=== PATIENT | male | born 1950 | race Caucasian/White ===

== ENCOUNTER 2018-08-11 07:48 | Day surgery (SDC) | payer MEDICARE, OTHER ==
[~2018-08-11 07:48] MED LIST: ALPRAZolam 0.25 MG TAB PO PRN; ALPRAZolam 0.5 MG TAB PO PRN; ASPIRIN 325 MG TAB PO STA; ATORVASTATIN 80 MG TAB PO STA; NITROGLYCERIN SL TABS 0.4 MG TAB SUBLINGUAL PRN; SODIUM CHLORIDE 0.9% 1,000 ML in EMPTY BAG 1 BAG IV ONE
[2018-08-11] MEDS ORDERED: fentaNYL (PF) 50 MCG/ML 2 ML AMP IVP ONE (12:57)
[2018-08-11] MEDS ORDERED: LIDOCAINE 1% INJ 10MG/ML (20 ML MDV) SQ ONE (12:58)
[2018-08-11] MEDS ORDERED: VERAPAMIL SYRINGE (5 MG/10 ML) INTRAARTER ONE (13:00)
[2018-08-11] MEDS ORDERED: MIDAZOLAM (PF) 2 MG/2 ML VIAL IVP ONE (13:01)
[2018-08-11] MEDS ORDERED: BIVALIRUDIN 250 MG in SODIUM CHLORIDE 0.9% 50 ML IV ONE (13:09)
[2018-08-11] MEDS ORDERED: BIVALIRUDIN BOLUS 250 MG/50 ML IV ONE (13:09)
[2018-08-11] MEDS ORDERED: PRASUGREL 10 MG TAB ONE (13:12)
[2018-08-11] MEDS ORDERED: PRASUGREL 10 MG TAB PO ONE (13:14)
[2018-08-11] MEDS ORDERED: IOPAMIDOL-370 125ML BTL INJ ONE (13:25)
[2018-08-11] MEDS ORDERED: NITROGLYCERIN 1000MCG/10ML SYRINGE INTRACORON ONE (13:29)
[2018-08-11] MEDS ORDERED: IOPAMIDOL-370 100ML BTL INJ ONE (13:41)
[2018-08-11] MEDS ORDERED: NITROGLYCERIN SL TABS 0.4 MG TAB SUBLINGUAL PRN (13:51)
[2018-08-11] MEDS ORDERED: ATROPINE SULFATE 0.1 MG/ML 10ML SYRINGE IV PRN (13:51)
[2018-08-11] MEDS ORDERED: MAG HYDROX/AL HYDROX/SIMETH 30 ML CUP PO PRN (13:51)
[2018-08-11] MEDS ORDERED: RX INFO: IV CONTRAST WAS GIVEN 1 EACH MISC MISCELLANE PRN (13:51)
[2018-08-11] MEDS ORDERED: ZOLPIDEM 5 MG TAB PO PRN (13:51)
[2018-08-11] MEDS ORDERED: TRIAMCINOLONE 0.1% CREAM 80 GM TUBE TOPICAL PRN (13:53)
[2018-08-11] MEDS ORDERED: SODIUM CHLORIDE 0.9% 1,000 ML IV SCH (14:00)
[2018-08-11] MEDS ORDERED: ACETAMINOPHEN TAB 325 MG TAB PO PRN (16:42)
--- NOTE | 2018-08-11 18:59 | CC ---
CARDIAC CATHETERIZATION REPORT Mr. Devries is a 68-year-old male with history of hypertension and hyperlipidemia who has been complaining of new onset chest discomfort, exertional in pattern with T-wave inversion anteriorly. In view of that, recommendation made regarding cardiac catheterization. The procedures as well as risks and complications were discussed with the patient who are in full understanding and agreement. DESCRIPTION OF PROCEDURE: Patient was brought to the cath lab radiology technician in a fasting semisedate state after receiving fentanyl and Benadryl and achieving moderate conscious sedated state. Using Xylocaine anesthesia and Seldinger technique, a a 6-Ghanaian sheath was introduced in the right radial artery. Selective right and left coronary angiography was performed using 5- Ghanaian 3 and half bend right and left [place] catheter. Multiple views of the coronary artery including hemiaxial views were obtained. Following that, angioplasty and stenting was performed. Following that, a 5-Ghanaian tight pigtail catheter was introduced into the left ventricle and a 30 degree GE view of the left ventricle was obtained. Following that, catheter and sheath were removed. Hemostasis was obtained with deployment of a TR band. There was no immediate complication. Patient was returned to his room in stable condition. FINDINGS: LEFT MAIN: This is a short size vessel bifurcating into left circumflex and left anterior descending artery. Left main coronary artery has no evidence of high-grade stenosis. LEFT ANTERIOR DESCENDING ARTERY: This is a large-sized vessel reaching toward the apex giving rise to 2 diagonal branches. The left anterior descending artery proximally has a 99% stenosis. The diagonal branch has mild plaque of 30%. The rest of the vessel has no high-grade stenosis. LEFT CIRCUMFLEX: This is a nondominant vessel giving rise to 3 obtuse marginal branches. The third one is largest in caliber. The left circumflex is about 20% plaque in the mid segment. The rest of the vessel has no high-grade stenosis. RIGHT CORONARY ARTERY: This is a large dominant vessel bifurcating distally into PDA and posterolateral segment and branches. The right coronary artery as well as branches have no evidence of obstructive coronary artery disease. LEFT VENTRICULOGRAM: Left ventriculogram was performed in 30 degree GE view and revealed mild distal anterior wall hypokinesis. Ejection fraction 50%. There was no significant mitral regurgitation. HEMODYNAMICS: There was no gradient across the aortic valve. The left ventricle end-diastolic pressure was 14 mmHg. CONCLUSION: 1. Critical stenosis involving the proximal left anterior descending artery. 2. Mild disease in the left circumflex. 3. Minimally impaired left ventricular systolic function. RECOMMENDATIONS: In view of finding anatomy, I recommend proceeding with angioplasty and stenting. The procedure as well as risks and complication were discussed with the patient who is in full understanding and agreement. KACEY / CLEMENTE: [id number] /
--- NOTE | 2018-08-11 19:03 | PTCA ---
PERCUTANEOUSTRANS CORORONARY ANGIOGRAPHY Mr. Devries 68-year-old male, history of hypertension, hyperlipidemia, who has been complaining of new onset angina pectoris, underwent cardiac catheterization, was found to have critical stenosis involving the proximal LAD. In view of that, recommendation was made regarding angioplasty and stenting. The procedure as well as risks and complications were discussed with the patient who is in full understanding and agreement. PROCEDURE: A 6-Slovenian FL 3.5 guiding catheter was introduced into the system. After cannulating the left main a 0.014 balanced medium weight J-wire was advanced across the lesion, positioned distally, then a 2.5 x 12 mm Trek balloon was advanced and one inflation at 8 atmospheres was done. Following that, the balloon was removed and a 2.5 x 15 mm Xience Marlene stent was deployed. It was dilated at 16 atmospheres. After the last inflation, after appropriate wait, the balloon and the guidewire were withdrawn back in the guiding catheter. Images were obtained, repeated. Those images reveal stable successful stenting. At that point, the guiding catheter, the balloon and the guidewire were removed. The left ventriculogram was performed. Following that, the catheter and sheath were removed. Hemostasis was obtained with deployment of a TR band. There was no immediate complication. Patient was returned to his room in stable condition. Of note, the patient received Angiomax per protocol as well as oral loading dose of Effient. He had chest discomfort and EKG changes with the inflations that improved at the end of the procedure. RESULTS: Successful stenting of the proximal LAD with reduction of stenosis from 99% to 0%. RECOMMENDATIONS: Patient will be continued on aspirin, Effient, beta blockers, vivien inhibitors and statin. The importance of dual antiplatelet treatment was discussed with the patient and his family and they are in full understanding and agreement. DURATION OF PROCEDURE: 47 minutes. MMODL / IJN: [id number] /
--- NOTE | 2018-08-11 19:08 | LTR ---
DATE OF SERVICE: 08/11/[address] Valle: I had the pleasure of performing cardiac catheterization and coronary angioplasty and stenting on Mr. Devries at [facility] on August 11 and a full copy of procedure note will be forwarded to you. In brief, he underwent successful stenting of his proximal LAD. I am hopeful that this procedure will stabilize his status. Thank you again for allowing me to participate in his care. Please feel free to call with any questions. Sincerely, KACEY / CLEMENTE: [id number] /
[2018-08-11] MEDS: METOPROLOL TARTRATE 25 MG TAB PO SCH (20:46)
[2018-08-11] MEDS ORDERED: LISINOPRIL 20 MG TAB PO SCH (21:00)
[2018-08-11] MEDS ORDERED: ATORVASTATIN 80 MG TAB PO SCH (21:00)
[2018-08-11] MEDS ORDERED: amLODIPine 5 MG TAB PO SCH (21:00)
[2018-08-12 01:08] VITALS: BMI 30.9
[2018-08-12 01:18] VITALS: PULSE 56
[2018-08-12] MEDS ORDERED: LEVOTHYROXINE 112 MCG TAB PO SCH (06:30)
[2018-08-12 07:00] LABS: Anion Gap 7 mmol/L; Blood Urea Nitrogen 19 mg/dL (9-20); Calcium 9.3 mg/dL (8.4-10.2); Carbon Dioxide 27 mmol/L (22-30); Chloride 109 mmol/L (98-107); Glucose 99 mg/dL (74-99); Potassium 4.5 mmol/L (3.5-5.1); Sodium 143 mmol/L (137-145)
[2018-08-12] MEDS ORDERED: PANTOPRAZOLE 40 MG TABLET PO SCH (07:30)
--- NOTE | 2018-08-12 07:49 | P.PN ---
Subjective Progress Note Date: 08/12/18 Discharge note This is a pleasant 68-year-old gentleman with history of hypertension and hyperlipidemia, he was brought to the hospital yesterday by Dr. Andres underwent a cardiac catheterization which revealed a critical stenosis involving the proximal LAD with mild disease in the circumflex. Subsequent to that patient underwent stent placement of the LAD. He was seen and examined this morning, denied any chest pain or difficulty in breathing. Hemodynamically stable. Sodium 143, potassium 4.5, BUN 19 and creatinine 0.9. Objective - Vital Signs Vital signs: Vital Signs Temp 98.4 F 08/12/18 00:00 Pulse 56 L 08/12/18 00:00 Resp 18 08/12/18 00:00 BP 133/74 08/12/18 00:00 Pulse Ox 93 L 08/12/18 00:00 Intake & Output 08/11/18 08/12/18 08/12/18 18:59 06:59 18:59 Intake Total 185 Output Total 1 Balance 185 -1 Weight 101.7 kg Intake: IV 185 Output: Urine 1 Other: Voiding Method Toilet # Voids 1 - Exam PHYSICAL EXAMINATION: GENERAL: 68-year-old gentleman in no acute distress at the time of my examination HEENT: Head is atraumatic, normocephalic. Pupils equal, round. Sclera anicteric. Conjunctiva are clear. Mucous membranes of the mouth are moist. Neck is supple. There is no elevated jugular venous pressure. No carotid bruit is heard. HEART EXAMINATION: Heart S1, S2 normal. No murmur or gallop heard. CHEST EXAMINATION: Lungs are clear to auscultation and precussion. No chest wall tenderness is noted on palpation or with deep breathing. ABDOMEN: Soft, nontender. Bowel sounds are heard. No organomegaly noted. EXTREMITIES: 2+ peripheral pulses with no evidence of peripheral edema and no calf tenderness noted. Right radial site clean and dry, good distal pulse. NEUROLOGIC patient is awake, alert and oriented 3 . . - Labs CBC & Chem 7: 08/12/18 05:44 Labs: Abnormal Lab Results - Last 24 Hours (Table) 08/12/18 Range/Units 05:44 Chloride 109 H (98-107) mmol/L Assessment and Plan Plan: Assessment and plan #1 status post angioplasty and stenting of the LAD #2 hypertension #3 hyperlipidemia Plan Patient may be discharged home today. Follow-up appointment with Dr. Andres in the office in one week. Discharge medications include aspirin 81 mg daily, Lipitor 80 mg daily, Synthroid 112 g daily, Zestril 20 mg daily, metoprolol 25 mg twice a day, Effient 10 mg daily and sublingual nitroglycerin as needed for chest pain. DNP note has been reviewed, I agree with a documented findings and plan of care. Patient was seen and examined.
[2018-08-12] MEDS: METOPROLOL TARTRATE 25 MG TAB PO SCH (08:21)
[2018-08-12 08:56] VITALS: BP 120/69; RESP 20; TEMP 98.2
[2018-08-12] MEDS ORDERED: ASPIRIN 81 MG PO SCH (09:00)
[2018-08-12] MEDS ORDERED: MONTELUKAST 10 MG TAB PO SCH (09:00)
[2018-08-12] MEDS ORDERED: PRASUGREL 10 MG TAB PO SCH (12:00)
[2018-08-13] MEDS ORDERED: CLOPIDOGREL 75 MG TAB PO SCH (09:00)
== END 2018-08-12 11:13 | disposition home or self-care (01) ==
LOC: CATHCVL 07:48 → 3SCARD 13:44 → CATHCVL 08-12 11:13
PROVIDERS: ATTEND Internal Medicine Interventional Cardiology
DX: I25.110 Atherosclerotic heart disease of native coronary artery with unstable angina pectoris (principal); I10 Essential (primary) hypertension; E78.2 Mixed hyperlipidemia; E78.00 Pure hypercholesterolemia, unspecified; Z82.49 Family history of ischemic heart disease and other diseases of the circulatory system; Z79.82 Long term (current) use of aspirin; Z79.890 Hormone replacement therapy; Z79.899 Other long term (current) drug therapy; Z88.0 Allergy status to penicillin
CPT/HCPCS: 94760; 93458; 80048; C9600; C1769 ×2; C1887; C1894; C1725; C1874; J2001; J3010; J0583; Q9967 ×2; J2250

== ENCOUNTER → 2018-11-05 | Outpatient (CLI) | payer MEDICARE, OTHER ==
[2018-11-05 17:11] LABS: Chol/HDL Ratio 3.83; LDL Cholesterol,Calculated 57.8 mg/dL (0.0-131.0); VLDL Calculation 24.2 mg/dL (5.00-40.00)
== END | disposition home or self-care (01) ==
LOC: LABWHC1 09:04
PROVIDERS: ATTEND Nurse Practitioner Adult Health
DX: E78.2 Mixed hyperlipidemia (principal)
CPT/HCPCS: 36415; 80061; 84450; 84460

== ENCOUNTER → 2019-03-05 | Outpatient (CLI) | payer MEDICARE, OTHER ==
[2019-03-05 16:01] LABS: Albumin 4.5 g/dL (3.80-4.90); Albumin/Globulin Ratio 2.81 (1.60-3.17); Anion Gap 6.1 mmol/L (4.00-12.00); Calcium 9.2 mg/dL (8.7-10.3); Carbon Dioxide 25.9 mmol/L (21.6-31.8); Chol/HDL Ratio 3.94; Globulin 1.6 g/dL (1.6-3.3); LDL Cholesterol,Calculated 63.2 mg/dL (0.0-131.0); Non-African American GFR(CKD) 75.9 (60.0-200.0); Potassium 4.2 mmol/L (3.5-5.5); Total Bilirubin 0.9 mg/dL (0.2-1.2); Total Protein 6.1 g/dL (6.2-8.2); VLDL Calculation 27.8 mg/dL (5.00-40.00)
== END | disposition home or self-care (01) ==
LOC: LABWHC1 09:39
PROVIDERS: ATTEND Internal Medicine Interventional Cardiology
DX: E78.2 Mixed hyperlipidemia (principal)
CPT/HCPCS: 36415; 80053; 80061

== ENCOUNTER → 2019-08-19 | Outpatient (CLI) | payer MEDICARE ==
[2019-08-19 16:33] LABS: Albumin 4.5 g/dL (3.80-4.90); Albumin/Globulin Ratio 2.65 (1.60-3.17); Anion Gap 8.2 mmol/L (4.00-12.00); Calcium 9.2 mg/dL (8.7-10.3); Carbon Dioxide 25.8 mmol/L (21.6-31.8); Chol/HDL Ratio 3.86; Globulin 1.7 g/dL (1.6-3.3); LDL Cholesterol,Calculated 61.4 mg/dL (0.0-131.0); Non-African American GFR(CKD) 75.9 (60.0-200.0); Potassium 4.4 mmol/L (3.5-5.5); Total Protein 6.2 g/dL (6.2-8.2); VLDL Calculation 21.6 mg/dL (5.00-40.00)
== END | disposition home or self-care (01) ==
LOC: LABWHC1 10:11
PROVIDERS: ATTEND Internal Medicine Interventional Cardiology
DX: E78.2 Mixed hyperlipidemia (principal)
CPT/HCPCS: 36415; 80053; 80061

== ENCOUNTER → 2020-02-11 | Outpatient (CLI) | payer MEDICARE ==
[2020-02-11 20:20] LABS: Albumin 4.5 g/dL (3.80-4.90); Albumin/Globulin Ratio 2.65 (1.60-3.17); Anion Gap 5.8 mmol/L (4.00-12.00); Calcium 9.3 mg/dL (8.7-10.3); Carbon Dioxide 29.2 mmol/L (21.6-31.8); Chol/HDL Ratio 3.91; Globulin 1.7 g/dL (1.6-3.3); Non-African American GFR(CKD) 75.9 (60.0-200.0); Potassium 4.5 mmol/L (3.5-5.5); Total Bilirubin 0.7 mg/dL (0.2-1.2); Total Protein 6.2 g/dL (6.2-8.2)
== END | disposition home or self-care (01) ==
LOC: LABWHC1 12:42
PROVIDERS: ATTEND Nurse Practitioner Adult Health
DX: I10 Essential (primary) hypertension (principal); I25.5 Ischemic cardiomyopathy; E78.2 Mixed hyperlipidemia
CPT/HCPCS: 36415; 80053; 80061

== ENCOUNTER → 2020-02-18 | Day surgery (SDC) | payer MEDICARE ==
[2020-02-16 12:22] VITALS: BMI 30.2
[~2020-02-18] MED LIST changes: +ASPIRIN 325 MG TAB PO ONE; -ASPIRIN 325 MG TAB PO STA; +ASPIRIN 81 MG ONE; +ASPIRIN 81 MG PO SCH; +ATORVASTATIN 80 MG TAB PO ONE; +ATORVASTATIN 80 MG TAB PO SCH; -ATORVASTATIN 80 MG TAB PO STA; +BENAZEPRIL HCL 20 MG PO SCH; +CHOLECALCIFEROL 1,000 UNIT TAB PO SCH; +FAMOTIDINE 20 MG/2 ML VIAL IV ONE; +FLUTICASONE 50MCG/SPRAY NASAL 16GM EA NOSTRIL SCH; +HEPARIN SODIUM 1,000 UN/ML (10ML VL) IV ONE; +HYDROPHILIC CREAM 120 GM JAR TOPICAL PRN; +IOPAMIDOL-370 125ML BTL INJ ONE; +ISOSORBIDE MONONITRATE ER 30 MG TAB.ER.24H PO SCH; +LEVOTHYROXINE 125 MCG TAB PO SCH; +LIDOCAINE 1% INJ 10MG/ML (20 ML MDV) SQ ONE; +MD COMMUNICATION TO PHARMACY 1 EACH MISC PO ONE; +METOPROLOL TARTRATE 25 MG TAB PO SCH; +MONTELUKAST 10 MG TAB PO SCH; +NON FORMULARY DRUG (Saw Palmetto [Saw Palmetto] 500 MG Capsule) PO SCH; +PANTOPRAZOLE 40 MG TABLET PO SCH; +RX INFO: IV CONTRAST WAS GIVEN 1 EACH MISC MISCELLANE PRN; +SODIUM CHLORIDE 0.9% 1,000 ML IV SCH; +VERAPAMIL SYRINGE (5 MG/10 ML) INTRAARTER ONE; +amLODIPine 5 MG TAB PO SCH; +diphenhydrAMINE 50 MG/ML 1 ML VIAL IVP STA; +fentaNYL (PF) 50 MCG/ML 2 ML AMP IV ONE; +methylPREDNISolone SOD SUCCI 125 MG/2 ML VIAL IV STA
[2020-02-18 06:37] LABS: Basophils # (A) 0.1 k/uL (0-0.2); Basophils % (A) 1 %; Eosinophils # (A) 0.2 k/uL (0-0.7); Eosinophils % (A) 2 %; HCT 48.3 % (39.0-53.0); HGB 16.2 gm/dL (13.0-17.5); Lymphocytes # (A) 1.6 k/uL (1.0-4.8); Lymphocytes % (A) 20 %; MCH 29.5 pg (25.0-35.0); MCHC 33.5 g/dL (31.0-37.0); Mean Platelet Volume 7.1; Monocytes # (A) 0.5 k/uL (0-1.0); Monocytes % (A) 6 %; Neutrophils # (A) 5.7 k/uL (1.3-7.7); Neutrophils % (A) 70 %; Platelet Count 218 k/uL (150-450); RBC 5.49 m/uL (4.30-5.90); RDW 12.8 % (11.5-15.5); WBC 8.1 k/uL (3.8-10.6)
[2020-02-18 06:41] VITALS: RESP 18
[2020-02-18 06:46] LABS: African American GFR (CKD) >90 (>60 ml/min/1.73 sqM); Anion Gap 6 mmol/L; Blood Urea Nitrogen 22 mg/dL (9-20); Calcium 9.4 mg/dL (8.4-10.2); Carbon Dioxide 29 mmol/L (22-30); Chloride 107 mmol/L (98-107); Glucose 121 mg/dL (74-99); Non-African American GFR(CKD) 83 (>60 ml/min/1.73 sqM); Potassium 3.9 mmol/L (3.5-5.1); Sodium 142 mmol/L (137-145)
[2020-02-18 07:16] VITALS: TEMP 98.3
--- NOTE | 2020-02-18 10:23 | P.GSCN ---
History of Present Illness Consult date: 02/18/20 Reason for Consult: CAD Requesting physician: Olivier Andres History of present illness: This is a 69-year-old gentleman who follows at the [facility] for primary care and with Dr. Andres for cardiology. He has a previous medical history of coronary artery disease with stenting to his LAD in August 2018, hypertension, hyperlipidemia, hypothyroidism, osteoarthritis, tobacco use as a teenager but none since, and family history of premature coronary artery disease with 2 brothers diagnosed before the age of 60. He presented today for elective heart catheterization with Dr. Andres after having exertional chest discomfort and shortness of breath for the previous 6 months which he states was similar to his prior stent placement. Heart catheterization revealed 99% stenosis to the proximal LAD. Due to this finding Dr. Arias from cardiothoracic surgery was consulted for surgical revascularization recommendations. Of note he had a transthoracic echocardiogram in the office 01/25/2020 which demonstrated normal LV size with ejection fraction 45-50%, grade 1 diastolic dysfunction, mild left ventricular hypertrophy, mild mitral regurgitation with calcified mitral valve, and mild tricuspid valve regurgitation. Review of Systems Review of systems was completed and was negative except as noted - Cardiovascular Reports as per HPI, Reports chest pain, Reports decreased exercise tolerance, Reports dyspnea on exertion Past Medical History Past Medical History: Coronary Artery Disease (CAD), Chest Pain / Angina, G ERD/Reflux, Hearing Disorder / Deafness, Hyperlipidemia, Hypertension, Skin Disorder, Thyroid Disorder Additional Past Medical History / Comment(s): c/o shortness of breath w/ exercise, then CP. Arthritis. Skin is itchy, no known diagnosis. History of Any Multi-Drug Resistant Organisms: None Reported Past Surgical History: Heart Catheterization With Stent, Hernia Repair Additional Past Surgical History / Comment(s): nasal polyp surgeries, hernia surgeries Past Anesthesia/Blood Transfusion Reactions: No Reported Reaction, Motion Sickness Date of Last Stent Placement:: 08/2018 Past Psychological History: No Psychological Hx Reported Smoking Status: Never smoker Past Alcohol Use History: Rare Past Drug Use History: None Reported - Past Family History Mother Family Medical History: Cancer Brother(s) Family Medical History: Coronary Artery Disease (CAD), CVA/TIA, Myocardial Infarction ([place]) Father Family Medical History: COPD, Coronary Artery Disease (CAD) Medications and Allergies Home Medications Medication Instructions Recorded Confirmed Type Fluticasone Nasal [place] [Flonase 2 spr EA NOSTRIL HS 02/16/15 02/18/20 History Nasal [place]] Levothyroxine Sodium [Synthroid] 125 mcg PO DAILY 02/16/15 02/18/20 History Montelukast [Singulair] 10 mg PO DAILY 02/16/15 02/18/20 History Saw [place] 450 mg PO BID 02/16/15 02/18/20 History Aspirin [Adult Low Dose Aspirin EC] 81 mg PO DAILY 08/08/18 02/18/20 History Omeprazole 20 mg PO DAILY 08/08/18 02/18/20 History Metoprolol Tartrate 25 mg PO BID 08/11/18 02/18/20 History Atorvastatin [Lipitor] 80 mg PO HS #303 tab 08/12/18 02/18/20 Rx Nitroglycerin Sl Tabs [Nitrostat] 0.4 mg SUBLINGUAL Q5M PRN #25 tab 08/12/18 02/18/20 Rx Acetaminophen [Tylenol Extra 500 - 1,000 mg PO DIRECTED PRN 02/16/20 02/18/20 History Strength] Benazepril HCl [Lotensin] 20 mg PO HS 02/16/20 02/18/20 History Cholecalciferol [Vitamin D3 (25 2,000 unit PO DAILY 02/16/20 02/18/20 History Mcg = 1000 Iu)] Hydrophilic Cream [Kerodex 71 1 applic TOPICAL DAILY PRN 02/16/20 02/18/20 History Cream] amLODIPine [Norvasc] 5 mg PO HS 02/16/20 02/18/20 History Isosorbide Mononitrate ER [Imdur] 30 mg PO DAILY #30 tab.er.24h 02/18/20 Rx Levothyroxine Sodium [Synthroid] 125 mcg PO DAILY tab 02/18/20 Rx Allergies Allergy/AdvReac Type Severity Reaction Status Date / Time Penicillins Allergy Rash/Hives Verified 02/18/20 06:15 Iodine and Iodide Containing AdvReac warm and Verified 02/18/20 06:15 Produc clammy Surgical - Exam Vital Signs Temp Pulse Resp BP Pulse Ox 98.3 F 56 L 18 123/70 95 02/18/20 06:39 02/18/20 06:39 02/18/20 06:39 02/18/20 06:39 02/18/20 06:39 - General well developed, well nourished, no distress, no pain - Eyes normal ocular movement - ENT decreased hearing - Neck no masses, no bruits, trachea midline - Respiratory Lungs sounds clear bilaterally. Respirations even, nonlabored. Currently on room air with oxygen saturation 92%. No chest wall deformities. No clubbing or cyanosis present. - Cardiovascular S1, S2 present. Regular rate and rhythm, sinus rhythm on telemetry. Palpable peripheral pulses bilaterally. No edema present. No calf pain or tenderness noted. - Abdomen Abdomen: soft, non tender, bowel sounds - Genitourinary Deferred - Rectum Deferred - Integumentary no rash, no growths - Neurologic normal coordination, normal sensation - Musculoskeletal normal posture - Psychiatric oriented to time, oriented to person, oriented to place, speech is normal, memory intact Results - Labs 02/18/20 06:25 02/18/20 06:25 Abnormal Lab Results - Last 24 Hours (Table) 02/18/20 Range/Units 06:25 BUN 22 H (9-20) mg/dL Glucose 121 H (74-99) mg/dL Diabetes panel 02/18/20 Range/Units 06:25 Sodium 142 (137-145) mmol/L Potassium 3.9 (3.5-5.1) mmol/L Chloride 107 (98-107) mmol/L Carbon Dioxide 29 (22-30) mmol/L BUN 22 H (9-20) mg/dL Creatinine 0.93 (0.66-1.25) mg/dL Glucose 121 H (74-99) mg/dL Calcium 9.4 (8.4-10.2) mg/dL Calcium panel 02/18/20 Range/Units 06:25 Calcium 9.4 (8.4-10.2) mg/dL Pituitary panel 02/18/20 Range/Units 06:25 Sodium 142 (137-145) mmol/L Potassium 3.9 (3.5-5.1) mmol/L Chloride 107 (98-107) mmol/L Carbon Dioxide 29 (22-30) mmol/L BUN 22 H (9-20) mg/dL Creatinine 0.93 (0.66-1.25) mg/dL Glucose 121 H (74-99) mg/dL Calcium 9.4 (8.4-10.2) mg/dL Adrenal panel 02/18/20 Range/Units 06:25 Sodium 142 (137-145) mmol/L Potassium 3.9 (3.5-5.1) mmol/L Chloride 107 (98-107) mmol/L Carbon Dioxide 29 (22-30) mmol/L BUN 22 H (9-20) mg/dL Creatinine 0.93 (0.66-1.25) mg/dL Glucose 121 H (74-99) mg/dL Calcium 9.4 (8.4-10.2) mg/dL - Imaging Additional studies: Heart catheterization films reviewed Assessment and Plan Assessment: 1. Coronary artery disease, 99% proximal LAD stenosis, previous stent placement in August 2018 2. History of hypertension 3. History of hyperlipidemia 4. Hypothyroidism 5. Family history of premature coronary artery disease Plan: The patient was seen and examined at the bedside in the extended stay unit with the present. Chart/diagnostics were reviewed. The usual perioperative course of coronary artery bypass surgery was discussed in detail with the vahid paredes and his , risks and benefits were reviewed, all questions were answered, and the patient did consent to surgery. Preoperative testing was initiated. We will calculate STS risk score once testing has been completed. Recommend continuing aspirin, statin, beta bakari therapy. The patient's heart catheterization films will be reviewed today by Dr. Arias, further recommendations to follow regarding timing of surgery. Medical management of other comorbidities per Dr. Andres. Thank you Dr. Andres for this consult. We look forward to working with you in the care of your patient Time with Patient: Greater than 30
--- NOTE | 2020-02-18 10:26 | XR ---
EXAMINATION TYPE: XR chest 2V DATE OF EXAM: 02/18/2020 COMPARISON: NONE HISTORY: Preopen cardiac surgery. TECHNIQUE: Frontal and lateral views of the chest are obtained. FINDINGS: There is no focal air space opacity, pleural effusion, or pneumothorax seen. The cardiac silhouette size is upper limits of normal with atherosclerotic change aortic knob. The osseous stru ctures are intact. Overlying EKG leads. IMPRESSION: No acute cardiopulmonary process.
--- NOTE | 2020-02-18 10:41 | CC ---
CARDIAC CATHETERIZATION REPORT Mr. Devries is a 69-year-old male with known history of coronary artery disease who in August 2018 underwent stenting of his proximal LAD. He had for the last few months symptoms of progressive dyspnea on exertion and chest discomfort. In view of that, recommendation regarding cardiac catheterization, the procedures, risks, and complication were discussed with the patient who is in full understanding and agreement. PROCEDURE: Patient was brought to the senior cytogenetics laboratory director in a fasting semi-sedated state after receiving fentanyl and Benadryl and achieving moderate conscious sedated state. Using Xylocaine anesthesia and Seldinger technique, a 6-Burmese sheath was introduced in the right radial artery. Selective right and left coronary angiography performed using 5-Burmese 3.5 bend, right and left [place] catheter, multiple views of the coronary artery including hemiaxial views obtained. Following that, a 5-Burmese tight pigtail catheter was introduced in the left ventricle and a 30-degree GE view of the left ventricle was obtained. Following that, catheter and sheath were removed. Hemostasis was obtained with deployment of a TR band. There was no immediate complication. Patient is returned to his room in stable condition. Of note, the patient received 5000 units of intravenous heparin as well as intra-arterial verapamil. FINDINGS: LEFT MAIN: This is a short size vessel, bifurcating into left circumflex, left anterior descending artery. Left main artery has no evidence of high-grade stenosis. LEFT ANTERIOR DESCENDING ARTERY: This is a large-sized vessel, reaching toward the apex with a wraparound apex segment, giving rise to 2 diagonal branches and the second one is moderate in caliber. The first one is small. The left anterior descending artery at the ostium has a 99% stenosis, extending to the proximal stent with severe in- stent restenosis. The rest of the vessel has no high-grade stenosis. LEFT CIRCUMFLEX: This is a nondominant vessel, giving rise to a large obtuse marginal branch. The left circumflex has mild intimal disease of 20% to 30% without any evidence of high-grade stenosis. RIGHT CORONARY ARTERY: This is a large dominant vessel, bifurcating into PDA and posterolateral segment and branches. The right coronary artery has mild intimal disease of 10% to 20% in the mid segment. COLLATERALS: There are faint collaterals with right septals toward the LAD. LEFT VENTRICULOGRAM: The ventriculogram was performed in 30-degree GE view and revealed a normal left ventricular size and systolic function. Ejection fraction of 50% to 55%. There was no significant mitral regurgitation. HEMODYNAMICS: There was no gradient across the aortic valve. The left ventricular end- diastolic pressure was 10 - 15 mmHg. CONCLUSION: 1. Severe in-stent restenosis of the LAD involving the ostium of the LAD. 2. Mild disease in the right coronary artery and the left circumflex. 3. Preserved left ventricular size and systolic function. RECOMMENDATION: In view of finding in the anatomy, I recommend proceeding with evaluation for coronary artery bypass grafting with HERNDON to LAD. Will obtain the surgical opinion and depending on that, further recommendation will be made. Those findings and recommendation were discussed with the patient and his family who are in full understanding and agreement. Duration of the procedure is 20 minutes. KACEY / MARIN: [id number] /
[2020-02-18 10:47] LABS: ALT 25 U/L (4-49); AST 22 U/L (17-59); African American GFR (CKD) >90 (>60 ml/min/1.73 sqM); Albumin 4.2 g/dL (3.5-5.0); Alkaline Phosphatase 77 U/L (38-126); Anion Gap 10 mmol/L; Blood Urea Nitrogen 20 mg/dL (9-20); Calcium 9.2 mg/dL (8.4-10.2); Carbon Dioxide 24 mmol/L (22-30); Chloride 107 mmol/L (98-107); Glucose 176 mg/dL (74-99); Magnesium 1.8 mg/dL (1.6-2.3); Non-African American GFR(CKD) 88 (>60 ml/min/1.73 sqM); Sodium 141 mmol/L (137-145); Total Bilirubin 0.9 mg/dL (0.2-1.3); Total Protein 6.5 g/dL (6.3-8.2)
[2020-02-18 10:56] LABS: Partial Thromboplastin Time 36.9 sec (22.0-30.0); Prothrombin Time 10.3 sec (9.0-12.0)
[2020-02-18 11:28] LABS: Appearance,Urine Clear (Clear); Bilirubin,Urine Negative (Negative); Blood,Urine Negative (Negative); Color,Urine Light Yellow; Glucose,Urine (UA) Negative (Negative); Ketones,Urine Negative (Negative); Leukocyte Esterase,Urine Negative (Negative); Nitrite,Urine Negative (Negative); PH, Urine 7.5 (5.0-8.0); Protein,Urine Negative (Negative); Specific Gravity,Urine 1.033 (1.001-1.035); Urobilinogen,Urine <2.0 mg/dL (<2.0)
--- NOTE | 2020-02-18 12:48 | US ---
EXAMINATION TYPE: US carotid duplex BILAT DATE OF EXAM: 02/18/2020 COMPARISON: NONE CLINICAL HISTORY: Pre-Op Cardiac Surgery. Pre-Op CABG EXAM MEASUREMENTS: RIGHT: Peak Systolic Velocity (PSV) cm/sec ----- Right CCA: 82.3 ----- Right ICA: 119.4 ----- Right ECA: 163.4 ICA/CCA ratio: 1.4 RIGHT: End Diastole cm/sec ----- Right CCA: 13.1 ----- Right ICA: 28.9 ----- Right ECA: 7.7 LEFT: Peak Systolic Velocity (PSV) cm/sec ----- Left CCA: 82.3 ----- Left ICA: 60.1 ----- Left ECA: 206.0 ICA/CCA ratio: 0.7 LEFT: End Diastole cm/sec ----- Left CCA: 13.1 ----- Left ICA: 16.5 ----- Left ECA: 16.4 VERTEBRALS (direction of flow): Right Vertebral: Antegrade Left Vertebral: Antegrade Rhythm: Normal Buckley scale images show mild to moderate eccentric plaque carotid bulb level left greater than right. Velocity measurements and ratios remain within normal limits and visualized portion of both internal carotid arteries. IMPRESSION: Mild to moderate atherosclerotic changes bilaterally without hemodynamically significant stenosis seen in either internal carotid artery. Criteria for Assigning % of Stenosis / Diameter reduction (Estimation based on the indirect measurements of the internal carotid artery velocities (ICA PSV). 1. Normal (no stenosis)=ICA PSV < 125 cm/s: ratio < 2.0: ICA EDV<40 cm/s. 2. Less than 50% stenosis=ICA PSV < 125 cm/s: ratio < 2.0: ICA EDV<40 cm/s. 3. 50 to 69% stenosis=ICA PSV of 125 to 230 cm/s: ration 2.0 ? 4.0: ICA EDV 40-100 cm/s. 4. Greater than 70% stenosis to near occlusion= ICA PSV > 230 cm/s: ratio > 4.0: ICA EDV > 100 cm/s. 5. Near occlusion= ICA PSV velocities may be low or undetectable: variable ratio and ICA EDV. 6. Total occlusion=unable to detect flow.
[2020-02-18 16:01] VITALS: BP 149/73; PULSE 82
[2020-02-18 18:23] LABS: Hepatitis A Antibody IgM Non-Reactive (Non-Reactive); Hepatitis B Core IgM Non-Reactive (Non-Reactive); Hepatitis B Surface Antigen Non-Reactive (Non-Reactive); Hepatitis C IgG Antibody Non-Reactive (Non-Reactive)
== END | disposition home or self-care (01) ==
LOC: CATHCVL 06:07
PROVIDERS: ATTEND Internal Medicine Interventional Cardiology
DX: I25.110 Atherosclerotic heart disease of native coronary artery with unstable angina pectoris (principal); T82.855A Stenosis of coronary artery stent, initial encounter; I10 Essential (primary) hypertension; I25.5 Ischemic cardiomyopathy; Z87.891 Personal history of nicotine dependence; E78.2 Mixed hyperlipidemia; Z82.49 Family history of ischemic heart disease and other diseases of the circulatory system; Z79.02 Long term (current) use of antithrombotics/antiplatelets; Z79.82 Long term (current) use of aspirin; Z79.899 Other long term (current) drug therapy; Z88.0 Allergy status to penicillin
CPT/HCPCS: 94150; 93458; 86900; 86901; 80053; 80074; 84443; 83735; 85025; 85610; 85730; 86850; 81003; 87070; 83036; 71046; 93970; 93922; 93880; C1769; C1894; U0003; J1200; J2930; J2001; J3010; J1644; Q9967; 80048

== ENCOUNTER 2020-02-25 05:44 | Inpatient (IN) | payer MEDICARE ==
--- NOTE | 2020-02-23 10:33 | P.PN ---
Progress Note - Text Progress Note Date: 02/23/20 5 meter walk test completed without difficulty: #1 4.52 #2 4.04 #3 3.89
[~2020-02-25 05:44] MED LIST changes: +ALBUMIN HUMAN 25% 50 ML IV ONE; +ALBUMIN HUMAN 5% 500 ML IVPB ONE; -ALPRAZolam 0.25 MG TAB PO PRN; -ALPRAZolam 0.5 MG TAB PO PRN; -ASPIRIN 81 MG ONE; -ASPIRIN 81 MG PO SCH; +ATORVASTATIN 10 MG TAB PO ONE; -ATORVASTATIN 80 MG TAB PO ONE; -ATORVASTATIN 80 MG TAB PO SCH; -BENAZEPRIL HCL 20 MG PO SCH; +CALCIUM CHLORIDE 100 MG/ML 10 ML SYRINGE IV ONE; +CARDIOPLEGIC SOLN (K+ 16 MEQ/L 1,000 ML with SODIUM BICARB (1 MEQ/ML) 20 ML, LIDOCAINE ... PERFUSION ONE; +CHLORHEXIDINE GLUCONATE 15 ML CUP MUCOUS MEM ONE; -CHOLECALCIFEROL 1,000 UNIT TAB PO SCH; +CLEVIDIPINE BUTYRATE 25 MG in EMPTY BAG 1 BAG IV ONE; +DEXTROSE 5% IN WATER 1,000 ML with POTASSIUM CHLORIDE 110 MEQ, MAGNESIUM SULFATE 16 MEQ... IV ONE; +DEXTROSE 5% IN WATER 1,000 ML with POTASSIUM CHLORIDE 25 MEQ, SODIUM CHLORIDE 2.5MEQ/ML... IRRIGATION ONE; -FAMOTIDINE 20 MG/2 ML VIAL IV ONE; -FLUTICASONE 50MCG/SPRAY NASAL 16GM EA NOSTRIL SCH; +HEPARIN SODIUM,PORCINE 5,000 UNIT in SODIUM CHLORIDE 0.9% 500 ML 500 ML IV ONE; -HYDROPHILIC CREAM 120 GM JAR TOPICAL PRN; +INSULIN REGULAR 100 UNIT in SODIUM CHLORIDE 0.9% 100 ML IV ONE; -IOPAMIDOL-370 125ML BTL INJ ONE; -ISOSORBIDE MONONITRATE ER 30 MG TAB.ER.24H PO SCH; +LACTATED RINGERS 1,000 ML IV ONE; -LEVOTHYROXINE 125 MCG TAB PO SCH; -LIDOCAINE 1% INJ 10MG/ML (20 ML MDV) SQ ONE; +MAGNESIUM SULFATE MG 500 MG/ML IV ONE; +MANNITOL 25% 12.5 GM/50 ML VIAL IV ONE; -MD COMMUNICATION TO PHARMACY 1 EACH MISC PO ONE; +METOPROLOL TARTRATE 12.5 MG TAB PO ONE; -METOPROLOL TARTRATE 25 MG TAB PO SCH; -MONTELUKAST 10 MG TAB PO SCH; -NITROGLYCERIN SL TABS 0.4 MG TAB SUBLINGUAL PRN; +NITROGLYCERIN-D5W PMX 25 MG/250 ML BTL IV ONE; +NITROGLYCERIN-D5W PMX 50 MG in DEXTROSE/WATER 1 250ML.BAG IV ONE; -NON FORMULARY DRUG (Saw Palmetto [Saw Palmetto] 500 MG Capsule) PO SCH; +NOREPINEPHRINE 4 MG in SODIUM CHLORIDE 0.9% 250 ML IV ONE; -PANTOPRAZOLE 40 MG TABLET PO SCH; +PAPAVERINE 360 MG in SODIUM CHLORIDE 0.9% 90 ML IV ONE; +PHENYLEPHRINE 10 MG/ML VIAL IV ONE; +PHENYLEPHRINE 40 MG in SODIUM CHLORIDE 0.9% 250 ML IV ONE; +PROTAMINE SULFATE 10 MG/ML 25 ML VIAL IV ONE; +PROTAMINE SULFATE 250 MG in EMPTY BAG 1 BAG IV ONE; -RX INFO: IV CONTRAST WAS GIVEN 1 EACH MISC MISCELLANE PRN; +SODIUM BICARB 8.4% 50 ML SYR (1 MEQ/ML) IV ONE; +SODIUM CHLORIDE 0.9% 1,000 ML IV ONE; -SODIUM CHLORIDE 0.9% 1,000 ML IV SCH; -SODIUM CHLORIDE 0.9% 1,000 ML in EMPTY BAG 1 BAG IV ONE; +TRANEXAMIC ACID 2,000 MG in SODIUM CHLORIDE 0.9% 80 ML IV ONE; -VERAPAMIL SYRINGE (5 MG/10 ML) INTRAARTER ONE; -amLODIPine 5 MG TAB PO SCH; +ceFAZolin 1,000 MG in SODIUM CHLORIDE 0.9% IRRIGATIO 1,000 ML IRRIGATION ONE; +ceFAZolin 2,000 MG in SODIUM CHLORIDE 0.9% 30 ML IVPB ONE; -diphenhydrAMINE 50 MG/ML 1 ML VIAL IVP STA; -fentaNYL (PF) 50 MCG/ML 2 ML AMP IV ONE; -methylPREDNISolone SOD SUCCI 125 MG/2 ML VIAL IV STA; +propofoL 1,000 MG/100 ML VIAL IV ONE
[2020-02-25] MEDS ORDERED: TRANEXAMIC ACID 2,000 MG in SODIUM CHLORIDE 0.9% 80 ML IV ONE (06:00)
[2020-02-25] MEDS ORDERED: LIDOCAINE 1% (10MG/ML) FOR IV START INTRADERMA ONE (06:05)
[2020-02-25 06:44] LABS: Glucose,Whole Blood 114 mg/dL (75-99)
[2020-02-25] MEDS ORDERED: HEPARIN SODIUM,PORCINE 10,000 UNIT/ML 1 ML VIAL ONE (07:32)
[2020-02-25] MEDS ORDERED: VECURONIUM 10 MG VIAL IV ONE (07:32)
[2020-02-25] MEDS ORDERED: fentaNYL (PF) 50 MCG/ML 50 ML VIAL ONE (07:32)
[2020-02-25] MEDS ORDERED: PROPOFOL 10 MG/ML 20 ML VIAL IV ONE (07:32)
[2020-02-25] MEDS ORDERED: PROTAMINE SULFATE 10 MG/ML 5 ML VIAL IV ONE (07:32)
[2020-02-25] MEDS ORDERED: fentaNYL (PF) 50 MCG/ML 2 ML AMP ONE (07:32)
[2020-02-25] MEDS ORDERED: ALBUMIN HUMAN 5% (25gm) 500 ML VIAL IVPB ONE (07:32)
[2020-02-25] MEDS ORDERED: NITROGLYCERIN-D5W PMX 50 MG/250 ML BOTTLE IV ONE (07:32)
[2020-02-25] MEDS ORDERED: CALCIUM CHLORIDE 100 MG/ML 10 ML SYRINGE ONE (07:32)
[2020-02-25] MEDS ORDERED: MIDAZOLAM 2 MG/2 ML VIAL ONE (07:32)
[2020-02-25 08:19] LABS: ABG Base Excess 1.4 mmol/L; ABG Glucose Whole Blood 108 mg/dL (75-99); ABG HCO3 27 mmol/L (21-25); ABG Hematocrit 41 % (34.0-46.0); ABG Ionized Calcium 4.7 mg/dL (4.5-5.3); ABG Lactic Acid Whole Blood 1.8 mmol/L (0.5-1.6); ABG Oxygen Saturation 99.1 % (94-97); ABG PCO2 43 mmHg (35-45); ABG PO2 157 mmHg (83-108); ABG Potassium Whole Blood 3.8 mmol/L (3.4-4.5); ABG Sodium Whole Blood 142 mmol/L (135-146); ABG TCO2 28 mmol/L (19-24)
[2020-02-25] MEDS ORDERED: PAPAVERINE 360 MG in SODIUM CHLORIDE 0.9% 90 ML IV ONE (09:28)
[2020-02-25 09:31] LABS: ABG Base Excess 1.4 mmol/L; ABG Glucose Whole Blood 134 mg/dL (75-99); ABG HCO3 26 mmol/L (21-25); ABG Hematocrit 42 % (34.0-46.0); ABG Ionized Calcium 4.6 mg/dL (4.5-5.3); ABG Lactic Acid Whole Blood 1.6 mmol/L (0.5-1.6); ABG Oxygen Saturation 98.7 % (94-97); ABG PCO2 42 mmHg (35-45); ABG PH 7.41 (7.35-7.45); ABG PO2 129 mmHg (83-108); ABG Sodium Whole Blood 141 mmol/L (135-146); ABG TCO2 28 mmol/L (19-24)
[2020-02-25 09:56] LABS: ABG Base Excess 0.9 mmol/L; ABG Glucose Whole Blood 131 mg/dL (75-99); ABG HCO3 26 mmol/L (21-25); ABG Hematocrit 39 % (34.0-46.0); ABG Ionized Calcium 5.6 mg/dL (4.5-5.3); ABG Lactic Acid Whole Blood 1.3 mmol/L (0.5-1.6); ABG Oxygen Saturation 97.6 % (94-97); ABG PCO2 42 mmHg (35-45); ABG PO2 100 mmHg (83-108); ABG Potassium Whole Blood 3.8 mmol/L (3.4-4.5); ABG Sodium Whole Blood 141 mmol/L (135-146); ABG TCO2 27 mmol/L (19-24)
--- NOTE | 2020-02-25 10:08 | P.GSCN ---
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 He has a previous medical history of hypertension, ixm-wpbeylx-pstmizaak diabetes mellitus, GERD, several orthopedic surgeries, never smoker, and a significant family history of premature coronary artery disease with multiple family members diagnosed less than 60 years old. He presented to [facility] yesterday morning with complaints of substernal chest pain with radiation to his arms, jaw, and back associated with shortness of breath and diaphoresis. Chest x-ray was completed demonstrate no acute cardiac pulmonary process. Thoracic aorta CT was completed with no evide nce of aortic dissection. EKG demonstrated normal sinus rhythm without acute ischemic changes. First troponin was negative, however second was 0.1 and third was 9.6. The patient was ruled in for non-STEMI and admitted for evaluation and treatment with consultation placed to cardiology. Transthoracic echocardiogram was completed demonstrating low-normal left ventricular systolic function with E F 50-55%, mild mitral regurgitation and no other significant valvular pathology. He was recommended to undergo heart catheterization which was completed yesterday evening and which demonstrated proximal LAD lesion 50%, mid LAD with 80% stenosis, and distal LAD stenosis 50-60%, a subbranch of the OM1 with 90% stenosis, and right coronary occlusion distally with mild to moderate disease in the proximal to midportion. Dr. Wilson did place 2 drug-eluting stents to the RCA, one at the maximal site and one at the distal site. Due to his family history, and stenosis of the left-sided vessels consultations placed to cardiothoracic surgery for surgical revascularization recommendations. Review of Systems Review of systems was completed and was negative except as noted - Cardiovascular Reports as per HPI, Reports chest pain, Reports dyspnea on exertion, Reports shortness of breath Past Medical History Past Medical History: Coronary Artery Disease (CAD), Chest Pain / Angina, GERD/Reflux, Hearing Disorder / Deafness, Hyperlipidemia, Hypertension, Osteoarthritis (OA), Skin Disorder, Thyroid Disorder Additional Past Medical History / Comment(s): c/o shortness of breath w/ exercise, then CP. Skin is itchy History of Any Multi-Drug Resistant Organisms: None Reported Past Surgical History: Heart Catheterization With Stent, Hernia Repair, Orthopedic Surgery, Tonsillectomy Additional Past Surgical History / Comment(s): nasal polyp surgeries, hernia surgeries, recent cardiac cath. Right rotator cuff repair, right meniscus repair, 2 back surgeries Past Anesthesia/Blood Transfusion Reactions: No Reported Reaction, Motion Sickness Date of Last Stent Placement:: 08/2018 Past Psychological History: No Psychological Hx Reported Smoking Status: Never smoker Past Alcohol Use History: Rare Past Drug Use History: None Reported - Past Family History Mother Family Medical History: Cancer, Coronary Artery Disease (CAD) Brother(s) Family Medical History: Coronary Artery Disease (CAD), CVA/TIA, Myocardial Infarction ([place]) Father Family Medical History: COPD, Coronary Artery Disease (CAD) Sister(s) Family Medical History: Coronary Artery Disease (CAD) Medications and Allergies Home Medications Medication Instructions Recorded Confirmed Type Fluticasone Nasal [place] [Flonase 2 spr EA NOSTRIL HS 02/16/15 02/23/20 History Nasal [place]] Levothyroxine Sodium [Synthroid] 125 mcg PO DAILY 02/16/15 02/23/20 History Montelukast [Singulair] 10 mg PO HS 02/16/15 02/23/20 History Saw [place] 450 mg PO BID 02/16/15 02/23/20 History Aspirin [Adult Low Dose Aspirin EC] 81 mg PO DAILY 08/08/18 02/25/20 History Omeprazole 20 mg PO DAILY 08/08/18 02/25/20 History Metoprolol Tartrate 25 mg PO BID 08/11/18 02/23/20 History Atorvastatin [Lipitor] 80 mg PO HS #303 tab 08/12/18 02/23/20 Rx Nitroglycerin Sl Tabs [Nitrostat] 0.4 mg SUBLINGUAL Q5M PRN #25 tab 08/12/18 02/23/20 Rx Benazepril HCl [Lotensin] 20 mg PO HS 02/16/20 02/23/20 History Cholecalciferol [Vitamin D3 (25 2,000 unit PO DAILY 02/16/20 02/23/20 History Mcg = 1000 Iu)] amLODIPine [Norvasc] 5 mg PO HS 02/16/20 02/23/20 History Isosorbide Mononitrate ER [Imdur] 30 mg PO DAILY #30 tab.er.24h 02/18/20 02/23/20 Rx Triamcinolone Acetonide 1 applic TOPICAL DAILY PRN 02/23/20 02/23/20 History [Triamcinolone Acetonide 0.025%] Allergies Allergy/AdvReac Type Severity Reaction Status Date / Time Penicillins Allergy Rash/Hives Verified 02/23/20 10:19 Iodine and Iodide Containing AdvReac warm and Verified 02/23/20 10:19 Produc clammy Surgical - Exam Vital Signs Temp Pulse Resp BP Pulse Ox 97 F L 66 20 138/83 93 L 02/25/20 06:10 02/25/20 06:10 02/25/20 06:10 02/25/20 06:10 02/25/20 06:10 - General Complains of continued 2 out of 10 chest pain at rest well developed, well nourished, no distress - Eyes PERRL, normal ocular movement - ENT decreased hearing - Neck no masses, no bruits, trachea midline - Respiratory Lungs sounds are clear bilaterally. Respirations even, nonlabored. Currently on room air with oxygen saturation 96%. No chest wall deformities. No clubbing or cyanosis present. - Cardiovascular S1, S2 present. Slow but regular rate and rhythm, sinus bradycardia on tele metry with heart rate in the mid 50s. Palpable peripheral pulses bilaterally. No edema present. No calf pain or tenderness noted. - Abdomen Abdomen: soft, non tender, bowel sounds - Genitourinary Deferred - Rectum Deferred - Integumentary no rash, no growths - Neurologic normal coordination, normal sensation - Musculoskeletal normal gait, normal posture - Psychiatric oriented to time, oriented to person, oriented to place, speech is normal, memory intact Results - Labs Abnormal Lab Results - Last 24 Hours (Table) 02/23/20 02/25/20 Range/Units 10:12 06:35 POC Glucose (mg/dL) 114 H (75-99) mg/dL Crossmatch See Detail - Imaging Chest x-ray: report reviewed, image reviewed CT scan - chest: report reviewed, image reviewed EKG: image reviewed Additional studies: Heart catheterization films will be reviewed with Dr. Arias Assessment and Plan Assessment: 1. Triple-vessel coronary artery disease, non-STEMI this admission, status post 2 drug-eluting stents placed to the RCA 2. Hypertension 3. Cqi-qorhzoj-zguhbcssm diabetes mellitus 4. GERD 5. Never smoker 6. Significant family history of premature coronary artery disease Plan: The patient was seen and examined at the bedside on the cardiac stepdown unit. Chart/diagnostics were reviewed. The usual perioperative course of coronary artery bypass surgery was discussed in detail with the patient, risks and benefits were reviewed, the patient does consent to surgery if deemed necessary. He does express that if we feel surgery is necessary he would like the surgery to be completed here prior to his going back to [place]. Preoperative testing was initiated. The patient was loaded with Effient last night after his stents were placed. He does complain of continued chest pain although not anywhere near as bad as it was when he first came in. We recommend continuing aspirin, statin, beta bakari therapy. More recommendations to follow once Dr. Arias has had the afternoon to review the patient's heart catheterization films and make the patient. Thank you Dr. Wilson for this consult. Time with Patient: Greater than 30
[2020-02-25] MEDS ORDERED: ceFAZolin 1,000 MG in SODIUM CHLORIDE 0.9% 1,000 ML IRRIGATION ONE (10:13)
--- NOTE | 2020-02-25 10:54 | P.OP ---
Date of Procedure: 02/25/20 Preoperative Diagnosis: Ordinary artery disease Postoperative Diagnosis: Same Procedure(s) Performed: Off-pump coronary artery bypass grafting 1 with HERNDON to LAD Anesthesia: DOMINIQUE Surgeon: Theodore Arias [place] Brushing Machine Operator #1: Sky Mclaughlin [place] Brushing Machine Operator #2: Marla Barnes Estimated Blood Loss (ml): 100 IV fluids (ml): 2,000 Urine output (ml): 500 Pathology: none sent Condition: stable Disposition: ICU Indications for Procedure: 69-year-old male with previous stenting of the proximal LAD a year ago. The patient has had recurrent symptomatology. Catheterization demonstrated severe in-stent restenosis. Remaining coronary arteries were without severe disease. Revascularization of the LAD with the HERNDON was recommended an elective surgery was scheduled. Operative Findings: Internal mammary artery was a good conduit. LAD was a 2 mm soft vessel with excellent lumen. Ventricular function was good by LEONA. There was no significant valvular heart disease. Description of Procedure: The patient was brought to the operating room, placed supine on the operating table anesthetized and intubated. The anterior torso and lower extremities were sterilely prepped and draped. Midline sternotomy was performed. Left hemisternum was retracted upwards and the left internal mammary artery was harvested on a vascularized pedicle, left intact on its origin from the subclavian, and divided distally. Left pleural space was drained with a 32- [place] chest tube through separate stab incision and secured with 0 Ethibond suture. Standard sternal retractor was placed. Pericardium was opened in the midline of the heart exposed with pericardial sutures. The LAD target was identified. This was a 2 mm soft vessel in the mid anterior wall. The HERNDON was tunneled into the pericardial space. Patient was systemically heparinized. Suction stabilization was used during distal anastomosis. The LAD was stabilized and opened and blood flow control with a 1.5 mm flow through. Anastomosis of the end of the HERNDON to the side of the LAD was performed with running 8-0 Prolene suture. On completion anastomosis the flow through was removed effectively probing the proximal distal portion of the EMANI. Suture was tied with good resultant hemostasis. Inflow was open. The HERNDON was noted away to lay well with more than adequate length. The EMANI pedicle was tacked to the surrounding Epicardium with 6-0 silk sutures. Heparin was reversed with protamine. Good hemostasis was obtained throughout. Chest was irrigated with antibiotic solution. The mediastinum was drained with a 36-Fijian chest tube through separate stab incision and secured with an 0 Ethibond suture. Sternum was closed with 8 sternal wires. Fascia was closed with 0 Ethibond suture. Subcutaneous and subcuticular layers were closed with layers of Vicryl suture. Dry sterile dressings were applied.
[2020-02-25] MEDS ORDERED: ALBUMIN HUMAN 5% 250 ML in EMPTY BAG 1 BAG IVPB PRN (11:09)
[2020-02-25] MEDS ORDERED: CALCIUM GLUCONATE 2 GM in SODIUM CHLORIDE 0.9% 100 ML IVPB PRN (11:09)
[2020-02-25] MEDS ORDERED: BENZOCAINE/MENTHOL LOZENG 1 EACH LOZENGE MUCOUS MEM PRN (11:09)
[2020-02-25] MEDS ORDERED: IPRATROPIUM-ALBUTEROL 3 ML NEB INHALATION PRN (11:09)
[2020-02-25] MEDS ORDERED: Magnesium Replacement Protocol 1 EACH MISC MISCELLANE PRN (11:09)
[2020-02-25] MEDS ORDERED: AMIODARONE 360 MG in DEXTROSE 5% IN WATER 200 ML IV PRN ×2 (11:09)
[2020-02-25] MEDS ORDERED: METOCLOPRAMIDE 5 MG/ML 2 ML VIAL IVP PRN (11:09)
[2020-02-25] MEDS ORDERED: AMIODARONE 300 MG in DEXTROSE 5% IN WATER 250 ML IV PRN ×2 (11:09)
[2020-02-25] MEDS ORDERED: Potassium Replacement Protocol 1 EACH MISC MISCELLANE PRN (11:09)
[2020-02-25] MEDS ORDERED: Phosphorus Replacement Protoco 1 EACH MISC MISCELLANE PRN (11:09)
[2020-02-25] MEDS ORDERED: hydrALAZINE HCL 20 MG/ML 1 ML VIAL IVP PRN (11:09)
[2020-02-25] MEDS ORDERED: DEXTROSE 5% IN WATER 100 ML with AMIODARONE 150 MG IV PRN (11:09)
[2020-02-25] MEDS ORDERED: ONDANSETRON 4 MG/2 ML VIAL IVP PRN (11:09)
[2020-02-25] MEDS ORDERED: NITROGLYCERIN-D5W PMX 50 MG in DEXTROSE/WATER 1 250ML.BAG IV SCH (11:09)
[2020-02-25 11:41] LABS: Glucose,Whole Blood 126 mg/dL (75-99)
--- NOTE | 2020-02-25 11:41 | XR ---
EXAMINATION TYPE: XR chest 1V portable DATE OF EXAM: 02/25/2020 COMPARISON: 02/18/2020 INDICATION: Postop cardiac surgery TECHNIQUE: Single frontal view of the chest is obtained. FINDINGS: The heart size is normal. The pulmonary vasculature is normal. Minimal infiltrates in the left lower lobe. Left-sided chest tube is present. No pneumothorax is evid ent. Endotracheal tube tip is above the vasile. Nasogastric tube transverses the thorax. Mediastinal tube is present. [place] catheter tip is in the right main pulmonary artery region IMPRESSION: 1. Mild infiltrate left lower lobe. 2. Multiple lines and catheters discussed above
[2020-02-25 11:51] LABS: ABG Base Excess 1.9 mmol/L; ABG HCO3 27 mmol/L (21-25); ABG PCO2 47 mmHg (35-45); ABG PH 7.37 (7.35-7.45); ABG PO2 246 mmHg (83-108); ABG TCO2 29 mmol/L (19-24); Allen Test Performed? Yes
--- NOTE | 2020-02-25 11:57 | CONS ---
CONSULTATION DATE OF CONSULTATION: 02/25/20 I have seen, examined, and agree with the midlevel's findings. MMODL / IJN: [id number] / -01
[2020-02-25] MEDS: LACTATED RINGERS 1,000 ML IV SCH (11:59)
[2020-02-25] MEDS ORDERED: DEXMEDETOMIDINE/0.9% NACL(PMX) 400 MCG in EMPTY BAG 1 BAG IV SCH (12:00)
[2020-02-25] MEDS ORDERED: INSULIN REGULAR 100 UNIT in SODIUM CHLORIDE 0.9% 100 ML IV SCH (12:00)
[2020-02-25] MEDS: ACETAMINOPHEN IV (For NPO) 1,000 MG in EMPTY BAG 1 BAG IVPB SCH ×2 (12:00→17:01)
[2020-02-25] MEDS: CLEVIDIPINE BUTYRATE 25 MG in EMPTY BAG 1 BAG IV SCH ×3 (12:02→21:30)
[2020-02-25 12:10] LABS: Glucose,Whole Blood 114 mg/dL (75-99)
[2020-02-25 12:27] LABS: Ionized Calcium 5.4 mg/dL (4.5-5.3)
[2020-02-25 12:34] LABS: Basophils % (A) 0 %; Eosinophils # (A) 0.1 k/uL (0-0.7); Eosinophils % (A) 1 %; HCT 37.8 % (39.0-53.0); Lymphocytes % (A) 11 %; MCH 29.1 pg (25.0-35.0); MCV 88.1 fL (80.0-100.0); Mean Platelet Volume 6.9; Monocytes # (A) 0.4 k/uL (0-1.0); Monocytes % (A) 5 %; Neutrophils % (A) 82 %; Platelet Count 158 k/uL (150-450); RBC 4.29 m/uL (4.30-5.90); RDW 13.1 % (11.5-15.5); WBC 8.6 k/uL (3.8-10.6)
[2020-02-25 12:37] LABS: Partial Thromboplastin Time 25.9 sec (22.0-30.0); Prothrombin Time 10.7 sec (9.0-12.0)
[2020-02-25 12:38] LABS: ALT 17 U/L (4-49); AST 17 U/L (17-59); African American GFR (CKD) >90 (>60 ml/min/1.73 sqM); Albumin 3.2 g/dL (3.5-5.0); Alkaline Phosphatase 62 U/L (38-126); Anion Gap 3 mmol/L; Blood Urea Nitrogen 14 mg/dL (9-20); Carbon Dioxide 27 mmol/L (22-30); Chloride 108 mmol/L (98-107); Glucose 127 mg/dL (74-99); Magnesium 1.6 mg/dL (1.6-2.3); Non-African American GFR(CKD) >90 (>60 ml/min/1.73 sqM); Sodium 138 mmol/L (137-145); Total Bilirubin 0.8 mg/dL (0.2-1.3); Total Protein 5.1 g/dL (6.3-8.2)
[2020-02-25 12:48] LABS: HGB 12.5 gm/dL (13.0-17.5)
[2020-02-25 13:28] LABS: Glucose,Whole Blood 118 mg/dL (75-99)
[2020-02-25] MEDS: KETOROLAC 15 MG/ML 1 ML VIAL IVP SCH ×2 (13:29→17:14)
[2020-02-25 14:02] LABS: Basophils # (A) 0.1 k/uL (0-0.2); Basophils % (A) 1 %; Eosinophils # (A) 0.1 k/uL (0-0.7); Eosinophils % (A) 1 %; HCT 42.7 % (39.0-53.0); HGB 14.5 gm/dL (13.0-17.5); Lymphocytes # (A) 1.3 k/uL (1.0-4.8); Lymphocytes % (A) 10 %; MCH 29.9 pg (25.0-35.0); MCV 87.8 fL (80.0-100.0); Mean Platelet Volume 6.8; Monocytes # (A) 0.8 k/uL (0-1.0); Monocytes % (A) 6 %; Neutrophils # (A) 10.4 k/uL (1.3-7.7); Neutrophils % (A) 82 %; Platelet Count 184 k/uL (150-450); RBC 4.87 m/uL (4.30-5.90); RDW 12.9 % (11.5-15.5); WBC 12.7 k/uL (3.8-10.6)
[2020-02-25] MEDS ORDERED: SODIUM CHLORIDE 0.9% IRRIG 1,000 ML BTL IRRIGATION ONE (14:20)
[2020-02-25 14:24] LABS: Glucose,Whole Blood 146 mg/dL (75-99)
[2020-02-25 14:26] LABS: ABG Base Excess 1.6 mmol/L; ABG HCO3 27 mmol/L (21-25); ABG PCO2 44 mmHg (35-45); ABG PH 7.39 (7.35-7.45); ABG PO2 103 mmHg (83-108); ABG TCO2 28 mmol/L (19-24); Allen Test Performed? Yes
[2020-02-25] MEDS: IPRATROPIUM-ALBUTEROL 3 ML NEB INHALATION SCH ×4 (14:47→21:06)
[2020-02-25 15:11] LABS: Glucose,Whole Blood 146 mg/dL (75-99)
[2020-02-25] MEDS ORDERED: MUPIROCIN 2% OINT 22 GM TUBE NASAL ONE (15:30)
[2020-02-25 16:26] LABS: Glucose,Whole Blood 121 mg/dL (75-99)
--- NOTE | 2020-02-25 17:01 | P.CNPUL ---
History of Present Illness Consult date: 02/25/20 Requesting physician: Theodore Arias Reason for consult: other (Status post CABG, off pump coronary artery bypass surgery) Chief complaint: Coronary artery disease History of present illness: This is a 69-year-old white male with history of coronary artery disease, previous stenting of proximal LAD a year ago, patient had recurrent symptoms of angina, cardiac catheterization demonstrated severe in-stent restenosis. Revascularization of the LAD with HERNDON was performed today electively, patient was sent up to the ICU on mechanical ventilation, and I was asked to see him on consultation. Patient is on mechanical ventilation, assist control rate of 14, volume is 520 FiO2 is 100% and PEEP is 5. Postoperative chest x-ray showed mostly postoperative changes, adequate placement of lines and tubes, and minimal left basilar atelectasis. Patient is sedated, he is hemodynamically stable, not requiring any pressors, he is on propofol at 20 mcg/kg/m, and nitro drip. His cardiac output is 6.2 cardiac index is 2.9 CVP is 14 pulmonary artery pressure is 37/21. His baseline FEV1 is 3.1 L prior to surgery Review of Systems ROS unobtainable: due to endotracheal tube Past Medical History Past Medical History: Coronary Artery Disease (CAD), Chest Pain / Angina, GERD/Reflux, Hearing Disorder / Deafness, Hyperlipidemia, Hypertension, Osteoarthritis (OA), Skin Disorder, Thyroid Disorder Additional Past Medical History / Comment(s): c/o shortness of breath w/ exercise, then CP. Skin is itchy History of Any Multi-Drug Resistant Organisms: None Reported Past Surgical History: Heart Catheterization With Stent, Hernia Repair, Orthoped ic Surgery, Tonsillectomy Additional Past Surgical History / Comment(s): nasal polyp surgeries, hernia surgeries, recent cardiac cath. Right rotator cuff repair, right meniscus repair, 2 back surgeries Past Anesthesia/Blood Transfusion Reactions: No Reported Reaction, Motion Sickness Date of Last Stent Placement:: 08/2018 Past Psychological History: No Psychological Hx Reported Smoking Status: Never smoker Past Alcohol Use History: Rare Past Drug Use History: None Reported - Past Family History Mother Family Medical History: Cancer, Coronary Artery Disease (CAD) Brother(s) Family Medical History: Coronary Artery Disease (CAD), CVA/TIA, Myocardial Infarction ([place]) Father Family Medical History: COPD, Coronary Artery Disease (CAD) Sister(s) Family Medical History: Coronary Artery Disease (CAD) Medications and Allergies Home Medications Medication Instructions Recorded Confirmed Type Fluticasone Nasal [place] [Flonase 2 spr EA NOSTRIL HS 02/16/15 02/23/20 History Nasal [place]] Levothyroxine Sodium [Synthroid] 125 mcg PO DAILY 02/16/15 02/23/20 History Montelukast [Singulair] 10 mg PO HS 02/16/15 02/23/20 History Saw [place] 450 mg PO BID 02/16/15 02/23/20 History Aspirin [Adult Low Dose Aspirin EC] 81 mg PO DAILY 08/08/18 02/25/20 History Omeprazole 20 mg PO DAILY 08/08/18 02/25/20 History Metoprolol Tartrate 25 mg PO BID 08/11/18 02/23/20 History Atorvastatin [Lipitor] 80 mg PO HS #303 tab 08/12/18 02/23/20 Rx Nitroglycerin Sl Tabs [Nitrostat] 0.4 mg SUBLINGUAL Q5M PRN #25 tab 08/12/18 02/23/20 Rx Benazepril HCl [Lotensin] 20 mg PO HS 02/16/20 02/23/20 History Cholecalciferol [Vitamin D3 (25 2,000 unit PO DAILY 02/16/20 02/23/20 History Mcg = 1000 Iu)] amLODIPine [Norvasc] 5 mg PO HS 02/16/20 02/23/20 History Isosorbide Mononitrate ER [Imdur] 30 mg PO DAILY #30 tab.er.24h 02/18/20 02/23/20 Rx Triamcinolone Acetonide 1 applic TOPICAL DAILY PRN 02/23/20 02/23/20 History [Triamcinolone Acetonide 0.025%] Allergies Allergy/AdvReac Type Severity Reaction Status Date / Time Penicillins Allergy Rash/Hives Verified 02/23/20 10:19 Iodine and Iodide Containing AdvReac warm and Verified 02/23/20 10:19 Produc clammy Physical Exam Vitals: Vital Signs Temp Pulse Pulse Resp BP BP BP 02/25/20 16:00 37.0 F L 97 14 133/82 02/25/20 15:45 95 17 133/82 02/25/20 15:30 93 16 133/82 02/25/20 15:15 36.9 F L 90 17 133/82 02/25/20 15:09 89 02/25/20 15:00 87 21 133/82 02/25/20 14:45 85 24 133/82 02/25/20 14:30 88 25 H 133/82 02/25/20 14:15 81 9 L 133/82 02/25/20 14:00 86 8 L 133/82 02/25/20 13:45 87 12 133/82 02/25/20 13:30 87 13 133/82 02/25/20 13:15 86 14 133/82 02/25/20 13:00 86 13 133/82 02/25/20 12:45 87 14 02/25/20 12:30 76 16 02/25/20 12:10 70 14 02/25/20 12:00 66 14 02/25/20 11:50 64 14 02/25/20 11:40 63 14 02/25/20 11:30 58 L 14 02/25/20 11:20 60 14 02/25/20 11:17 57 L 14 02/25/20 06:10 97 F L 66 20 148/86 138/83 Pulse Ox 02/25/20 16:00 95 02/25/20 15:45 95 02/25/20 15:30 95 02/25/20 15:15 95 02/25/20 15:09 02/25/20 15:00 95 02/25/20 14:45 96 02/25/20 14:30 94 L 02/25/20 14:15 97 02/25/20 14:00 96 02/25/20 13:45 95 02/25/20 13:30 96 02/25/20 13:15 96 02/25/20 13:00 96 02/25/20 12:45 96 02/25/20 12:30 96 02/25/20 12:10 99 02/25/20 12:00 98 02/25/20 11:50 98 02/25/20 11:40 99 02/25/20 11:30 98 02/25/20 11:20 02/25/20 11:17 02/25/20 06:10 93 L Intake and Output 02/25/20 02/25/20 02/25/20 06:59 14:59 22:59 Intake Total 330.919 153.998 Output Total 1560 220 Balance -1229.081 -66.002 Intake: IV 304 150 ACETAMINOPHEN IV (For NPO 100 ) 1,000 mg In Empty Bag 1 bag @ 400 mls/hr IVPB Q6HR DOM Rx#:[id number] Lactated Ringers 1,000 ml 200 100 @ 50 mls/hr IV .Q20H DOM Rx#:[id number] ceFAZolin 2 gm In Sodium 50 Chloride 0.9% 50 ml @ 100 mls/hr IVPB Q8HR DOM Rx# :[id number] Intake, IV Titration 26.919 3.998 Amount Clevidipine Butyrate 25 26.633 mg In Empty Bag 1 bag @ 1 MG/HR 2 mls/hr IV .Q24H DOM Rx#:[id number] Insulin Regular 100 unit 0.286 3.998 In Sodium Chloride 0.9% 100 ml @ Per Protocol IV .Q0M DOM Rx#:[id number] Output: Chest Tube Drainage 210 60 Chest Tube Left Pleural/ 210 60 Mediastinal Urine 1050 160 Estimated Blood Loss 300 Other: Voiding Method Indwelling Catheter Indwelling Catheter Weight 95 kg ABP, PAP, CO, CI - Last 8 Hours Arterial Blood Pressure 134/65 Arterial Blood Pressure 130/62 Arterial Blood Pressure 124/61 Arterial Blood Pressure 124/61 Arterial Blood Pressure 124/62 Arterial Blood Pressure 125/64 Arterial Blood Pressure 120/59 Arterial Blood Pressure 116/59 Arterial Blood Pressure 129/62 Arterial Blood Pressure 127/60 Arterial Blood Pressure 129/61 Arterial Blood Pressure 146/70 Arterial Blood Pressure 145/73 Arterial Blood Pressure 139/73 Arterial Blood Pressure 123/65 Arterial Blood Pressure 127/69 Arterial Blood Pressure 138/75 Arterial Blood Pressure 126/45 Pulmonary Artery Pressure 21/6 Pulmonary Artery Pressure 22/11 Pulmonary Artery Pressure 23/9 Pulmonary Artery Pressure 23/8 Pulmonary Artery Pressure 25/13 Pulmonary Artery Pressure 26/15 Pulmonary Artery Pressure 40/25 Pulmonary Artery Pressure 26/12 Pulmonary Artery Pressure 28/14 Pulmonary Artery Pressure 32/13 Pulmonary Artery Pressure 32/16 Pulmonary Artery Pressure 32/17 Pulmonary Artery Pressure 32/15 Pulmonary Artery Pressure 39/20 Pulmonary Artery Pressure 40/21 Pulmonary Artery Pressure 37/21 Pulmonary Artery Pressure 33/18 Pulmonary Artery Pressure 33/18 Pulmonary Artery Pressure 36/20 Pulmonary Artery Pressure 39/22 Pulmonary Artery Pressure 32/18 Cardiac Output 8.6 Cardiac Output 8.6 Cardiac Output 8.6 Cardiac Output 8.6 Cardiac Output 8.1 Cardiac Output 8.1 Cardiac Output 8.1 Cardiac Output 8.1 Cardiac Output 8.1 Cardiac Output 8.1 Cardiac Output 8.1 Cardiac Output 8.1 Cardiac Output 8.1 Cardiac Output 7.9 Cardiac Output 7.9 Cardiac Output 6.2 Cardiac Output 6.2 Cardiac Output 6.2 Cardiac Output 6.2 Cardiac Output 6.2 Cardiac Index 4 Cardiac Index 4 Cardiac Index 4 Cardiac Index 4 Cardiac Index 3.8 Cardiac Index 3.8 Cardiac Index 3.8 Cardiac Index 3.8 Cardiac Index 3.8 Cardiac Index 3.8 Cardiac Index 3.8 Cardiac Index 3.8 Cardiac Index 3.8 Cardiac Index 3.7 Cardiac Index 3.7 Cardiac Index 2.9 Cardiac Index 2.9 Cardiac Index 2.9 Cardiac Index 2.9 Cardiac Index 2.9 Physical Exam: Revealed 69-year-old white male, sedated, on mechanical ventilation, in no distress. Head: Atraumatic, normocephalic, endotracheal tube and orogastric tube are intact. HEENT:[Neck is supple.] [No neck masses.] [No thyromegaly.] [No JVD.] Chest: [Clear throughout, no crackles, no rhonchi, no wheezes.] Cardiac Exam: [Normal S1 and S2, no S3 gallop, no murmur.] Abdomen: [Soft, nontender, no megaly, no rebound, no guarding, normal bowel sounds.] Extremities: [No clubbing, no edema, no cyanosis.] Neurological Exam: Cannot assess, patient is sedated on propofol. Psychiatric: Could not assess. Results - Laboratory Findings CBC and BMP: 02/25/20 13:45 02/25/20 11:30 ABG ABG pH 7.39 (7.35-7.45) 02/25/20 14:25 ABG pCO2 44 mmHg (35-45) 02/25/20 14:25 ABG pO2 103 mmHg (83-108) 02/25/20 14:25 ABG O2 Saturation 97.0 % (94-97) 02/25/20 14:25 PT/INR, D-dimer PT 10.7 sec (9.0-12.0) 02/25/20 11:30 INR 1.0 (<1.2) 02/25/20 11:30 Abnormal lab findings: Abnormal Labs 02/23/20 02/25/20 02/25/20 10:12 06:35 08:19 WBC RBC Hgb Hct Neutrophils # ABG pCO2 ABG pO2 157 H ABG HCO3 27 H ABG Total CO2 28 H ABG O2 Saturation 99.1 H ABG Ionized Calcium ABG Glucose 108 H ABG Lactic Acid 1.8 H Hemoglobin Chloride Glucose POC Glucose (mg/dL) 114 H Ionized Calcium [place] Total Protein Albumin Arterial Blood Glucose 108 H Crossmatch See Detail 02/25/20 02/25/20 02/25/20 09:31 09:56 11:20 WBC RBC Hgb Hct Neutrophils # ABG pCO2 ABG pO2 129 H ABG HCO3 26 H 26 H ABG Total CO2 28 H 27 H ABG O2 Saturation 98.7 H 97.6 H ABG Ionized Calcium 5.6 H ABG Glucose 134 H 131 H ABG Lactic Acid Hemoglobin 12.8 L Chloride Glucose POC Glucose (mg/dL) 126 H Ionized Calcium [place] Total Protein Albumin Arterial Blood Glucose 134 H 131 H Crossmatch 02/25/20 02/25/20 02/25/20 11:30 11:30 11:49 WBC RBC 4.29 L Hgb 12.5 L D Hct 37.8 L Neutrophils # ABG pCO2 47 H ABG pO2 246 H ABG HCO3 27 H ABG Total CO2 29 H ABG O2 Saturation 100.0 H ABG Ionized Calcium ABG Glucose ABG Lactic Acid Hemoglobin Chloride 108 H Glucose 127 H POC Glucose (mg/dL) Ionized Calcium [place] 5.4 H Total Protein 5.1 L Albumin 3.2 L Arterial Blood Glucose Crossmatch 02/25/20 02/25/20 02/25/20 12:08 13:08 13:45 WBC 12.7 H RBC Hgb Hct Neutrophils # 10.4 H ABG pCO2 ABG pO2 ABG HCO3 ABG Total CO2 ABG O2 Saturation ABG Ionized Calcium ABG Glucose ABG Lactic Acid Hemoglobin Chloride Glucose POC Glucose (mg/dL) 114 H 118 H Ionized Calcium [place] Total Protein Albumin Arterial Blood Glucose Crossmatch 02/25/20 02/25/20 02/25/20 13:49 14:25 15:10 WBC RBC Hgb Hct Neutrophils # ABG pCO2 ABG pO2 ABG HCO3 27 H ABG Total CO2 28 H ABG O2 Saturation ABG Ionized Calcium ABG Glucose ABG Lactic Acid Hemoglobin Chloride Glucose POC Glucose (mg/dL) 146 H 146 H Ionized Calcium [place] Total Protein Albumin Arterial Blood Glucose Crossmatch 02/25/20 16:07 WBC RBC Hgb Hct Neutrophils # ABG pCO2 ABG pO2 ABG HCO3 ABG Total CO2 ABG O2 Saturation ABG Ionized Calcium ABG Glucose ABG Lactic Acid Hemoglobin Chloride Glucose POC Glucose (mg/dL) 121 H Ionized Calcium [place] Total Protein Albumin Arterial Blood Glucose Crossmatch - Diagnostic Findings Chest x-ray: image reviewed (As noted in HPI.) Assessment and Plan Assessment: Impression: Status post CABG, HERNDON to LAD, off pump. Postoperative day #0. Patient is on mechanical ventilation. Benign essential hypertension. [id number]-[id number] diabetes. GERD without esophagitis. Significant family history for premature coronary artery disease. Recommendation: Continue ventilatory support for now. Increase assist control rate of 16. Consider weaning and possibly extubation in the next few hours. Reviewed his previous PFT basically unremarkable. Expect to wean and extubate in the next couple of hours. We'll continue to follow Time with Patient: Greater than 30
[2020-02-25 17:07] LABS: Glucose,Whole Blood 139 mg/dL (75-99)
[2020-02-25 17:38] LABS: Basophils % (A) 0 %; Eosinophils % (A) 0 %; HCT 42.4 % (39.0-53.0); HGB 14.7 gm/dL (13.0-17.5); Lymphocytes # (A) 0.4 k/uL (1.0-4.8); Lymphocytes % (A) 3 %; MCH 30.2 pg (25.0-35.0); MCHC 34.6 g/dL (31.0-37.0); MCV 87.4 fL (80.0-100.0); Mean Platelet Volume 6.7; Monocytes # (A) 0.9 k/uL (0-1.0); Monocytes % (A) 6 %; Neutrophils # (A) 12.9 k/uL (1.3-7.7); Neutrophils % (A) 90 %; Platelet Count 170 k/uL (150-450); RBC 4.85 m/uL (4.30-5.90); RDW 12.7 % (11.5-15.5); WBC 14.2 k/uL (3.8-10.6)
[2020-02-25 18:12] LABS: Glucose,Whole Blood 127 mg/dL (75-99)
[2020-02-25] MEDS: HEPARIN SODIUM,PORCINE 5,000 UNIT/ML 1 ML VIAL SQ SCH (19:00)
[2020-02-25 19:11] LABS: Glucose,Whole Blood 104 mg/dL (75-99)
[2020-02-25 20:04] LABS: Glucose,Whole Blood 102 mg/dL (75-99)
[2020-02-25 21:11] LABS: Glucose,Whole Blood 133 mg/dL (75-99)
--- NOTE | 2020-02-25 21:17 | P.CONS ---
History of Present Illness - Reason for Consult Consult date: 02/25/20 Medical management. - Chief Complaint Status post coronary artery bypass graft - History of Present Illness Patient is a 69-year-old male with a known history of coronary artery disease status post stent placement, hypertension, hyperlipidemia, osteoarthritis, GERD, deafness/hearing disorder, no history of prior smoking and history of hernia surgeries and right knee meniscus repair and 2 back surgeries who was admitted recently with recurrent chest pains. Patient underwent cardiac catheterization on 02/18/2020 showed proximal LAD lesion 50%, mid LAD 80% stenosis and distal LAD stenosis 50 to 60% and several branch of OM1 with 90% stenosis and a right coronary occlusion distally with mild to moderate disease in the proximal to midportion. Patient had stent placement and due to multivessel coronary disease patient was seen by CT surgery and recommended revascularization. Patient had preoperative work-up done and was admitted to the hospital for coronary artery bypass graft. Patient underwent three-vessel coronary artery bypass graft today. Patient was intubated preoperatively and was transferred to MICU. Currently patient is awake and alert and follows simple commands. Still intubated and is planning for extubation today. ABG showed pH 7.37, PCO2 47, PO2 246 Laboratory data reviewed. Blood sugar is 127, BUN 14 and creatinine 0.78 albumin 3.2 Review of Systems Complete review of systems could not be obtained from the patient except as per HPI. Past Medical History Past Medical History: Coronary Artery Disease (CAD), Chest Pain / Angina, GERD/Reflux, Hearing Disorder / Deafness, Hyperlipidemia, Hypertension, Osteoarthritis (OA), Skin Disorder, Thyroid Disorder Additional Past Medical History / Comment(s): c/o shortness of breath w/ exercise, then CP. Skin is itchy History of Any Multi-Drug Resistant Organisms: None Reported Past Surgical History: Heart Catheterization With Stent, Hernia Repair, Orthopedic Surgery, Tonsillectomy Additional Past Surgical History / Comment(s): nasal polyp surgeries, hernia surgeries, recent cardiac cath. Right rotator cuff repair, right meniscus repair, 2 back surgeries Past Anesthesia/Blood Transfusion Reactions: No Reported Reaction, Motion Sickness Date of Last Stent Placement:: 08/2018 Past Psychological History: No Psychological Hx Reported Smoking Status: Never smoker Past Alcohol Use History: Rare Past Drug Use History: None Reported - Past Family History Mother Family Medical History: Cancer, Coronary Artery Disease (CAD) Brother(s) Family Medical History: Coronary Artery Disease (CAD), CVA/TIA, Myocardial Infarction ([place]) Father Family Medical History: COPD, Coronary Artery Disease (CAD) Sister(s) Family Medical History: Coronary Artery Disease (CAD) Medications and Allergies Home Medications Medication Instructions Recorded Confirmed Type Fluticasone Nasal Braxton [Flonase 2 spr EA NOSTRIL HS 02/16/15 02/23/20 History Nasal Braxton] Levothyroxine Sodium [Synthroid] 125 mcg PO DAILY 02/16/15 02/23/20 History Montelukast [Singulair] 10 mg PO HS 02/16/15 02/23/20 History Saw Moore 450 mg PO BID 02/16/15 02/23/20 History Aspirin [Adult Low Dose Aspirin EC] 81 mg PO DAILY 08/08/18 02/25/20 History Omeprazole 20 mg PO DAILY 08/08/18 02/25/20 History Metoprolol Tartrate 25 mg PO BID 08/11/18 02/23/20 History Atorvastatin [Lipitor] 80 mg PO HS #303 tab 08/12/18 02/23/20 Rx Nitroglycerin Sl Tabs [Nitrostat] 0.4 mg SUBLINGUAL Q5M PRN #25 tab 08/12/18 02/23/20 Rx Benazepril HCl [Lotensin] 20 mg PO HS 02/16/20 02/23/20 History Cholecalciferol [Vitamin D3 (25 2,000 unit PO DAILY 02/16/20 02/23/20 History Mcg = 1000 Iu)] amLODIPine [Norvasc] 5 mg PO HS 02/16/20 02/23/20 History Isosorbide Mononitrate ER [Imdur] 30 mg PO DAILY #30 tab.er.24h 02/18/20 02/23/20 Rx Triamcinolone Acetonide 1 applic TOPICAL DAILY PRN 02/23/20 02/23/20 History [Triamcinolone Acetonide 0.025%] Allergies Allergy/AdvReac Type Severity Reaction Status Date / Time Penicillins Allergy Rash/Hives Verified 02/23/20 10:19 Iodine and Iodide Containing AdvReac warm and Verified 02/23/20 10:19 Produc clammy Physical Exam Vitals: Vital Signs Temp Pulse Pulse Resp BP BP Pulse Ox 02/25/20 12:10 70 14 99 02/25/20 12:00 66 14 98 02/25/20 11:50 64 14 98 02/25/20 11:40 63 14 99 02/25/20 11:30 58 L 14 98 02/25/20 11:20 60 14 02/25/20 11:17 57 L 14 02/25/20 06:10 97 F L 66 20 148/86 138/83 93 L Intake and Output 02/24/20 02/25/20 02/25/20 22:59 06:59 14:59 Intake Total 204.833 Output Total 865 Balance -660.167 Intake: IV 204 ACETAMINOPHEN IV (For NPO 100 ) 1,000 mg In Empty Bag 1 bag @ 400 mls/hr IVPB Q6HR DOM Rx#:[id number] Lactated Ringers 1,000 ml 100 @ 50 mls/hr IV .Q20H DOM Rx#:[id number] Intake, IV Titration 0.833 Amount Clevidipine Butyrate 25 0.833 mg In Empty Bag 1 bag @ 1 MG/HR 2 mls/hr IV .Q24H DOM Rx#:[id number] Output: Chest Tube Drainage 140 Chest Tube Left Pleural/ 140 Mediastinal Urine 425 Estimated Blood Loss 300 Other: Weight 95 kg ABP, PAP, CO, CI - Last 8 Hours Arterial Blood Pressure 139/73 Arterial Blood Pressure 123/65 Arterial Blood Pressure 127/69 Arterial Blood Pressure 138/75 Arterial Blood Pressure 126/45 Pulmonary Artery Pressure 37/21 Pulmonary Artery Pressure 33/18 Pulmonary Artery Pressure 33/18 Pulmonary Artery Pressure 36/20 Pulmonary Artery Pressure 39/22 Pulmonary Artery Pressure 32/18 Cardiac Output 6.2 Cardiac Output 6.2 Cardiac Output 6.2 Cardiac Output 6.2 Cardiac Output 6.2 Cardiac Index 2.9 Cardiac Index 2.9 Cardiac Index 2.9 Cardiac Index 2.9 Cardiac Index 2.9 PHYSICAL EXAMINATION: Patient is lying in the bed comfortably, no acute distress, awake alert and Follows simple commands. On mechanical ventilator currently.. HEENT: Normocephalic. Neck is supple. Pupils reactive. Nostrils clear. Oral cavity is moist. Ears reveal no drainage. Neck reveals no JVD, carotid bruits, or thyromegaly. CHEST EXAMINATION: Trachea is central. Symmetrical expansion.Bibasilar diminished air entry. No wheezing. Lung callahan clear to auscultation and percussion. CARDIAC: Normal S1, S2 with no gallops. No murmurs ABDOMEN: Soft. Bowel sounds normal. No organomegaly. No abdominal bruits. Extremities: reveal no edema. No clubbing or cyanosis Neurologically awake, alert, oriented x3 with well-coordinated movements. No focal deficits noted Skin: No rash or skin lesions. Psychiatric: Coperative. Musculoskeletal: No joint swelling or deformity. Normal range of motion. Results CBC & Chem 7: 02/25/20 17:00 02/25/20 11:30 Labs: Abnormal Lab Results - Last 24 Hours (Table) 02/23/20 02/25/20 02/25/20 Range/Units 10:12 06:35 08:19 ABG pCO2 (35-45) mmHg ABG pO2 157 H (83-108) mmHg ABG HCO3 27 H (21-25) mmol/L ABG Total CO2 28 H (19-24) mmol/L ABG O2 Saturation 99.1 H (94-97) % ABG Ionized Calcium (4.5-5.3) mg/dL ABG Glucose 108 H (75-99) mg/dL ABG Lactic Acid 1.8 H (0.5-1.6) mmol/L Hemoglobin (13.0-17.5) gm/dL POC Glucose (mg/dL) 114 H (75-99) mg/dL Ionized Calcium [place] (4.5-5.3) mg/dL Arterial Blood Glucose 108 H (75-99) mg/dL Crossmatch See Detail 02/25/20 02/25/20 02/25/20 Range/Units 09:31 09:56 11:20 ABG pCO2 (35-45) mmHg ABG pO2 129 H (83-108) mmHg ABG HCO3 26 H 26 H (21-25) mmol/L ABG Total CO2 28 H 27 H (19-24) mmol/L ABG O2 Saturation 98.7 H 97.6 H (94-97) % ABG Ionized Calcium 5.6 H (4.5-5.3) mg/dL ABG Glucose 134 H 131 H (75-99) mg/dL ABG Lactic Acid (0.5-1.6) mmol/L Hemoglobin 12.8 L (13.0-17.5) gm/dL POC Glucose (mg/dL) 126 H (75-99) mg/dL Ionized Calcium [place] (4.5-5.3) mg/dL Arterial Blood Glucose 134 H 131 H (75-99) mg/dL Crossmatch 02/25/20 02/25/20 02/25/20 Range/Units 11:30 11:49 12:08 ABG pCO2 47 H (35-45) mmHg ABG pO2 246 H (83-108) mmHg ABG HCO3 27 H (21-25) mmol/L ABG Total CO2 29 H (19-24) mmol/L ABG O2 Saturation 100.0 H (94-97) % ABG Ionized Calcium (4.5-5.3) mg/dL ABG Glucose (75-99) mg/dL ABG Lactic Acid (0.5-1.6) mmol/L Hemoglobin (13.0-17.5) gm/dL POC Glucose (mg/dL) 114 H (75-99) mg/dL Ionized Calcium [place] 5.4 H (4.5-5.3) mg/dL Arterial Blood Glucose (75-99) mg/dL Crossmatch Assessment and Plan Assessment: Status post triple-vessel coronary artery bypass graft. Postoperative day 0.. Currently on mechanical ventilator expected from surgery Triple-vessel coronary disease with recent non-ST elevated [place] and stent placement Hypertension Diabetes type 2 [id number] Family history of coronary artery disease History of hernia surgery and back surgeries and meniscal repair surgeries. No history of prior smoking DVT prophylaxis Plan: Patient will be continued on telemetry monitoring. On mechanical ventilator. Currently on insulin drip for blood sugar control. Planning for extubation today. Patient will be continued aspirin, statins. Continue with current management and further recommendations based on the clinical course. Time with Patient: Greater than 30
[2020-02-25] MEDS: METOPROLOL TARTRATE 25 MG TAB PO SCH (21:26)
[2020-02-25] MEDS: HYDROcodone/APAP 5-325MG 1 EACH TAB PO PRN (21:28)
[2020-02-25 22:10] LABS: Glucose,Whole Blood 131 mg/dL (75-99)
[2020-02-25 23:03] LABS: Glucose,Whole Blood 130 mg/dL (75-99)
[2020-02-26 00:09] LABS: Glucose,Whole Blood 117 mg/dL (75-99)
[2020-02-26 01:08] LABS: Glucose,Whole Blood 119 mg/dL (75-99)
[2020-02-26 02:04] LABS: Glucose,Whole Blood 115 mg/dL (75-99)
[2020-02-26 03:05] LABS: Glucose,Whole Blood 108 mg/dL (75-99)
[2020-02-26 04:19] LABS: Glucose,Whole Blood 122 mg/dL (75-99)
[2020-02-26] MEDS: HYDROcodone/APAP 5-325MG 1 EACH TAB PO PRN ×5 (04:21→20:55)
[2020-02-26 04:28] LABS: Basophils % (A) 1 %; Eosinophils # (A) 0.1 k/uL (0-0.7); Eosinophils % (A) 1 %; HCT 40.3 % (39.0-53.0); HGB 13.8 gm/dL (13.0-17.5); Lymphocytes # (A) 0.7 k/uL (1.0-4.8); Lymphocytes % (A) 8 %; MCH 29.9 pg (25.0-35.0); MCHC 34.3 g/dL (31.0-37.0); MCV 87.1 fL (80.0-100.0); Mean Platelet Volume 7.9; Monocytes # (A) 0.6 k/uL (0-1.0); Monocytes % (A) 7 %; Neutrophils # (A) 7.3 k/uL (1.3-7.7); Neutrophils % (A) 83 %; Platelet Count 154 k/uL (150-450); RBC 4.63 m/uL (4.30-5.90); RDW 12.7 % (11.5-15.5); WBC 8.9 k/uL (3.8-10.6)
[2020-02-26 04:30] LABS: Ionized Calcium 4.7 mg/dL (4.5-5.3)
[2020-02-26 04:39] LABS: ALT 16 U/L (4-49); AST 22 U/L (17-59); African American GFR (CKD) >90 (>60 ml/min/1.73 sqM); Albumin 3.2 g/dL (3.5-5.0); Alkaline Phosphatase 66 U/L (38-126); Anion Gap 3 mmol/L; Blood Urea Nitrogen 14 mg/dL (9-20); Calcium 8.3 mg/dL (8.4-10.2); Carbon Dioxide 28 mmol/L (22-30); Chloride 103 mmol/L (98-107); Glucose 124 mg/dL (74-99); Magnesium 1.5 mg/dL (1.6-2.3); Non-African American GFR(CKD) >90 (>60 ml/min/1.73 sqM); Potassium 3.7 mmol/L (3.5-5.1); Sodium 134 mmol/L (137-145); Total Protein 5.2 g/dL (6.3-8.2)
[2020-02-26] MEDS ORDERED: POTASSIUM CHLORIDE ER 20 MEQ TAB.ER PO SCH (05:00)
[2020-02-26] MEDS: KETOROLAC 15 MG/ML 1 ML VIAL IVP SCH ×4 (05:09→18:20)
[2020-02-26] MEDS: HEPARIN SODIUM,PORCINE 5,000 UNIT/ML 1 ML VIAL SQ SCH ×3 (05:10→20:52)
[2020-02-26 05:18] LABS: Glucose,Whole Blood 123 mg/dL (75-99)
[2020-02-26] MEDS: MAGNESIUM SULFATE-D5W PMX 1 GM in DEXTROSE/WATER 1 100ML.BAG IVPB SCH ×2 (06:59→08:44)
[2020-02-26 07:06] LABS: Glucose,Whole Blood 129 mg/dL (75-99)
--- NOTE | 2020-02-26 07:53 | XR ---
EXAMINATION TYPE: XR chest 1V portable DATE OF EXAM: 02/26/2020 COMPARISON: 02/25/2020 HISTORY: SOB, Follow Up FINDINGS: Indwelling tubes and catheters are unchanged. Patchy perihilar infiltrate left lower lobe and left perihilar region persists. Stable appearance of the cardio-mediastinal structures at this time. IMPRESSION: 1. Stable portable chest. Clinical correlation and follow up until resolution is recommended.
--- NOTE | 2020-02-26 08:20 | P.PN ---
Subjective Progress Note Date: 02/26/20 Principal diagnosis: Coronary artery disease. Previous medical history of stenting to the LAD in August 2018, hypertension, hyperlipidemia, hypothyroidism, osteoarthritis, remote history of tobacco use, and family history of premature coronary artery disease POD #1 off-pump coronary artery bypass grafting 1 with left internal mammary artery to the left anterior descending artery The patient's currently sitting up in a recliner in the intensive care unit in no acute distress. The patient was successfully extubated yesterday at 14:50. He does complain of post surgical type pain which is controlled on current medication regimen, denies shortness of breath. No events noted overnight. Mediastinal/left pleural chest tube, right internal jugular [place]/Cordis, right radial arterial line all present. Objective - Vital Signs Vital signs: Vital Signs Temp 37.0 F L 02/25/20 16:00 Pulse 66 02/26/20 07:00 Resp 27 H 02/26/20 07:00 BP 133/82 02/25/20 20:00 Pulse Ox 96 02/26/20 07:00 Intake & Output 02/25/20 02/26/20 02/26/20 18:59 06:59 18:59 Intake Total 356.260 3915.225 159 Output Total 2060 1275 30 Balance -1475.083 -136.775 129 Weight 97.6 kg Intake: IV 554 1073 159 ACETAMINOPHEN IV (For NPO 100 ) 1,000 mg In Empty Bag 1 bag @ 400 mls/hr IVPB Q6HR DOM Rx#:[id number] Albumin Human 5% 250 ml 250 In Empty Bag 1 bag @ 250 mls/hr IVPB Q1HR PRN Rx#: [id number] CO/CI 60 Lactated Ringers 1,000 ml 400 600 50 @ 20 mls/hr IV .Q24H DOM Rx#:[id number] Magnesium Sulfate-D5w Pmx 100 1 gm In Dextrose/Water 1 100ml.bag @ 100 mls/hr IVPB Q1H DOM Rx#: [id number] Pressure bags 63 9 ceFAZolin 2 gm In Sodium 50 100 Chloride 0.9% 50 ml @ 100 mls/hr IVPB Q8HR DOM Rx# :[id number] Intake, IV Titration 30.917 65.225 0 Amount Clevidipine Butyrate 25 26.633 57.667 mg In Empty Bag 1 bag @ 1 MG/HR 2 mls/hr IV .Q24H DOM Rx#:[id number] Insulin Regular 100 unit 4.284 7.558 0 In Sodium Chloride 0.9% 100 ml @ Per Protocol IV .Q0M DOM Rx#:[id number] Output: Chest Tube Drainage 300 250 Chest Tube Left Pleural/ 300 250 Mediastinal Urine 1460 1025 30 Estimated Blood Loss 300 Other: Voiding Method Indwelling Catheter Indwelling Catheter # Voids 1 ABP, PAP, CO, CI - Last Documented Arterial Blood Pressure 128/67 Pulmonary Artery Pressure 27/11 Cardiac Output 12.8 Cardiac Index 6 - Constitutional General appearance: Present: cooperative, no acute distress - Respiratory Details: Lungs sounds diminished bilaterally. Respirations even, nonlabored. Currently on 4 L nasal cannula with oxygen saturation 93%. Only able to achieve 500 mL on his incentive spirometry. Weak cough. Mediastinal/left pleural chest tube present, connected to continuous wall suction, 160 mL serosanguineous drainage overnight, 550 mL since surgery, no air leak present. - Cardiovascular Details: S1, S2 present. Regular rate and rhythm, sinus rhythm on telemetry. Sternum stable. Palpable peripheral pulses bilaterally. No edema present. No calf pain or tenderness noted. Right internal jugular [place]/Cordis, right radial arterial line present. Last CO/CI 12.8/6.0 on no inotropes or pressors. Heart hugger in place with patient demonstrate appropriate use. Antiembolism stockings, SCDs present. - Gastrointestinal Gastrointestinal Comment(s): Abdomen soft, nontender, nondistended. Hypoactive bowel sounds present 4 quadrants. Tolerating minimal clear liquids. Denies flatus - Genitourinary Genitourinary Comment(s): Lewis present draining clear, yellow urine. Output 70-275 mL/h overnight, down to 25 mL per hour this morning. - Integumentary Integumentary Comment(s): Skin is warm and dry with evidence of good perfusion. Anterior chest incision well approximated and covered with dry intact dressing. - Neurologic Neurologic: Present: CNII-XII intact - Musculoskeletal Musculoskeletal: Present: strength equal bilaterally - Psychiatric Psychiatric: Present: A&O x's 3, appropriate affect, intact judgment & insight - Allied health notes Allied health notes reviewed: nursing - Labs CBC & Chem 7: 02/26/20 04:15 02/26/20 04:15 Labs: Abnormal Lab Results - Last 24 Hours (Table) 02/23/20 02/25/20 02/25/20 Range/Units 10:12 08:19 09:31 WBC (3.8-10.6) k/uL RBC (4.30-5.90) m/uL Hgb (13.0-17.5) gm/dL Hct (39.0-53.0) % Neutrophils # (1.3-7.7) k/uL Lymphocytes # (1.0-4.8) k/uL ABG pCO2 (35-45) mmHg ABG pO2 157 H 129 H (83-108) mmHg ABG HCO3 27 H 26 H (21-25) mmol/L ABG Total CO2 28 H 28 H (19-24) mmol/L ABG O2 Saturation 99.1 H 98.7 H (94-97) % ABG Ionized Calcium (4.5-5.3) mg/dL ABG Glucose 108 H 134 H (75-99) mg/dL ABG Lactic Acid 1.8 H (0.5-1.6) mmol/L Hemoglobin (13.0-17.5) gm/dL Sodium (137-145) mmol/L Chloride (98-107) mmol/L Glucose (74-99) mg/dL POC Glucose (mg/dL) (75-99) mg/dL Calcium (8.4-10.2) mg/dL Ionized Calcium [place] (4.5-5.3) mg/dL Magnesium (1.6-2.3) mg/dL Total Protein (6.3-8.2) g/dL Albumin (3.5-5.0) g/dL Arterial Blood Glucose 108 H 134 H (75-99) mg/dL Crossmatch See Detail 02/25/20 02/25/20 02/25/20 Range/Units 09:56 11:20 11:30 WBC (3.8-10.6) k/uL RBC 4.29 L (4.30-5.90) m/uL Hgb 12.5 L D (13.0-17.5) gm/dL Hct 37.8 L (39.0-53.0) % Neutrophils # (1.3-7.7) k/uL Lymphocytes # (1.0-4.8) k/uL ABG pCO2 (35-45) mmHg ABG pO2 (83-108) mmHg ABG HCO3 26 H (21-25) mmol/L ABG Total CO2 27 H (19-24) mmol/L ABG O2 Saturation 97.6 H (94-97) % ABG Ionized Calcium 5.6 H (4.5-5.3) mg/dL ABG Glucose 131 H (75-99) mg/dL ABG Lactic Acid (0.5-1.6) mmol/L Hemoglobin 12.8 L (13.0-17.5) gm/dL Sodium (137-145) mmol/L Chloride (98-107) mmol/L Glucose (74-99) mg/dL POC Glucose (mg/dL) 126 H (75-99) mg/dL Calcium (8.4-10.2) mg/dL Ionized Calcium [place] (4.5-5.3) mg/dL Magnesium (1.6-2.3) mg/dL Total Protein (6.3-8.2) g/dL Albumin (3.5-5.0) g/dL Arterial Blood Glucose 131 H (75-99) mg/dL Crossmatch 02/25/20 02/25/20 02/25/20 Range/Units 11:30 11:49 12:08 WBC (3.8-10.6) k/uL RBC (4.30-5.90) m/uL Hgb (13.0-17.5) gm/dL Hct (39.0-53.0) % Neutrophils # (1.3-7.7) k/uL Lymphocytes # (1.0-4.8) k/uL ABG pCO2 47 H (35-45) mmHg ABG pO2 246 H (83-108) mmHg ABG HCO3 27 H (21-25) mmol/L ABG Total CO2 29 H (19-24) mmol/L ABG O2 Saturation 100.0 H (94-97) % ABG Ionized Calcium (4.5-5.3) mg/dL ABG Glucose (75-99) mg/dL ABG Lactic Acid (0.5-1.6) mmol/L Hemoglobin (13.0-17.5) gm/dL Sodium (137-145) mmol/L Chloride 108 H (98-107) mmol/L Glucose 127 H (74-99) mg/dL POC Glucose (mg/dL) 114 H (75-99) mg/dL Calcium (8.4-10.2) mg/dL Ionized Calcium [place] 5.4 H (4.5-5.3) mg/dL Magnesium (1.6-2.3) mg/dL Total Protein 5.1 L (6.3-8.2) g/dL Albumin 3.2 L (3.5-5.0) g/dL Arterial Blood Glucose (75-99) mg/dL Crossmatch 02/25/20 02/25/20 02/25/20 Range/Units 13:08 13:45 13:49 WBC 12.7 H (3.8-10.6) k/uL RBC (4.30-5.90) m/uL Hgb (13.0-17.5) gm/dL Hct (39.0-53.0) % Neutrophils # 10.4 H (1.3-7.7) k/uL Lymphocytes # (1.0-4.8) k/uL ABG pCO2 (35-45) mmHg ABG pO2 (83-108) mmHg ABG HCO3 (21-25) mmol/L ABG Total CO2 (19-24) mmol/L ABG O2 Saturation (94-97) % ABG Ionized Calcium (4.5-5.3) mg/dL ABG Glucose (75-99) mg/dL ABG Lactic Acid (0.5-1.6) mmol/L Hemoglobin (13.0-17.5) gm/dL Sodium (137-145) mmol/L Chloride (98-107) mmol/L Glucose (74-99) mg/dL POC Glucose (mg/dL) 118 H 146 H (75-99) mg/dL Calcium (8.4-10.2) mg/dL Ionized Calcium [place] (4.5-5.3) mg/dL Magnesium (1.6-2.3) mg/dL Total Protein (6.3-8.2) g/dL Albumin (3.5-5.0) g/dL Arterial Blood Glucose (75-99) mg/dL Crossmatch 12/17/20 12/17/20 12/17/20 Range/Units 14:25 15:10 16:07 WBC (3.8-10.6) k/uL RBC (4.30-5.90) m/uL Hgb (13.0-17.5) gm/dL Hct (39.0-53.0) % Neutrophils # (1.3-7.7) k/uL Lymphocytes # (1.0-4.8) k/uL ABG pCO2 (35-45) mmHg ABG pO2 (83-108) mmHg ABG HCO3 27 H (21-25) mmol/L ABG Total CO2 28 H (19-24) mmol/L ABG O2 Saturation (94-97) % ABG Ionized Calcium (4.5-5.3) mg/dL ABG Glucose (75-99) mg/dL ABG Lactic Acid (0.5-1.6) mmol/L Hemoglobin (13.0-17.5) gm/dL Sodium (137-145) mmol/L Chloride (98-107) mmol/L Glucose (74-99) mg/dL POC Glucose (mg/dL) 146 H 121 H (75-99) mg/dL Calcium (8.4-10.2) mg/dL Ionized Calcium [place] (4.5-5.3) mg/dL Magnesium (1.6-2.3) mg/dL Total Protein (6.3-8.2) g/dL Albumin (3.5-5.0) g/dL Arterial Blood Glucose (75-99) mg/dL Crossmatch 02/25/20 02/25/20 02/25/20 Range/Units 17:00 17:03 18:11 WBC 14.2 H (3.8-10.6) k/uL RBC (4.30-5.90) m/uL Hgb (13.0-17.5) gm/dL Hct (39.0-53.0) % Neutrophils # 12.9 H (1.3-7.7) k/uL Lymphocytes # 0.4 L (1.0-4.8) k/uL ABG pCO2 (35-45) mmHg ABG pO2 (83-108) mmHg ABG HCO3 (21-25) mmol/L ABG Total CO2 (19-24) mmol/L ABG O2 Saturation (94-97) % ABG Ionized Calcium (4.5-5.3) mg/dL ABG Glucose (75-99) mg/dL ABG Lactic Acid (0.5-1.6) mmol/L Hemoglobin (13.0-17.5) gm/dL Sodium (137-145) mmol/L Chloride (98-107) mmol/L Glucose (74-99) mg/dL POC Glucose (mg/dL) 139 H 127 H (75-99) mg/dL Calcium (8.4-10.2) mg/dL Ionized Calcium [place] (4.5-5.3) mg/dL Magnesium (1.6-2.3) mg/dL Total Protein (6.3-8.2) g/dL Albumin (3.5-5.0) g/dL Arterial Blood Glucose (75-99) mg/dL Crossmatch 02/25/20 02/25/20 02/25/20 Range/Units 19:09 20:02 21:09 WBC (3.8-10.6) k/uL RBC (4.30-5.90) m/uL Hgb (13.0-17.5) gm/dL Hct (39.0-53.0) % Neutrophils # (1.3-7.7) k/uL Lymphocytes # (1.0-4.8) k/uL ABG pCO2 (35-45) mmHg ABG pO2 (83-108) mmHg ABG HCO3 (21-25) mmol/L ABG Total CO2 (19-24) mmol/L ABG O2 Saturation (94-97) % ABG Ionized Calcium (4.5-5.3) mg/dL ABG Glucose (75-99) mg/dL ABG Lactic Acid (0.5-1.6) mmol/L Hemoglobin (13.0-17.5) gm/dL Sodium (137-145) mmol/L Chloride (98-107) mmol/L Glucose (74-99) mg/dL POC Glucose (mg/dL) 104 H 102 H 133 H (75-99) mg/dL Calcium (8.4-10.2) mg/dL Ionized Calcium [place] (4.5-5.3) mg/dL Magnesium (1.6-2.3) mg/dL Total Protein (6.3-8.2) g/dL Albumin (3.5-5.0) g/dL Arterial Blood Glucose (75-99) mg/dL Crossmatch 02/25/20 02/25/20 02/26/20 Range/Units 22:08 23:01 00:07 WBC (3.8-10.6) k/uL RBC (4.30-5.90) m/uL Hgb (13.0-17.5) gm/dL Hct (39.0-53.0) % Neutrophils # (1.3-7.7) k/uL Lymphocytes # (1.0-4.8) k/uL ABG pCO2 (35-45) mmHg ABG pO2 (83-108) mmHg ABG HCO3 (21-25) mmol/L ABG Total CO2 (19-24) mmol/L ABG O2 Saturation (94-97) % ABG Ionized Calcium (4.5-5.3) mg/dL ABG Glucose (75-99) mg/dL ABG Lactic Acid (0.5-1.6) mmol/L Hemoglobin (13.0-17.5) gm/dL Sodium (137-145) mmol/L Chloride (98-107) mmol/L Glucose (74-99) mg/dL POC Glucose (mg/dL) 131 H 130 H 117 H (75-99) mg/dL Calcium (8.4-10.2) mg/dL Ionized Calcium [place] (4.5-5.3) mg/dL Magnesium (1.6-2.3) mg/dL Total Protein (6.3-8.2) g/dL Albumin (3.5-5.0) g/dL Arterial Blood Glucose (75-99) mg/dL Crossmatch 02/26/20 02/26/20 02/26/20 Range/Units 01:06 02:03 03:04 WBC (3.8-10.6) k/uL RBC (4.30-5.90) m/uL Hgb (13.0-17.5) gm/dL Hct (39.0-53.0) % Neutrophils # (1.3-7.7) k/uL Lymphocytes # (1.0-4.8) k/uL ABG pCO2 (35-45) mmHg ABG pO2 (83-108) mmHg ABG HCO3 (21-25) mmol/L ABG Total CO2 (19-24) mmol/L ABG O2 Saturation (94-97) % ABG Ionized Calcium (4.5-5.3) mg/dL ABG Glucose (75-99) mg/dL ABG Lactic Acid (0.5-1.6) mmol/L Hemoglobin (13.0-17.5) gm/dL Sodium (137-145) mmol/L Chloride (98-107) mmol/L Glucose (74-99) mg/dL POC Glucose (mg/dL) 119 H 115 H 108 H (75-99) mg/dL Calcium (8.4-10.2) mg/dL Ionized Calcium [place] (4.5-5.3) mg/dL Magnesium (1.6-2.3) mg/dL Total Protein (6.3-8.2) g/dL Albumin (3.5-5.0) g/dL Arterial Blood Glucose (75-99) mg/dL Crossmatch 02/26/20 02/26/20 02/26/20 Range/Units 04:15 04:15 04:18 WBC (3.8-10.6) k/uL RBC (4.30-5.90) m/uL Hgb (13.0-17.5) gm/dL Hct (39.0-53.0) % Neutrophils # (1.3-7.7) k/uL Lymphocytes # 0.7 L (1.0-4.8) k/uL ABG pCO2 (35-45) mmHg ABG pO2 (83-108) mmHg ABG HCO3 (21-25) mmol/L ABG Total CO2 (19-24) mmol/L ABG O2 Saturation (94-97) % ABG Ionized Calcium (4.5-5.3) mg/dL ABG Glucose (75-99) mg/dL ABG Lactic Acid (0.5-1.6) mmol/L Hemoglobin (13.0-17.5) gm/dL Sodium 134 L (137-145) mmol/L Chloride (98-107) mmol/L Glucose 124 H (74-99) mg/dL POC Glucose (mg/dL) 122 H (75-99) mg/dL Calcium 8.3 L (8.4-10.2) mg/dL Ionized Calcium [place] (4.5-5.3) mg/dL Magnesium 1.5 L (1.6-2.3) mg/dL Total Protein 5.2 L (6.3-8.2) g/dL Albumin 3.2 L (3.5-5.0) g/dL Arterial Blood Glucose (75-99) mg/dL Crossmatch 02/26/20 02/26/20 Range/Units 05:16 07:05 WBC (3.8-10.6) k/uL RBC (4.30-5.90) m/uL Hgb (13.0-17.5) gm/dL Hct (39.0-53.0) % Neutrophils # (1.3-7.7) k/uL Lymphocytes # (1.0-4.8) k/uL ABG pCO2 (35-45) mmHg ABG pO2 (83-108) mmHg ABG HCO3 (21-25) mmol/L ABG Total CO2 (19-24) mmol/L ABG O2 Saturation (94-97) % ABG Ionized Calcium (4.5-5.3) mg/dL ABG Glucose (75-99) mg/dL ABG Lactic Acid (0.5-1.6) mmol/L Hemoglobin (13.0-17.5) gm/dL Sodium (137-145) mmol/L Chloride (98-107) mmol/L Glucose (74-99) mg/dL POC Glucose (mg/dL) 123 H 129 H (75-99) mg/dL Calcium (8.4-10.2) mg/dL Ionized Calcium [place] (4.5-5.3) mg/dL Magnesium (1.6-2.3) mg/dL Total Protein (6.3-8.2) g/dL Albumin (3.5-5.0) g/dL Arterial Blood Glucose (75-99) mg/dL Crossmatch - Imaging and Cardiology Chest x-ray: image reviewed Assessment and Plan Assessment: 1. Coronary artery disease, history of stenting to the LAD in August 2018, status post off pump CABG HERNDON to the LAD 2. Hypertension 3. Hyperlipidemia 4. Hypothyroidism 5. Osteoarthritis 6. Remote history of tobacco use 7. Family history of premature coronary artery disease Plan: 1. Continue aspirin, statin, Plavix, beta bakari therapy. Will increase beta bakari therapy as tolerated 2. Wean O2 as tolerated. Encourage is and spirometry use and times every hour while awake. Bronchodilators per pulmonology 3. Increase activity, ambulate as tolerated. PT/OT/cardiac rehab consulted 4. Will monitor daily labs and x-rays. Electrolyte replacement per protocol 5. Insulin management per primary care service. Patient is not a diabetic, hemoglobin A1c 6% 6. GI/DVT prophylaxis 7. Pain control with current medication regimen 8. Discontinue [place]. Connect [place] to continuous CVP monitoring 9. Will continue chest tubes for another 24 hours 10. Will continue Lewis catheter for another 24 hours for strict accurate intake and output. Daily weights. 11. More recommendations to follow based on patient's progress Time with Patient: Greater than 30
[2020-02-26 08:26] LABS: Glucose,Whole Blood 150 mg/dL (75-99)
[2020-02-26] MEDS: ASPIRIN 325 MG TAB PO SCH (08:44)
[2020-02-26] MEDS: METOPROLOL TARTRATE 25 MG TAB PO SCH ×2 (08:44→20:52)
[2020-02-26] MEDS: CLOPIDOGREL 75 MG TAB PO SCH (08:44)
[2020-02-26] MEDS: ATORVASTATIN 40 MG TAB PO SCH (08:44)
[2020-02-26] MEDS: LACTATED RINGERS 1,000 ML IV SCH (08:53)
[2020-02-26] MEDS ORDERED: MAGNESIUM HYDROXIDE 2,400 MG/10 ML CUP PO PRN (09:00)
[2020-02-26] MEDS ORDERED: METOPROLOL TARTRATE 12.5 MG TAB PO SCH (09:00)
[2020-02-26] MEDS ORDERED: bisacodyL 10 MG SUPP RECTAL PRN (09:00)
[2020-02-26] MEDS ORDERED: PANTOPRAZOLE 40 MG/10 ML VIAL IVP SCH (09:00)
[2020-02-26 09:28] LABS: Glucose,Whole Blood 138 mg/dL (75-99)
[2020-02-26] MEDS: IPRATROPIUM-ALBUTEROL 3 ML NEB INHALATION SCH ×4 (09:52→20:05)
[2020-02-26 10:22] LABS: Glucose,Whole Blood 130 mg/dL (75-99)
[2020-02-26 11:46] LABS: Glucose,Whole Blood 118 mg/dL (75-99)
--- NOTE | 2020-02-26 14:05 | PN ---
PROGRESS NOTE Mr. Devries is doing well. He is sitting up in a chair. His blood pressure is 138/72 mmHg, pulse rate is in the 60s, temperature 99 degrees. Breath sounds are reduced bilaterally at the bases. Heart sounds S1, S2 are soft. His rhythm is regular. He underwent coronary artery bypass grafting off pump. He was extubated successfully and now is doing well. He still has his mediastinal and left pleural chest tube, right IJ sheath and the right atrial anterior present. He is doing well and we will continue his current medications. Suggest continue aspirin, Plavix, atorvastatin 40 mg p.o. daily. MMODL / IJN: [id number] /
[2020-02-26 14:40] LABS: Glucose,Whole Blood 125 mg/dL (75-99)
[2020-02-26 15:22] VITALS: BMI 29.9
--- NOTE | 2020-02-26 16:06 | P.PN ---
Subjective Progress Note Date: 02/26/20 Principal diagnosis: Coronary artery disease, status post single-vessel bypass This is a 69-year-old white male patient has medical history of hypertension, hyperlipidemia, hypothyroidism, osteoarthritis, previous history of tobacco use, and family history of premature coronary artery disease. Patient had previous history of stenting to the LAD. Patient recently had elective heart catheterization with Dr. Andres after having exertional chest discomfort and shortness of breath for the previous 6 months that was similar to the chest discomfort prior to his stent placement. His heart catheterization revealed 99% stenosed to the proximal LAD. Echocardiogram from January 2020 revealed LV function with ejection fraction of 45-50% with grade 1 diastolic dysfunction, mild left ventricular hypertrophy, mild mitral regurg, with calcified mitral valve and mild tricuspid valve regurgitation on 02/26/2020 patient underwent single-vessel bypass surgery with the HERNDON to LAD, patient has done very well in the postoperative period, he was extubated within just a few hours from his OR exit time. Today is postoperative day 1, she is awake and alert, currently on 4 L of oxygen with a pulse ox of 95%, hemodynamically she is stable, he is in sinus mechanism, with a controlled rate, his IV includes LR at 30 ML per hour, nitroglycerin is at 5 mics per kilo per minute, insulin drip is at 0.5 units per hour, PA pressures 27/12, CVP is 5, cardiac output is 4.3, cardiac index is 2.0, patient has a left pleural and mediastinal chest tubes were connected together, with 550 ML of serosanguineous output in the last 24 hours, he is nonoliguric, his incentive spirometry effort is about 500 on today's exam, and patient is having some incisional pain issues today, he's been medicated with Tylenol, IV Toradol, and [place]. Is currently on 4 L of oxygen and the pulse ox of 95%, chest x-ray today shows patchy perihilar infiltrate left lower lobe and left perihilar region. Vital signs have been stable, no fever or chills. Today's labs have been reviewed, showing limits, 8.9, hemoglobin of 13.8, sodium is 134, rest of electrolytes and renal profile were unremarkable Objective - Vital Signs Vital signs: Vital Signs Temp 99.0 F 02/26/20 11:00 Pulse 65 02/26/20 15:00 Resp 16 02/26/20 15:00 BP 119/72 02/26/20 15:00 Pulse Ox 94 L 02/26/20 15:00 Intake & Output 02/25/20 02/26/20 02/26/20 18:59 06:59 18:59 Intake Total 989.359 7973.225 742 Output Total 2060 1275 525 Balance -1475.083 -136.775 217 Weight 97.6 kg 97.6 kg Intake: IV 554 1073 742 ACETAMINOPHEN IV (For NPO 100 ) 1,000 mg In Empty Bag 1 bag @ 400 mls/hr IVPB Q6HR DOM Rx#:[id number] Albumin Human 5% 250 ml 250 In Empty Bag 1 bag @ 250 mls/hr IVPB Q1HR PRN Rx#: [id number] CO/CI 60 20 Lactated Ringers 1,000 ml 400 600 400 @ 20 mls/hr IV .Q24H DOM Rx#:[id number] Magnesium Sulfate-D5w Pmx 200 1 gm In Dextrose/Water 1 100ml.bag @ 100 mls/hr IVPB Q1H DOM Rx#: [id number] Pressure bags 63 72 ceFAZolin 2 gm In Sodium 50 100 50 Chloride 0.9% 50 ml @ 100 mls/hr IVPB Q8HR DOM Rx# :[id number] Intake, IV Titration 30.917 65.225 0 Amount Clevidipine Butyrate 25 26.633 57.667 mg In Empty Bag 1 bag @ 1 MG/HR 2 mls/hr IV .Q24H DOM Rx#:[id number] Insulin Regular 100 unit 4.284 7.558 0 In Sodium Chloride 0.9% 100 ml @ Per Protocol IV .Q0M DOM Rx#:[id number] Output: Chest Tube Drainage 300 250 80 Chest Tube Left Pleural/ 300 250 80 Mediastinal Urine 1460 1025 445 Estimated Blood Loss 300 Other: Voiding Method Indwelling Catheter Indwelling Catheter Indwelling Catheter # Voids 1 ABP, PAP, CO, CI - Last Documented Arterial Blood Pressure 116/63 Pulmonary Artery Pressure 28/10 Cardiac Output 4.3 Cardiac Index 2 - Exam GENERAL EXAM: Alert, very pleasant, 69-year-old white male, on 4 L of oxygen and the pulse ox of 94%, comfortable in no apparent distress. HEAD: Normocephalic/atraumatic. EYES: Normal reaction of pupils, equal size. Conjunctiva pink, sclera white. NOSE: Clear with pink turbinates. THROAT: No erythema or exudates. NECK: No masses, no JVD, no thyroid enlargement, no adenopathy. CHEST: No chest wall deformity. Symmetrical expansion. Midsternal incision is clean dry and intact, left pleural and mediastinal chest tube Kawai connected together, with a small amount of serosanguineous output in the Pleur-evac, with no evidence of air leak LUNGS: Equal air entry with no crackles, wheeze, rhonchi or dullness. CVS: Regular rate and rhythm, normal S1 and S2, no gallops, no murmurs, no rubs ABDOMEN: Soft, nontender. No hepatosplenomegaly, normal bowel sounds, no guarding or rigidity. EXTREMITIES: No clubbing, no edema, no cyanosis, 2+ pulses and upper and lower extremities. MUSCULOSKELETAL: Muscle strength and tone normal. SPINE: No scoliosis or deformity SKIN: No rashes CENTRAL NERVOUS SYSTEM: Alert and oriented -3. No focal deficits, tone is normal in all 4 extremities. PSYCHIATRIC: Alert and oriented -3. Appropriate affect. Intact judgment and insight. - Labs CBC & Chem 7: 02/26/20 04:15 02/26/20 04:15 Labs: Abnormal Lab Results - Last 24 Hours (Table) 02/23/20 02/25/20 02/25/20 Range/Units 10:12 16:07 17:00 WBC 14.2 H (3.8-10.6) k/uL Neutrophils # 12.9 H (1.3-7.7) k/uL Lymphocytes # 0.4 L (1.0-4.8) k/uL Sodium (137-145) mmol/L Glucose (74-99) mg/dL POC Glucose (mg/dL) 121 H (75-99) mg/dL Calcium (8.4-10.2) mg/dL Magnesium (1.6-2.3) mg/dL Total Protein (6.3-8.2) g/dL Albumin (3.5-5.0) g/dL Crossmatch See Detail 02/25/20 02/25/20 02/25/20 Range/Units 17:03 18:11 19:09 WBC (3.8-10.6) k/uL Neutrophils # (1.3-7.7) k/uL Lymphocytes # (1.0-4.8) k/uL Sodium (137-145) mmol/L Glucose (74-99) mg/dL POC Glucose (mg/dL) 139 H 127 H 104 H (75-99) mg/dL Calcium (8.4-10.2) mg/dL Magnesium (1.6-2.3) mg/dL Total Protein (6.3-8.2) g/dL Albumin (3.5-5.0) g/dL Crossmatch 02/25/20 02/25/20 02/25/20 Range/Units 20:02 21:09 22:08 WBC (3.8-10.6) k/uL Neutrophils # (1.3-7.7) k/uL Lymphocytes # (1.0-4.8) k/uL Sodium (137-145) mmol/L Glucose (74-99) mg/dL POC Glucose (mg/dL) 102 H 133 H 131 H (75-99) mg/dL Calcium (8.4-10.2) mg/dL Magnesium (1.6-2.3) mg/dL Total Protein (6.3-8.2) g/dL Albumin (3.5-5.0) g/dL Crossmatch 02/25/20 02/26/20 02/26/20 Range/Units 23:01 00:07 01:06 WBC (3.8-10.6) k/uL Neutrophils # (1.3-7.7) k/uL Lymphocytes # (1.0-4.8) k/uL Sodium (137-145) mmol/L Glucose (74-99) mg/dL POC Glucose (mg/dL) 130 H 117 H 119 H (75-99) mg/dL Calcium (8.4-10.2) mg/dL Magnesium (1.6-2.3) mg/dL Total Protein (6.3-8.2) g/dL Albumin (3.5-5.0) g/dL Crossmatch 02/26/20 02/26/20 02/26/20 Range/Units 02:03 03:04 04:15 WBC (3.8-10.6) k/uL Neutrophils # (1.3-7.7) k/uL Lymphocytes # 0.7 L (1.0-4.8) k/uL Sodium (137-145) mmol/L Glucose (74-99) mg/dL POC Glucose (mg/dL) 115 H 108 H (75-99) mg/dL Calcium (8.4-10.2) mg/dL Magnesium (1.6-2.3) mg/dL Total Protein (6.3-8.2) g/dL Albumin (3.5-5.0) g/dL Crossmatch 02/26/20 02/26/20 02/26/20 Range/Units 04:15 04:18 05:16 WBC (3.8-10.6) k/uL Neutrophils # (1.3-7.7) k/uL Lymphocytes # (1.0-4.8) k/uL Sodium 134 L (137-145) mmol/L Glucose 124 H (74-99) mg/dL POC Glucose (mg/dL) 122 H 123 H (75-99) mg/dL Calcium 8.3 L (8.4-10.2) mg/dL Magnesium 1.5 L (1.6-2.3) mg/dL Total Protein 5.2 L (6.3-8.2) g/dL Albumin 3.2 L (3.5-5.0) g/dL Crossmatch 02/26/20 02/26/20 02/26/20 Range/Units 07:05 08:25 09:26 WBC (3.8-10.6) k/uL Neutrophils # (1.3-7.7) k/uL Lymphocytes # (1.0-4.8) k/uL Sodium (137-145) mmol/L Glucose (74-99) mg/dL POC Glucose (mg/dL) 129 H 150 H 138 H (75-99) mg/dL Calcium (8.4-10.2) mg/dL Magnesium (1.6-2.3) mg/dL Total Protein (6.3-8.2) g/dL Albumin (3.5-5.0) g/dL Crossmatch 02/26/20 02/26/20 02/26/20 Range/Units 10:21 11:44 14:39 WBC (3.8-10.6) k/uL Neutrophils # (1.3-7.7) k/uL Lymphocytes # (1.0-4.8) k/uL Sodium (137-145) mmol/L Glucose (74-99) mg/dL POC Glucose (mg/dL) 130 H 118 H 125 H (75-99) mg/dL Calcium (8.4-10.2) mg/dL Magnesium (1.6-2.3) mg/dL Total Protein (6.3-8.2) g/dL Albumin (3.5-5.0) g/dL Crossmatch Assessment and Plan Plan: Assessment: #1. Symptomatic coronary artery disease, with heart catheterization revealing 99% in-stent restenosis of the LAD, that was previously stented in August 2018. Patient is status post single-vessel bypass with HERNDON to LAD, which was done off pump, postoperative day #1 #2. Routine postoperative ventilator management, patient was extubated within a few hours of OR exit time, at 1450 on postoperative day 0, on 02/26/2020 #3. History of CAD, previous stenting to the LAD in August 2018 #4. Hypertension #5. Hyperlipidemia #6. Hypothyroidism #7. Osteoarthritis #8. Remote history of tobacco use, preop FEV1 revealed a value of 3.1 L prior to surgery #9. Diabetes mellitus, not insulin dependent #10. GERD/reflux #11. Significant family history of premature coronary artery disease Plan: Today's chest x-ray has been reviewed, encourage deep breathing and coughing, maintain pain control. Labs have been reviewed. He'll, monitor urine and chest tube output, wean FiO2, continue with breathing treatments as needed. GI and DVT prophylaxis per CT surgery, we'll continue to closely follow with CT surgery. Patient will be monitored in the ICU today I performed a history & physical examination of the patient and discussed their management with my nurse practitioner, Stella Ashton. I reviewed the nurse practitioner's note and agree with the documented findings and plan of care. Lung sounds are positive for diminished breath sounds. The findings and the impression was discussed with the patient. I attest to the documentation by the nurse practitioner. Time with Patient: Less than 30
[2020-02-26 16:41] LABS: Glucose,Whole Blood 114 mg/dL (75-99)
[2020-02-26 18:35] LABS: Glucose,Whole Blood 119 mg/dL (75-99)
[2020-02-26 20:15] LABS: Glucose,Whole Blood 113 mg/dL (75-99)
[2020-02-26] MEDS: SENNOSIDES-DOCUSATE SODIUM 1 EACH TAB PO SCH (20:52)
[2020-02-26 21:57] LABS: Glucose,Whole Blood 121 mg/dL (75-99)
[2020-02-27 00:29] LABS: Glucose,Whole Blood 101 mg/dL (75-99)
[2020-02-27] MEDS: KETOROLAC 15 MG/ML 1 ML VIAL IVP SCH ×4 (00:30→17:05)
[2020-02-27 01:52] LABS: Glucose,Whole Blood 102 mg/dL (75-99)
[2020-02-27 04:11] LABS: Glucose,Whole Blood 110 mg/dL (75-99)
[2020-02-27] MEDS: HYDROcodone/APAP 5-325MG 1 EACH TAB PO PRN (04:13)
[2020-02-27] MEDS: HEPARIN SODIUM,PORCINE 5,000 UNIT/ML 1 ML VIAL SQ SCH ×3 (04:13→20:30)
[2020-02-27 04:39] LABS: Basophils % (A) 0 %; Eosinophils # (A) 0.1 k/uL (0-0.7); Eosinophils % (A) 1 %; HCT 38.8 % (39.0-53.0); HGB 12.8 gm/dL (13.0-17.5); Lymphocytes # (A) 0.5 k/uL (1.0-4.8); Lymphocytes % (A) 6 %; MCH 29.1 pg (25.0-35.0); MCHC 32.8 g/dL (31.0-37.0); MCV 88.5 fL (80.0-100.0); Mean Platelet Volume 6.9; Monocytes # (A) 0.3 k/uL (0-1.0); Monocytes % (A) 4 %; Neutrophils # (A) 6.4 k/uL (1.3-7.7); Neutrophils % (A) 88 %; Platelet Count 135 k/uL (150-450); RBC 4.39 m/uL (4.30-5.90); RDW 13.2 % (11.5-15.5); WBC 7.3 k/uL (3.8-10.6)
[2020-02-27 04:59] LABS: ALT 12 U/L (4-49); AST 18 U/L (17-59); African American GFR (CKD) >90 (>60 ml/min/1.73 sqM); Alkaline Phosphatase 65 U/L (38-126); Anion Gap 2 mmol/L; Blood Urea Nitrogen 16 mg/dL (9-20); Calcium 8.1 mg/dL (8.4-10.2); Carbon Dioxide 28 mmol/L (22-30); Chloride 108 mmol/L (98-107); Glucose 110 mg/dL (74-99); Non-African American GFR(CKD) >90 (>60 ml/min/1.73 sqM); Sodium 138 mmol/L (137-145); Total Bilirubin 1.2 mg/dL (0.2-1.3); Total Protein 5.1 g/dL (6.3-8.2)
[2020-02-27 06:14] LABS: Glucose,Whole Blood 102 mg/dL (75-99)
[2020-02-27] MEDS: LACTATED RINGERS 1,000 ML IV SCH (06:37)
[2020-02-27] MEDS: IPRATROPIUM-ALBUTEROL 3 ML NEB INHALATION SCH ×4 (07:20→18:55)
--- NOTE | 2020-02-27 07:23 | XR ---
EXAMINATION TYPE: XR chest 1V portable DATE OF EXAM: 02/27/2020 COMPARISON: 02/26/2020 HISTORY: Postop TECHNIQUE: Single frontal view of the chest is obtained. FINDINGS: Pal[place]-Brandon catheter has been removed. Mediastinal drain and chest tube remain diffuse bilat eral infiltrates and pleural effusion. Heart is enlarged postsurgical change. No sizable pneumothorax . IMPRESSION: Diffuse bilateral infiltrate and pleural lesion correlate for CHF versus pneumonia.
[2020-02-27] MEDS: ASPIRIN 325 MG TAB PO SCH (08:37)
[2020-02-27] MEDS: CLOPIDOGREL 75 MG TAB PO SCH (08:37)
[2020-02-27] MEDS: ATORVASTATIN 40 MG TAB PO SCH (08:37)
[2020-02-27] MEDS: ACETAMINOPHEN TAB 500 MG TAB PO PRN (08:37)
[2020-02-27] MEDS: METOPROLOL TARTRATE 25 MG TAB PO SCH ×2 (08:37→20:30)
[2020-02-27] MEDS: PANTOPRAZOLE 40 MG TABLET PO SCH (08:49)
[2020-02-27] MEDS: LEVOTHYROXINE 125 MCG TAB PO SCH (09:07)
--- NOTE | 2020-02-27 11:18 | P.PN ---
Subjective Progress Note Date: 02/27/20 Principal diagnosis: Coronary artery disease. Past medical history significant for stenting to the LAD in August 2018, hypertension, hyperlipidemia, hypothyroidism, osteoarthritis, remote history of tobacco use, and family history of premature coronary artery disease. POD #2 off-pump coronary artery bypass grafting 1 with left internal mammary artery to the left anterior descending artery. The patient was seen in follow-up today at his bedside in the intensive care unit on 02/27/2020. Currently sitting up to the bedside chair, he is awake, alert and is oriented 3. Denies any complaints of shortness of breath although he is complaining of some surgical type pain to his chest tube insertion sites with taking deep breaths. Oxygen saturations are 94% on 3 L nasal cannula and he is achieving 1000 mL on his incentive spirometry with much encouragement. Right IJ Cordis in place with continuous CVP monitoring, current CVP pressure 6 mmHg. Objective - Vital Signs Vital signs: Vital Signs Temp 98.0 F 02/27/20 08:00 Pulse 66 02/27/20 10:00 Resp 16 02/27/20 10:00 BP 129/75 02/27/20 10:00 Pulse Ox 94 L 02/27/20 10:00 Intake & Output 02/26/20 02/27/20 02/27/20 18:59 06:59 18:59 Intake Total 904 728 72 Output Total 735 1900 220 Balance 169 -1172 -148 Weight 97.6 kg 95.1 kg Intake: IV 904 728 72 CO/CI 20 Lactated Ringers 1,000 ml 550 650 60 @ 20 mls/hr IV .Q24H DOM Rx#:[id number] Magnesium Sulfate-D5w Pmx 200 1 gm In Dextrose/Water 1 100ml.bag @ 100 mls/hr IVPB Q1H DOM Rx#: [id number] Pressure bags 84 78 12 ceFAZolin 2 gm In Sodium 50 Chloride 0.9% 50 ml @ 100 mls/hr IVPB Q8HR DOM Rx# :[id number] Intake, IV Titration 0 Amount Insulin Regular 100 unit 0 In Sodium Chloride 0.9% 100 ml @ Per Protocol IV .Q0M DOM Rx#:[id number] Output: Chest Tube Drainage 80 190 40 Chest Tube Left Pleural/ 80 190 40 Mediastinal Urine 655 1710 180 Other: Voiding Method Indwelling Catheter Indwelling Catheter # Bowel Movements 0 ABP, PAP, CO, CI - Last Documented Arterial Blood Pressure 130/64 Pulmonary Artery Pressure 28/10 Cardiac Output 4.3 Cardiac Index 2 - Constitutional General appearance: Present: cooperative, no acute distress, obese - EENT Eyes: Present: PERRLA, normal appearance. Absent: scleral icterus - Neck Details: Neck is supple, no JVD, no lymphadenopathy. - Respiratory Details: Lung sounds are essentially clear throughout, diminished to his bilateral bases. No wheezes, rhonchi or crackles. Respirations are symmetrical and nonlabored. Oxygen saturation are 94% on 3 L nasal cannula. Achieving 1000 mL on his incentive spirometry. Mediastinal and left pleural chest tubes remain in place to low continuous wall suction -20 cm H2O. No air leaks present. Draining thin serosanguineous drainage. 100 mL output in the last 8 hours and 330 mL output in the last 24 hours. - Cardiovascular Details: Regular rhythm and rate. S1 and S2 present, negative for S3, gallop or murmur. Sternum is stable. Bedside telemetry showing normal sinus rhythm heart rate 75. Right IJ Cordis in place with continuous CVP monitoring. Current CVP pressure 6 mmHg. Heart hugger is in place and he is demonstrating appropriate use. Knee-high TOPHER hose and sequential compression devices in place to his bilateral lower extremities. - Gastrointestinal Gastrointestinal Comment(s): Abdomen is soft, nontender and nondistended. Active bowel sounds present all 4 abdominal quadrants. Passing flatus. Tolerating oral intake. - Genitourinary Genitourinary Comment(s): Lewis catheter for accurate I&O. Draining clear jyoti urine. - Integumentary Integumentary Comment(s): Skin is warm and dry. No clubbing or cyanosis is present. Midline sternal incision is clean, dry and approximated. No drainage redness is present. - Neurologic Neurologic: Present: CNII-XII intact - Musculoskeletal Musculoskeletal: Present: gait normal, generalized weakness, strength equal bilaterally - Psychiatric Psychiatric: Present: A&O x's 3, appropriate affect, intact judgment & insight - Allied health notes Allied health notes reviewed: nursing - Labs CBC & Chem 7: 02/27/20 04:20 02/27/20 04:20 Labs: Abnormal Lab Results - Last 24 Hours (Table) 02/26/20 02/26/20 02/26/20 Range/Units 11:44 14:39 16:40 Hgb (13.0-17.5) gm/dL Hct (39.0-53.0) % Plt Count (150-450) k/uL Lymphocytes # (1.0-4.8) k/uL Chloride (98-107) mmol/L Glucose (74-99) mg/dL POC Glucose (mg/dL) 118 H 125 H 114 H (75-99) mg/dL Calcium (8.4-10.2) mg/dL Total Protein (6.3-8.2) g/dL Albumin (3.5-5.0) g/dL 02/26/20 02/26/20 02/26/20 Range/Units 18:34 20:14 21:56 Hgb (13.0-17.5) gm/dL Hct (39.0-53.0) % Plt Count (150-450) k/uL Lymphocytes # (1.0-4.8) k/uL Chloride (98-107) mmol/L Glucose (74-99) mg/dL POC Glucose (mg/dL) 119 H 113 H 121 H (75-99) mg/dL Calcium (8.4-10.2) mg/dL Total Protein (6.3-8.2) g/dL Albumin (3.5-5.0) g/dL 02/27/20 02/27/20 02/27/20 Range/Units 00:27 01:51 04:09 Hgb (13.0-17.5) gm/dL Hct (39.0-53.0) % Plt Count (150-450) k/uL Lymphocytes # (1.0-4.8) k/uL Chloride (98-107) mmol/L Glucose (74-99) mg/dL POC Glucose (mg/dL) 101 H 102 H 110 H (75-99) mg/dL Calcium (8.4-10.2) mg/dL Total Protein (6.3-8.2) g/dL Albumin (3.5-5.0) g/dL 02/27/20 02/27/20 02/27/20 Range/Units 04:20 04:20 06:13 Hgb 12.8 L (13.0-17.5) gm/dL Hct 38.8 L (39.0-53.0) % Plt Count 135 L (150-450) k/uL Lymphocytes # 0.5 L (1.0-4.8) k/uL Chloride 108 H (98-107) mmol/L Glucose 110 H (74-99) mg/dL POC Glucose (mg/dL) 102 H (75-99) mg/dL Calcium 8.1 L (8.4-10.2) mg/dL Total Protein 5.1 L (6.3-8.2) g/dL Albumin 3.0 L (3.5-5.0) g/dL - Imaging and Cardiology Chest x-ray: report reviewed, image reviewed Assessment and Plan Assessment: 1. Coronary artery disease, history of stenting to the LAD in August 2018, status post off pump CABG HERNDON to the LAD 2. Hypertension 3. Hyperlipidemia 4. Hypothyroidism 5. Osteoarthritis 6. Remote history of tobacco use 7. Family history of premature coronary artery disease Plan: 1. Continue aspirin, statin, Plavix, beta bakari. Will increase beta bakari as tolerated. 2. Wean O2 as tolerated. Encourage incentive spirometry use 10 times every hour while awake. Bronchodilators per pulmonology. 3. Increase activity, ambulate as tolerated. PT/OT/cardiac rehab following. 4. Will monitor daily labs and chest x-rays. Electrolyte replacement per protocol. 5. Insulin management per primary care service. Patient is not a diabetic, preoperative hemoglobin A1c 6%. 6. GI/DVT prophylaxis 7. Pain control with current medication regimen. Discontinue Dickens. 8. Discontinue right IJ Cordis. 9. Mediastinal and left pleural chest tubes were discontinued without incident. 4 x 4 gauze to cover, impregnated Vaseline gauze to cover and secured with tape. 10. Discontinue Lewis catheter. Continue to record strict and accurate intake and output. Daily weights. 11. Transferred to cardiac stepdown unit. 12. More recommendations to follow based on patient's clinical course. Time with Patient: Greater than 30
[2020-02-27 11:49] LABS: Glucose,Whole Blood 127 mg/dL (75-99)
[2020-02-27] MEDS: INSULIN ASPART (NovoLOG) 100 UNIT/ML VIAL SQ SCH ×3 (11:53→21:33)
--- NOTE | 2020-02-27 14:10 | P.PN ---
Subjective Progress Note Date: 02/27/20 Principal diagnosis: Status post off-pump coronary artery bypass grafting 1, HERNDON to LAD, postoperative day #2 This is a 69-year-old white male patient has medical history of hypertension, hyperlipidemia, hypothyroidism, osteoarthritis, previous history of tobacco use, and family history of premature coronary artery disease. Patient had previous history of stenting to the LAD. Patient recently had elective heart catheterization with Dr. Andres after having exertional chest discomfort and shortness of breath for the previous 6 months that was similar to the chest discomfort prior to his stent placement. His heart catheterization revealed 99% stenosed to the proximal LAD. Echocardiogram from January 2020 revealed LV function with ejection fraction of 45-50% with grade 1 diastolic dysfunction, mild left ventricular hypertrophy, mild mitral regurg, with calcified mitral valve and mild tricuspid valve regurgitation on 02/26/2020 patient underwent single-vessel bypass surgery with the HERNDON to LAD, patient has done very well in the postoperative period, he was extubated within just a few hours from his OR exit time. Today is postoperative day 1, she is awake and alert, currently on 4 L of oxygen with a pulse ox of 95%, hemodynamically she is stable, he is in s inus mechanism, with a controlled rate, his IV includes LR at 30 ML per hour, nitroglycerin is at 5 mics per kilo per minute, insulin drip is at 0.5 units per hour, PA pressures 27/12, CVP is 5, cardiac output is 4.3, cardiac index is 2.0, patient has a left pleural and mediastinal chest tubes were connected together, with 550 ML of serosanguineous output in the last 24 hours, he is nonoliguric, h is incentive spirometry effort is about 500 on today's exam, and patient is having some incisional pain issues today, he's been medicated with Tylenol, IV Toradol, and [place]. Is currently on 4 L of oxygen and the pulse ox of 95%, chest x-ray today shows patchy perihilar infiltrate left lower lobe and left perihilar region. Vital signs have been stable, no fever or chills. Today's labs have been reviewed, showing limits, 8.9, hemoglobin of 13.8, sodium is 134, rest of electrolytes and renal profile were unremarkable Reevaluated today on 02/27/20, patient is postoperative day #2, patient is sitting in bed, denies any shortness of breath, denies any significant pain, he has some discomfort at the surgical site and at the site of chest tube insertion, he is on 3 L nasal cannula with O2 saturation of 94%. Achieving about 1000 ML on his incentive spirometry. Chest x-ray looks abnormal with interstitial edema, and left lower lobe atelectasis. Will likely improve with diuretics and with incentive spirometer. And it showed mostly postoperative findings, expected. Basic metabolic profile is normal and CBC is normal. Objective - Vital Signs Vital signs: Vital Signs Temp 98.0 F 02/27/20 08:00 Pulse 82 02/27/20 12:00 Resp 19 02/27/20 12:00 BP 119/99 02/27/20 12:00 Pulse Ox 92 L 02/27/20 12:00 Intake & Output 02/26/20 02/27/20 02/27/20 18:59 06:59 18:59 Intake Total 904 728 112 Output Total 735 1900 220 Balance 169 -1172 -108 Weight 97.6 kg 95.1 kg Intake: IV 904 728 112 CO/CI 20 Lactated Ringers 1,000 ml 550 650 100 @ 20 mls/hr IV .Q24H [facility] Rx#:[id number] Magnesium Sulfate-D5w Pmx 200 1 gm In Dextrose/Water 1 100ml.bag @ 100 mls/hr IVPB Q1H [facility] Rx#: [id number] Pressure bags 84 78 12 ceFAZolin 2 gm In Sodium 50 Chloride 0.9% 50 ml @ 100 mls/hr IVPB Q8HR [facility] Rx# :[id number] Intake, IV Titration 0 Amount Insulin Regular 100 unit 0 In Sodium Chloride 0.9% 100 ml @ Per Protocol IV .Q0M [facility] Rx#:[id number] Output: Chest Tube Drainage 80 190 40 Chest Tube Left Pleural/ 80 190 40 Mediastinal Urine 655 1710 180 Other: Voiding Method Indwelling Catheter Indwelling Catheter Indwelling Catheter # Bowel Movements 0 ABP, PAP, CO, CI - Last Documented Arterial Blood Pressure 130/64 Pulmonary Artery Pressure 28/10 Cardiac Output 4.3 Cardiac Index 2 - Exam GENERAL EXAM: Revealed 69-year-old white male on 3 L nasal cannula, in no distress.. HEAD: Normocephalic/atraumatic. ENT: PERRLA, EOMI, no icterus, no neck masses, no JVD. CHEST: No chest wall deformity. Symmetrical expansion. LUNGS: Equal air entry with no crackles, wheeze, rhonchi or dullness.Achieving 1000 mL on his incentive spirometry. Mediastinal and left pleural chest tubes remain in place to low continuous wall suction -20 cm H2O. No air leaks present. Draining thin serosanguineous drainage. 100 mL output in the last 8 hours and 330 mL output in the last 24 hours. CVS: Regular rate and rhythm, normal S1 and S2, no gallops, no murmurs, no rubs.Current CVP pressure 6 mmHg. Heart hugger is in place and he is demonstrating appropriate use. Knee-high TOPHER hose and sequential compression devices in place to his bilateral lower extremities. ABDOMEN: Soft, nontender. No hepatosplenomegaly, normal bowel sounds, no guarding or rigidity. EXTREMITIES: No clubbing, no edema, no cyanosis, 2+ pulses and upper and lower extremities. MUSCULOSKELETAL: Muscle strength and tone normal. SPINE: No scoliosis or deformity SKIN: No rashes CENTRAL NERVOUS SYSTEM: Alert and oriented 3, no gross deficits. PSYCHIATRIC: Normal mood, normal affect and normal mental status examination - Labs CBC & Chem 7: 02/27/20 04:20 02/27/20 04:20 Labs: Abnormal Lab Results - Last 24 Hours (Table) 02/26/20 02/26/20 02/26/20 Range/Units 14:39 16:40 18:34 Hgb (13.0-17.5) gm/dL Hct (39.0-53.0) % Plt Count (150-450) k/uL Lymphocytes # (1.0-4.8) k/uL Chloride (98-107) mmol/L Glucose (74-99) mg/dL POC Glucose (mg/dL) 125 H 114 H 119 H (75-99) mg/dL Calcium (8.4-10.2) mg/dL Total Protein (6.3-8.2) g/dL Albumin (3.5-5.0) g/dL 02/26/20 02/26/20 02/27/20 Range/Units 20:14 21:56 00:27 Hgb (13.0-17.5) gm/dL Hct (39.0-53.0) % Plt Count (150-450) k/uL Lymphocytes # (1.0-4.8) k/uL Chloride (98-107) mmol/L Glucose (74-99) mg/dL POC Glucose (mg/dL) 113 H 121 H 101 H (75-99) mg/dL Calcium (8.4-10.2) mg/dL Total Protein (6.3-8.2) g/dL Albumin (3.5-5.0) g/dL 02/27/20 02/27/20 02/27/20 Range/Units 01:51 04:09 04:20 Hgb 12.8 L (13.0-17.5) gm/dL Hct 38.8 L (39.0-53.0) % Plt Count 135 L (150-450) k/uL Lymphocytes # 0.5 L (1.0-4.8) k/uL Chloride (98-107) mmol/L Glucose (74-99) mg/dL POC Glucose (mg/dL) 102 H 110 H (75-99) mg/dL Calcium (8.4-10.2) mg/dL Total Protein (6.3-8.2) g/dL Albumin (3.5-5.0) g/dL 02/27/20 02/27/20 02/27/20 Range/Units 04:20 06:13 11:47 Hgb (13.0-17.5) gm/dL Hct (39.0-53.0) % Plt Count (150-450) k/uL Lymphocytes # (1.0-4.8) k/uL Chloride 108 H (98-107) mmol/L Glucose 110 H (74-99) mg/dL POC Glucose (mg/dL) 102 H 127 H (75-99) mg/dL Calcium 8.1 L (8.4-10.2) mg/dL Total Protein 5.1 L (6.3-8.2) g/dL Albumin 3.0 L (3.5-5.0) g/dL Assessment and Plan Assessment: Impression: Status post CABG, HERNDON to LAD, off pump. Postoperative day #2. Benign essential hypertension. Hfw-gcbougg-kcabjfwdj diabetes. GERD without esophagitis. Significant family history for premature coronary artery disease. Recommendation: Continue beta blockers Plavix aspirin and statin. Continue incentive spirometer. Ambulate as tolerated. Discontinue on necessary lines and catheters. Including IJ Cordis. And Lewis catheter. Discontinue chest tubes and mediastinal tubes once felt appropriate by thoracic surgery. Consider transferring the patient down to the stepdown unit. We will continue to follow. Time with Patient: Less than 30
[2020-02-27 16:53] LABS: Glucose,Whole Blood 134 mg/dL (75-99)
[2020-02-27] MEDS: SENNOSIDES-DOCUSATE SODIUM 1 EACH TAB PO SCH (20:30)
[2020-02-27] MEDS: MONTELUKAST 10 MG TAB PO SCH (20:30)
[2020-02-27 20:39] LABS: Glucose,Whole Blood 116 mg/dL (75-99)
--- NOTE | 2020-02-27 21:22 | P.PN ---
Subjective Patient is doing well postoperatively. He is coronary artery status post off pump bypass surgery with HERNDON to the LAD He has hypertension and dyslipidemia Sitting up in a chair. He was waiting for his chest tube, BUT SOMEWHAT NERVOUS ABOUT IT AND REASSURED HIM THAT HE WOULD FEEL A LOT BETTER AFTER THE CHEST TUBE WAS OUT HEART RATES ARE STABLE BLOOD PRESSURE IS NORMAL RHYTHM IS NORMAL BREATH SOUNDS ARE REDUCED BILATERALLY. HEART SOUNDS ARE DISTANT SOFT IMPRESSION CAD STATUS POST CORONARY BYPASS GRAFTING CONTINUE ICU MANAGEMENT POSTOP MANAGEMENT AND CONTINUE CURRENT CARDIAC MEDICATIONS CONTINUE DUAL ANTIPLATELET THERAPY STATINS AND BETA BLOCKERS. MAY INCREASE THE DOSE OF BETA BLOCKERS TOMORROW Objective - Vital Signs Vital signs: Vital Signs Temp 98.4 F 02/27/20 20:00 Pulse 92 02/27/20 21:00 Resp 17 02/27/20 21:00 BP 106/75 02/27/20 21:00 Pulse Ox 93 L 02/27/20 21:00 Intake & Output 02/27/20 02/27/20 02/28/20 06:59 18:59 06:59 Intake Total 728 172 20 Output Total 1900 520 Balance -1172 -348 20 Weight 95.1 kg Intake: IV 728 172 20 Lactated Ringers 1,000 ml 650 160 20 @ 20 mls/hr IV .Q24H [facility] Rx#:[id number] Pressure bags 78 12 Output: Chest Tube Drainage 190 40 Chest Tube Left Pleural/ 190 40 Mediastinal Urine 1710 480 Other: Voiding Method Indwelling Catheter Indwelling Catheter Indwelling Catheter # Bowel Movements 0 ABP, PAP, CO, CI - Last Documented Arterial Blood Pressure 130/64 Pulmonary Artery Pressure 28/10 Cardiac Output 4.3 Cardiac Index 2 - Labs CBC & Chem 7: 02/27/20 04:20 02/27/20 04:20 Labs: Abnormal Lab Results - Last 24 Hours (Table) 02/26/20 02/27/20 02/27/20 Range/Units 21:56 00:27 01:51 Hgb (13.0-17.5) gm/dL Hct (39.0-53.0) % Plt Count (150-450) k/uL Lymphocytes # (1.0-4.8) k/uL Chloride (98-107) mmol/L Glucose (74-99) mg/dL POC Glucose (mg/dL) 121 H 101 H 102 H (75-99) mg/dL Calcium (8.4-10.2) mg/dL Total Protein (6.3-8.2) g/dL Albumin (3.5-5.0) g/dL 02/27/20 02/27/20 02/27/20 Range/Units 04:09 04:20 04:20 Hgb 12.8 L (13.0-17.5) gm/dL Hct 38.8 L (39.0-53.0) % Plt Count 135 L (150-450) k/uL Lymphocytes # 0.5 L (1.0-4.8) k/uL Chloride 108 H (98-107) mmol/L Glucose 110 H (74-99) mg/dL POC Glucose (mg/dL) 110 H (75-99) mg/dL Calcium 8.1 L (8.4-10.2) mg/dL Total Protein 5.1 L (6.3-8.2) g/dL Albumin 3.0 L (3.5-5.0) g/dL 02/27/20 02/27/20 02/27/20 Range/Units 06:13 11:47 16:51 Hgb (13.0-17.5) gm/dL Hct (39.0-53.0) % Plt Count (150-450) k/uL Lymphocytes # (1.0-4.8) k/uL Chloride (98-107) mmol/L Glucose (74-99) mg/dL POC Glucose (mg/dL) 102 H 127 H 134 H (75-99) mg/dL Calcium (8.4-10.2) mg/dL Total Protein (6.3-8.2) g/dL Albumin (3.5-5.0) g/dL 02/27/20 Range/Units 20:34 Hgb (13.0-17.5) gm/dL Hct (39.0-53.0) % Plt Count (150-450) k/uL Lymphocytes # (1.0-4.8) k/uL Chloride (98-107) mmol/L Glucose (74-99) mg/dL POC Glucose (mg/dL) 116 H (75-99) mg/dL Calcium (8.4-10.2) mg/dL Total Protein (6.3-8.2) g/dL Albumin (3.5-5.0) g/dL
[2020-02-28] MEDS: KETOROLAC 15 MG/ML 1 ML VIAL IVP SCH ×5 (00:43→23:18)
[2020-02-28] MEDS: HEPARIN SODIUM,PORCINE 5,000 UNIT/ML 1 ML VIAL SQ SCH ×3 (03:39→20:41)
[2020-02-28 06:16] LABS: Glucose,Whole Blood 100 mg/dL (75-99)
[2020-02-28] MEDS: INSULIN ASPART (NovoLOG) 100 UNIT/ML VIAL SQ SCH ×4 (06:26→20:35)
[2020-02-28] MEDS: PANTOPRAZOLE 40 MG TABLET PO SCH (06:33)
[2020-02-28] MEDS: LEVOTHYROXINE 125 MCG TAB PO SCH (06:33)
[2020-02-28] MEDS ORDERED: METOCLOPRAMIDE 5 MG/ML 2 ML VIAL IVP STA (07:03)
--- NOTE | 2020-02-28 07:39 | XR ---
EXAMINATION TYPE: XR chest 2V DATE OF EXAM: 02/28/2020 COMPARISON: 02/27/2020 HISTORY: Shortness of breath TECHNIQUE: Frontal and lateral views of the chest are obtained. FINDINGS: Left-sided chest tube has been removed as well as mediastinal drain. There is no evidence for pneumot horax. Improved aeration about the perihilar and basilar regions. Mild residual basilar atelectasis a nd small effusions. Heart size is stable. Changes of median sternotomy and CABG. Mediastinal structures are stable and grossly unremarkable. No evidence for hilar prominence. Degenerative changes dorsal spine. IMPRESSION: 1. Left-sided chest tube has been removed as well as mediastinal drain. There is no evidence for pneu mothorax. Improved aeration about the perihilar and basilar regions. Mild residual basilar atelectasi s and small effusions.
[2020-02-28] MEDS: IPRATROPIUM-ALBUTEROL 3 ML NEB INHALATION SCH ×4 (08:03→20:49)
[2020-02-28 08:12] LABS: HCT 38.8 % (39.0-53.0); MCHC 33.6 g/dL (31.0-37.0); MCV 89.3 fL (80.0-100.0); Mean Platelet Volume 7.2; Platelet Count 176 k/uL (150-450); RBC 4.34 m/uL (4.30-5.90); RDW 13.2 % (11.5-15.5); WBC 8.1 k/uL (3.8-10.6)
[2020-02-28 08:22] LABS: African American GFR (CKD) >90 (>60 ml/min/1.73 sqM); Anion Gap 5 mmol/L; Blood Urea Nitrogen 24 mg/dL (9-20); Calcium 8.2 mg/dL (8.4-10.2); Carbon Dioxide 26 mmol/L (22-30); Chloride 108 mmol/L (98-107); Glucose 106 mg/dL (74-99); Non-African American GFR(CKD) 89 (>60 ml/min/1.73 sqM); Potassium 4.1 mmol/L (3.5-5.1); Sodium 139 mmol/L (137-145)
[2020-02-28] MEDS: ATORVASTATIN 40 MG TAB PO SCH (09:10)
[2020-02-28] MEDS: METOPROLOL TARTRATE 25 MG TAB PO SCH (09:10)
[2020-02-28] MEDS: ASPIRIN 325 MG TAB PO SCH (09:10)
[2020-02-28] MEDS: CLOPIDOGREL 75 MG TAB PO SCH (09:10)
[2020-02-28] MEDS ORDERED: METOPROLOL TARTRATE 25 MG TAB PO STA (09:20)
--- NOTE | 2020-02-28 09:55 | P.PN ---
Subjective Progress Note Date: 02/28/20 Principal diagnosis: Coronary artery disease. Past medical history significant for stenting to the LAD in August 2018, hypertension, hyperlipidemia, hypothyroidism, osteoarthritis, remote history of tobacco use, and family history of premature coronary artery disease. POD #3 off-pump coronary artery bypass grafting 1 with left internal mammary artery to the left anterior descending artery. The patient was seen in follow-up today 02/28/2020 to his bedside on the cardiac stepdown unit. Currently sitting up to the bedside chair, is awake, alert and oriented 3. Denies any complaints of pain or shortness of breath. The patient is tearing up all talking to him. He reports that he feels nervous about going home. His chest tubes were removed yesterday without incident. The patient reports that he has been up ambulating in the cardiac stepdown unit hallway with minimal assistance from nursing staff. He is tolerating oral intake. Remains hemodynamically stable. Oxygen saturations are 93% on room air and he is achieving 1250-59 mL on his incentive spirometry. Objective - Vital Signs Vital signs: Vital Signs Temp 98.0 F 02/28/20 09:20 Pulse 116 H 02/28/20 09:20 Resp 20 02/28/20 09:20 BP 130/84 02/28/20 09:20 Pulse Ox 93 L 02/28/20 09:20 Intake & Output 02/27/20 02/28/20 02/28/20 18:59 06:59 18:59 Intake Total 172 20 Output Total 520 500 Balance -348 -480 Weight 93.6 kg Intake: IV 172 20 Lactated Ringers 1,000 ml 160 20 @ 20 mls/hr IV .Q24H [facility] Rx#:[id number] Pressure bags 12 Output: Chest Tube Drainage 40 Chest Tube Left Pleural/ 40 Mediastinal Urine 480 500 Other: Voiding Method Indwelling Catheter Toilet # Voids 0 ABP, PAP, CO, CI - Last Documented Arterial Blood Pressure 130/64 Pulmonary Artery Pressure 28/10 Cardiac Output 4.3 Cardiac Index 2 - Constitutional General appearance: Present: average body habitus, cooperative, no acute distress - EENT Eyes: Present: PERRLA, normal appearance. Absent: scleral icterus ENT: Present: hearing grossly normal - Neck Details: Neck is supple, no JVD, no lymphadenopathy. - Respiratory Details: Lung sounds are essentially clear throughout, diminished to his bilateral bases. Respirations are symmetrical and nonlabored. Oxygen saturation are 93% on room air, achieving 150-5900 mL on his incentive spirometry with much encouragement. - Cardiovascular Details: Regular rhythm and rate. S1 and S2 present, negative for S3, gallop or murmur. Sternum is stable. Heart hugger is in place and is demonstrating appropriate use. Remote telemetry showing normal sinus rhythm heart rate 96 BPM. Knee-high TOPHER hose and sequential compression devices in place to his bilateral lower extremities. - Gastrointestinal Gastrointestinal Comment(s): Abdomen is soft, nontender and nondistended. Active bowel sounds present in all 4 abdominal quadrants. No guarding or rigidity. Tolerating oral intake. Passing flatus. - Genitourinary Genitourinary Comment(s): Continues to void. - Integumentary Integumentary Comment(s): Skin is warm and dry. No clubbing or cyanosis is present. Midline sternal incision is clean, dry and approximated. No drainage or redness is present. - Neurologic Neurologic: Present: CNII-XII intact - Musculoskeletal Musculoskeletal: Present: gait normal, generalized weakness, strength equal bilaterally - Psychiatric Psychiatric Comment(s): Flat affect Psychiatric: Present: A&O x's 3, intact judgment & insight - Allied health notes Allied health notes reviewed: nursing - Labs CBC & Chem 7: 02/28/20 07:17 02/28/20 07:17 Labs: Abnormal Lab Results - Last 24 Hours (Table) 02/27/20 02/27/20 02/27/20 Range/Units 11:47 16:51 20:34 Hct (39.0-53.0) % Chloride (98-107) mmol/L BUN (9-20) mg/dL Glucose (74-99) mg/dL POC Glucose (mg/dL) 127 H 134 H 116 H (75-99) mg/dL Calcium (8.4-10.2) mg/dL 02/28/20 02/28/20 02/28/20 Range/Units 06:10 07:17 07:17 Hct 38.8 L (39.0-53.0) % Chloride 108 H (98-107) mmol/L BUN 24 H (9-20) mg/dL Glucose 106 H (74-99) mg/dL POC Glucose (mg/dL) 100 H (75-99) mg/dL Calcium 8.2 L (8.4-10.2) mg/dL - Imaging and Cardiology Chest x-ray: report reviewed, image reviewed Assessment and Plan Assessment: 1. Coronary artery disease, history of stenting to the LAD in August 2018, status post off pump CABG HERNDON to the LAD 2. Hypertension 3. Hyperlipidemia 4. Hypothyroidism 5. Osteoarthritis 6. Remote history of tobacco use 7. Family history of premature coronary artery disease Plan: 1. Continue aspirin, statin, Plavix, beta bakari. Will increase metoprolol tartrate to 50 mg by mouth twice a day. 2. Wean O2 as tolerated. Encourage incentive spirometry use 10 times every hour while awake. Bronchodilators per pulmonology. 3. Increase activity, ambulate as tolerated. PT/OT/cardiac rehab following. 4. Will monitor daily labs and chest x-rays. Electrolyte replacement per protocol. 5. Insulin management per primary care service. Patient is not a diabetic, preoperative hemoglobin A1c 6%. 6. GI/DVT prophylaxis 7. Pain control with current medication regimen. 8. Discharge planning is in place. 9. More recommendations follow based on patient's clinical course. 10. Discharge planning is in place, anticipate discharge home within the next 24 hours. 11. More recommendations follow based on patient's clinical course. Time with Patient: Greater than 30
[2020-02-28 11:39] LABS: Glucose,Whole Blood 102 mg/dL (75-99)
--- NOTE | 2020-02-28 11:49 | P.PN ---
Subjective Progress Note Date: 02/28/20 HISTORY OF PRESENT ILLNESS: Patient is status post CABG 1 with HERNDON to LAD. Patient examined this morning the cardiac step down unit. He is sitting up in a chair. He denies chest pain or pressure. Denies shortness of breath. Patient has been ambulating in the hallway. Heart rate in the 90s. Per nursing the patients heart rate was up in the 130s with ambulation. PHYSICAL EXAM: VITAL SIGNS: Reviewed. GENERAL: Well-developed in no acute distress. NECK: Supple. No JVD or thyromegaly LUNGS: Respirations even and unlabored. Lungs diminished bilaterally. No crackles noted. HEART: Regular rate and rhythm. S1 and S2 heard. Heart hugger in place. EXTREMITIES: Normal range of motion. No clubbing or cyanosis. Peripheral pulses intact. No lower extremity edema ASSESSMENT: Coronary artery disease with previous stenting to the LAD, status post CABG 1 HERNDON to LAD Hypertension Hyperlipidemia Former nicotine dependence Family history of premature coronary artery disease PLAN: Continue current cardiac medications Increase metoprolol to 50 mg twice a day Increase activity as tolerated Encouraged continued use of incentive spirometer Further recommendations pending patient's course Nurse practitioner note has been reviewed by physician. Signing provider agrees with the documented findings, assessment, and plan of care. Objective - Vital Signs Vital signs: Vital Signs Temp 98.0 F 02/28/20 09:20 Pulse 98 02/28/20 11:18 Resp 20 02/28/20 09:20 BP 130/84 02/28/20 09:20 Pulse Ox 93 L 02/28/20 09:20 Intake & Output 02/27/20 02/28/20 02/28/20 18:59 06:59 18:59 Intake Total 172 20 Output Total 520 500 Balance -348 -480 Weight 93.6 kg Intake: IV 172 20 Lactated Ringers 1,000 ml 160 20 @ 20 mls/hr IV .Q24H [facility] Rx#:[id number] Pressure bags 12 Output: Chest Tube Drainage 40 Chest Tube Left Pleural/ 40 Mediastinal Urine 480 500 Other: Voiding Method Indwelling Catheter Toilet Toilet # Voids 0 1 ABP, PAP, CO, CI - Last Documented Arterial Blood Pressure 130/64 Pulmonary Artery Pressure 28/10 Cardiac Output 4.3 Cardiac Index 2 - Labs CBC & Chem 7: 02/28/20 07:17 02/28/20 07:17 Labs: Abnormal Lab Results - Last 24 Hours (Table) 02/27/20 02/27/20 02/27/20 Range/Units 11:47 16:51 20:34 Hct (39.0-53.0) % Chloride (98-107) mmol/L BUN (9-20) mg/dL Glucose (74-99) mg/dL POC Glucose (mg/dL) 127 H 134 H 116 H (75-99) mg/dL Calcium (8.4-10.2) mg/dL 02/28/20 02/28/20 02/28/20 Range/Units 06:10 07:17 07:17 Hct 38.8 L (39.0-53.0) % Chloride 108 H (98-107) mmol/L BUN 24 H (9-20) mg/dL Glucose 106 H (74-99) mg/dL POC Glucose (mg/dL) 100 H (75-99) mg/dL Calcium 8.2 L (8.4-10.2) mg/dL 02/28/20 Range/Units 11:37 Hct (39.0-53.0) % Chloride (98-107) mmol/L BUN (9-20) mg/dL Glucose (74-99) mg/dL POC Glucose (mg/dL) 102 H (75-99) mg/dL Calcium (8.4-10.2) mg/dL
[2020-02-28] MEDS: SERTRALINE 25 MG TAB PO SCH (12:45)
--- NOTE | 2020-02-28 15:46 | P.PN ---
Subjective Progress Note Date: 02/28/20 Principal diagnosis: Status post off-pump coronary artery bypass grafting 1, HERNDON to LAD, postoperative day #3 This is a 69-year-old white male patient has medical history of hypertension, hyperlipidemia, hypothyroidism, osteoarthritis, previous history of tobacco use, and family history of premature coronary artery disease. Patient had previous history of stenting to the LAD. Patient recently had elective heart catheterization with Dr. Andres after having exertional chest discomfort and shortness of breath for the previous 6 months that was similar to the chest discomfort prior to his stent placement. His heart catheterization revealed 99% stenosed to the proximal LAD. Echocardiogram from January 2020 revealed LV function with ejection fraction of 45-50% with grade 1 diastolic dysfunction, mild left ventricular hypertrophy, mild mitral regurg, with calcified mitral valve and mild tricuspid valve regurgitation on 02/26/2020 patient underwent single-vessel bypass surgery with the HERNDON to LAD, patient has done very well in the postoperative period, he was extubated within just a few hours from his OR exit time. Today is postoperative day 1, she is awake and alert, currently on 4 L of oxygen with a pulse ox of 95%, hemodynamically she is stable, he is in s inus mechanism, with a controlled rate, his IV includes LR at 30 ML per hour, nitroglycerin is at 5 mics per kilo per minute, insulin drip is at 0.5 units per hour, PA pressures 27/12, CVP is 5, cardiac output is 4.3, cardiac index is 2.0, patient has a left pleural and mediastinal chest tubes were connected together, with 550 ML of serosanguineous output in the last 24 hours, he is nonoliguric, h is incentive spirometry effort is about 500 on today's exam, and patient is having some incisional pain issues today, he's been medicated with Tylenol, IV Toradol, and [place]. Is currently on 4 L of oxygen and the pulse ox of 95%, chest x-ray today shows patchy perihilar infiltrate left lower lobe and left perihilar region. Vital signs have been stable, no fever or chills. Today's labs have been reviewed, showing limits, 8.9, hemoglobin of 13.8, sodium is 134, rest of electrolytes and renal profile were unremarkable Reevaluated today on 02/27/20, patient is postoperative day #2, patient is sitting in bed, denies any shortness of breath, denies any significant pain, he has some discomfort at the surgical site and at the site of chest tube insertion, he is on 3 L nasal cannula with O2 saturation of 94%. Achieving about 1000 ML on his incentive spirometry. Chest x-ray looks abnormal with interstitial edema, and left lower lobe atelectasis. Will likely improve with diuretics and with incentive spirometer. And it showed mostly postoperative findings, expected. Basic metabolic profile is normal and CBC is normal. Reevaluated today on 02/28/20, patient is postoperative day #3, off pump coronary artery bypass grafting times one HERNDON to LAD. Patient is on the cardiac stepdown unit, awake, alert, oriented, denies any shortness of breath, achieving over thousand cc on his incentive spirometry. Chest tubes were removed yesterday without incident. Patient is being assisted while ambulating in the room. He is tolerating oral intake well, and he is hemodynamically stable. CBC is normal and basic metabolic profile is normal. Chest x-ray showed improved aeration of the lungs bilaterally, mild residual basilar atelectasis. Objective - Vital Signs Vital signs: Vital Signs Temp 98.0 F 02/28/20 12:00 Pulse 96 02/28/20 15:25 Resp 18 02/28/20 14:00 BP 122/76 02/28/20 12:00 Pulse Ox 93 L 02/28/20 12:00 Intake & Output 02/27/20 02/28/20 02/28/20 18:59 06:59 18:59 Intake Total 172 20 236 Output Total 520 500 Balance -348 -480 236 Weight 93.6 kg Intake: IV 172 20 Lactated Ringers 1,000 ml 160 20 @ 20 mls/hr IV .Q24H [facility] Rx#:[id number] Pressure bags 12 Oral 236 Output: Chest Tube Drainage 40 Chest Tube Left Pleural/ 40 Mediastinal Urine 480 500 Other: Voiding Method Indwelling Catheter Toilet Toilet # Voids 0 2 # Bowel Movements 1 ABP, PAP, CO, CI - Last Documented Arterial Blood Pressure 130/64 Pulmonary Artery Pressure 28/10 Cardiac Output 4.3 Cardiac Index 2 - Exam GENERAL EXAM: Revealed 69-year-old white male on room air HEAD: Normocephalic/atraumatic. ENT: PERRLA, EOMI, no icterus, no neck masses, no JVD. CHEST: No chest wall deformity. Symmetrical expansion. LUNGS: Equal air entry with no crackles, wheeze, rhonchi or dullness. CVS: Regular rate and rhythm, normal S1 and S2, no gallops, no murmurs, no rubs. ABDOMEN: Soft, nontender. No hepatosplenomegaly, normal bowel sounds, no guarding or rigidity. EXTREMITIES: No clubbing, no edema, no cyanosis, 2+ pulses and upper and lower extremities. MUSCULOSKELETAL: Muscle strength and tone normal. SPINE: No scoliosis or deformity SKIN: No rashes CENTRAL NERVOUS SYSTEM: Alert and oriented 3, no gross deficits. PSYCHIATRIC: Normal mood, normal affect and normal mental status examination - Labs CBC & Chem 7: 02/28/20 07:17 02/28/20 07:17 Labs: Abnormal Lab Results - Last 24 Hours (Table) 02/27/20 02/27/20 02/28/20 Range/Units 16:51 20:34 06:10 Hct (39.0-53.0) % Chloride (98-107) mmol/L BUN (9-20) mg/dL Glucose (74-99) mg/dL POC Glucose (mg/dL) 134 H 116 H 100 H (75-99) mg/dL Calcium (8.4-10.2) mg/dL 02/28/20 02/28/20 02/28/20 Range/Units 07:17 07:17 11:37 Hct 38.8 L (39.0-53.0) % Chloride 108 H (98-107) mmol/L BUN 24 H (9-20) mg/dL Glucose 106 H (74-99) mg/dL POC Glucose (mg/dL) 102 H (75-99) mg/dL Calcium 8.2 L (8.4-10.2) mg/dL Assessment and Plan Assessment: Impression: Status post CABG, HERNDON to LAD, off pump. Postoperative day #3 Benign essential hypertension. [id number] diabetes. GERD without esophagitis. Significant family history for premature coronary artery disease. Postoperative atelectasis, expected. Recommendation: Continue beta blockers Plavix aspirin and statin. Continue incentive spirometer. Continue ambulation, Consider discharge planning in the next 24 hours. We will continue to follow. Time with Patient: Less than 30
[2020-02-28 16:38] LABS: Glucose,Whole Blood 106 mg/dL (75-99)
[2020-02-28] MEDS ORDERED: diphenhydrAMINE 25 MG CAP PO PRN (19:11)
[2020-02-28 20:36] LABS: Glucose,Whole Blood 110 mg/dL (75-99)
[2020-02-28] MEDS: METOPROLOL TARTRATE 50 MG TAB PO SCH (20:41)
[2020-02-28] MEDS: MONTELUKAST 10 MG TAB PO SCH (20:41)
[2020-02-28] MEDS: SENNOSIDES-DOCUSATE SODIUM 1 EACH TAB PO SCH (20:41)
[2020-02-28] MEDS: TRIAMCINOLONE 0.1% CREAM 80 GM TUBE TOPICAL SCH (20:41)
--- NOTE | 2020-02-28 22:43 | P.PN ---
Subjective Progress Note Date: 02/26/20 Principal diagnosis: Status post triple-vessel coronary artery bypass graft. Patient is a 69-year-old male with a known history of coronary artery disease status post stent placement, hypertension, hyperlipidemia, osteoarthritis, GERD, deafness/hearing disorder, no history of prior smoking and history of hernia surgeries and right knee meniscus repair and 2 back surgeries who was admitted recently with recurrent chest pains. Patient underwent cardiac catheterization on 02/18/2020 showed proximal LAD lesion 50%, mid LAD 80% stenosis and distal LAD stenosis 50 to 60% and several branch of OM1 with 90% stenosis and a right coronary occlusion distally with mild to moderate disease in the proximal to midportion. Patient had stent placement and due to multivessel coronary disease patient was seen by CT surgery and recommended revascularization. Patient had preoperative work-up done and was admitted to the hospital for coronary artery bypass graft. Patient underwent three-vessel coronary artery bypass graft today. Patient was intubated preoperatively and was transferred to MICU. Currently patient is awake and alert and follows simple commands. Still intubated and is planning for extubation today. ABG showed pH 7.37, PCO2 47, PO2 246 Laboratory data reviewed. Blood sugar is 127, BUN 14 and creatinine 0.78 albumin 3.2 02/26/2020 currently sitting in the chair comfortably. Soreness at the surgical site. Otherwise denies any shortness of breath. Tolerating oral diet. Blood sugar is controlled. Currently insulin drip for better blood sugar control. Solo paredes has been afebrile. Chest tubes in place. Laboratory data showed sodium 134, potassium 3.7, BUN 14 and creatinine 0.77 and magnesium is 1.5 Chest x-ray showed stable portable chest. Clinical correlation and follow-up on the liver lesion is recommended. Patchy perihilar infiltrate left lower lobe and left perihilar region persists. Patient is being continued aspirin statins and Plavix. Current medications reviewed. Objective - Vital Signs Vital signs: Vital Signs Temp 99.0 F 02/26/20 11:00 Pulse 65 02/26/20 11:00 Resp 16 02/26/20 11:00 BP 125/68 02/26/20 11:00 Pulse Ox 96 02/26/20 11:00 Intake & Output 02/25/20 02/26/20 02/26/20 18:59 06:59 18:59 Intake Total 835.008 4499.225 565 Output Total 2060 1275 145 Balance -1475.083 -136.775 420 Weight 97.6 kg Intake: IV 554 1073 565 ACETAMINOPHEN IV (For NPO 100 ) 1,000 mg In Empty Bag 1 bag @ 400 mls/hr IVPB Q6HR [facility] Rx#:[id number] Albumin Human 5% 250 ml 250 In Empty Bag 1 bag @ 250 mls/hr IVPB Q1HR PRN Rx#: [id number] CO/CI 60 20 Lactated Ringers 1,000 ml 400 600 250 @ 20 mls/hr IV .Q24H [facility] Rx#:[id number] Magnesium Sulfate-D5w Pmx 200 1 gm In Dextrose/Water 1 100ml.bag @ 100 mls/hr IVPB Q1H [facility] Rx#: [id number] Pressure bags 63 45 ceFAZolin 2 gm In Sodium 50 100 50 Chloride 0.9% 50 ml @ 100 mls/hr IVPB Q8HR [facility] Rx# :[id number] Intake, IV Titration 30.917 65.225 0 Amount Clevidipine Butyrate 25 26.633 57.667 mg In Empty Bag 1 bag @ 1 MG/HR 2 mls/hr IV .Q24H [facility] Rx#:[id number] Insulin Regular 100 unit 4.284 7.558 0 In Sodium Chloride 0.9% 100 ml @ Per Protocol IV .Q0M [facility] Rx#:[id number] Output: Chest Tube Drainage 300 250 30 Chest Tube Left Pleural/ 300 250 30 Mediastinal Urine 1460 1025 115 Estimated Blood Loss 300 Other: Voiding Method Indwelling Catheter Indwelling Catheter Indwelling Catheter # Voids 1 ABP, PAP, CO, CI - Last Documented Arterial Blood Pressure 111/72 Pulmonary Artery Pressure 28/10 Cardiac Output 4.3 Cardiac Index 2 - Exam PHYSICAL EXAMINATION: Patient is lying in the bed comfortably, no acute distress, awake alert and 0riented. HEENT: Normocephalic. Neck is supple. Pupils reactive. Nostrils clear. Oral c avity is moist. Ears reveal no drainage. Neck reveals no JVD, carotid bruits, or thyromegaly. CHEST EXAMINATION: Trachea is central. Symmetrical expansion.Bibasilar diminished air entry. No wheezing. Lung callahan clear to auscultation and percussion. CARDIAC: Normal S1, S2 with no gallops. No murmurs ABDOMEN: Soft. Bowel sounds normal. No organomegaly. No abdominal bruits. Extremities: reveal no edema. No clubbing or cyanosis Neurologically awake, alert, oriented x3 with well-coordinated movements. No focal deficits noted Skin: No rash or skin lesions. Psychiatric: Coperative. Musculoskeletal: No joint swelling or deformity. Normal range of motion. - Labs CBC & Chem 7: 02/28/20 07:17 02/28/20 07:17 Labs: Abnormal Lab Results - Last 24 Hours (Table) 02/23/20 02/25/20 02/25/20 Range/Units 10:12 11:30 11:30 WBC (3.8-10.6) k/uL RBC 4.29 L (4.30-5.90) m/uL Hgb 12.5 L D (13.0-17.5) gm/dL Hct 37.8 L (39.0-53.0) % Neutrophils # (1.3-7.7) k/uL Lymphocytes # (1.0-4.8) k/uL ABG pCO2 (35-45) mmHg ABG pO2 (83-108) mmHg ABG HCO3 (21-25) mmol/L ABG Total CO2 (19-24) mmol/L ABG O2 Saturation (94-97) % Sodium (137-145) mmol/L Chloride 108 H (98-107) mmol/L Glucose 127 H (74-99) mg/dL POC Glucose (mg/dL) (75-99) mg/dL Calcium (8.4-10.2) mg/dL Ionized Calcium [place] 5.4 H (4.5-5.3) mg/dL Magnesium (1.6-2.3) mg/dL Total Protein 5.1 L (6.3-8.2) g/dL Albumin 3.2 L (3.5-5.0) g/dL Crossmatch See Detail 02/25/20 02/25/20 02/25/20 Range/Units 11:49 12:08 13:08 WBC (3.8-10.6) k/uL RBC (4.30-5.90) m/uL Hgb (13.0-17.5) gm/dL Hct (39.0-53.0) % Neutrophils # (1.3-7.7) k/uL Lymphocytes # (1.0-4.8) k/uL ABG pCO2 47 H (35-45) mmHg ABG pO2 246 H (83-108) mmHg ABG HCO3 27 H (21-25) mmol/L ABG Total CO2 29 H (19-24) mmol/L ABG O2 Saturation 100.0 H (94-97) % Sodium (137-145) mmol/L Chloride (98-107) mmol/L Glucose (74-99) mg/dL POC Glucose (mg/dL) 114 H 118 H (75-99) mg/dL Calcium (8.4-10.2) mg/dL Ionized Calcium [place] (4.5-5.3) mg/dL Magnesium (1.6-2.3) mg/dL Total Protein (6.3-8.2) g/dL Albumin (3.5-5.0) g/dL Crossmatch 02/25/20 02/25/20 02/25/20 Range/Units 13:45 13:49 14:25 WBC 12.7 H (3.8-10.6) k/uL RBC (4.30-5.90) m/uL Hgb (13.0-17.5) gm/dL Hct (39.0-53.0) % Neutrophils # 10.4 H (1.3-7.7) k/uL Lymphocytes # (1.0-4.8) k/uL ABG pCO2 (35-45) mmHg ABG pO2 (83-108) mmHg ABG HCO3 27 H (21-25) mmol/L ABG Total CO2 28 H (19-24) mmol/L ABG O2 Saturation (94-97) % Sodium (137-145) mmol/L Chloride (98-107) mmol/L Glucose (74-99) mg/dL POC Glucose (mg/dL) 146 H (75-99) mg/dL Calcium (8.4-10.2) mg/dL Ionized Calcium [place] (4.5-5.3) mg/dL Magnesium (1.6-2.3) mg/dL Total Protein (6.3-8.2) g/dL Albumin (3.5-5.0) g/dL Crossmatch 02/25/20 02/25/20 02/25/20 Range/Units 15:10 16:07 17:00 WBC 14.2 H (3.8-10.6) k/uL RBC (4.30-5.90) m/uL Hgb (13.0-17.5) gm/dL Hct (39.0-53.0) % Neutrophils # 12.9 H (1.3-7.7) k/uL Lymphocytes # 0.4 L (1.0-4.8) k/uL ABG pCO2 (35-45) mmHg ABG pO2 (83-108) mmHg ABG HCO3 (21-25) mmol/L ABG Total CO2 (19-24) mmol/L ABG O2 Saturation (94-97) % Sodium (137-145) mmol/L Chloride (98-107) mmol/L Glucose (74-99) mg/dL POC Glucose (mg/dL) 146 H 121 H (75-99) mg/dL Calcium (8.4-10.2) mg/dL Ionized Calcium [place] (4.5-5.3) mg/dL Magnesium (1.6-2.3) mg/dL Total Protein (6.3-8.2) g/dL Albumin (3.5-5.0) g/dL Crossmatch 02/25/20 02/25/20 02/25/20 Range/Units 17:03 18:11 19:09 WBC (3.8-10.6) k/uL RBC (4.30-5.90) m/uL Hgb (13.0-17.5) gm/dL Hct (39.0-53.0) % Neutrophils # (1.3-7.7) k/uL Lymphocytes # (1.0-4.8) k/uL ABG pCO2 (35-45) mmHg ABG pO2 (83-108) mmHg ABG HCO3 (21-25) mmol/L ABG Total CO2 (19-24) mmol/L ABG O2 Saturation (94-97) % Sodium (137-145) mmol/L Chloride (98-107) mmol/L Glucose (74-99) mg/dL POC Glucose (mg/dL) 139 H 127 H 104 H (75-99) mg/dL Calcium (8.4-10.2) mg/dL Ionized Calcium [place] (4.5-5.3) mg/dL Magnesium (1.6-2.3) mg/dL Total Protein (6.3-8.2) g/dL Albumin (3.5-5.0) g/dL Crossmatch 02/25/20 02/25/20 02/25/20 Range/Units 20:02 21:09 22:08 WBC (3.8-10.6) k/uL RBC (4.30-5.90) m/uL Hgb (13.0-17.5) gm/dL Hct (39.0-53.0) % Neutrophils # (1.3-7.7) k/uL Lymphocytes # (1.0-4.8) k/uL ABG pCO2 (35-45) mmHg ABG pO2 (83-108) mmHg ABG HCO3 (21-25) mmol/L ABG Total CO2 (19-24) mmol/L ABG O2 Saturation (94-97) % Sodium (137-145) mmol/L Chloride (98-107) mmol/L Glucose (74-99) mg/dL POC Glucose (mg/dL) 102 H 133 H 131 H (75-99) mg/dL Calcium (8.4-10.2) mg/dL Ionized Calcium [place] (4.5-5.3) mg/dL Magnesium (1.6-2.3) mg/dL Total Protein (6.3-8.2) g/dL Albumin (3.5-5.0) g/dL Crossmatch 02/25/20 02/26/20 02/26/20 Range/Units 23:01 00:07 01:06 WBC (3.8-10.6) k/uL RBC (4.30-5.90) m/uL Hgb (13.0-17.5) gm/dL Hct (39.0-53.0) % Neutrophils # (1.3-7.7) k/uL Lymphocytes # (1.0-4.8) k/uL ABG pCO2 (35-45) mmHg ABG pO2 (83-108) mmHg ABG HCO3 (21-25) mmol/L ABG Total CO2 (19-24) mmol/L ABG O2 Saturation (94-97) % Sodium (137-145) mmol/L Chloride (98-107) mmol/L Glucose (74-99) mg/dL POC Glucose (mg/dL) 130 H 117 H 119 H (75-99) mg/dL Calcium (8.4-10.2) mg/dL Ionized Calcium [place] (4.5-5.3) mg/dL Magnesium (1.6-2.3) mg/dL Total Protein (6.3-8.2) g/dL Albumin (3.5-5.0) g/dL Crossmatch 02/26/20 02/26/20 02/26/20 Range/Units 02:03 03:04 04:15 WBC (3.8-10.6) k/uL RBC (4.30-5.90) m/uL Hgb (13.0-17.5) gm/dL Hct (39.0-53.0) % Neutrophils # (1.3-7.7) k/uL Lymphocytes # 0.7 L (1.0-4.8) k/uL ABG pCO2 (35-45) mmHg ABG pO2 (83-108) mmHg ABG HCO3 (21-25) mmol/L ABG Total CO2 (19-24) mmol/L ABG O2 Saturation (94-97) % Sodium (137-145) mmol/L Chloride (98-107) mmol/L Glucose (74-99) mg/dL POC Glucose (mg/dL) 115 H 108 H (75-99) mg/dL Calcium (8.4-10.2) mg/dL Ionized Calcium [place] (4.5-5.3) mg/dL Magnesium (1.6-2.3) mg/dL Total Protein (6.3-8.2) g/dL Albumin (3.5-5.0) g/dL Crossmatch 02/26/20 02/26/20 02/26/20 Range/Units 04:15 04:18 05:16 WBC (3.8-10.6) k/uL RBC (4.30-5.90) m/uL Hgb (13.0-17.5) gm/dL Hct (39.0-53.0) % Neutrophils # (1.3-7.7) k/uL Lymphocytes # (1.0-4.8) k/uL ABG pCO2 (35-45) mmHg ABG pO2 (83-108) mmHg ABG HCO3 (21-25) mmol/L ABG Total CO2 (19-24) mmol/L ABG O2 Saturation (94-97) % Sodium 134 L (137-145) mmol/L Chloride (98-107) mmol/L Glucose 124 H (74-99) mg/dL POC Glucose (mg/dL) 122 H 123 H (75-99) mg/dL Calcium 8.3 L (8.4-10.2) mg/dL Ionized Calcium [place] (4.5-5.3) mg/dL Magnesium 1.5 L (1.6-2.3) mg/dL Total Protein 5.2 L (6.3-8.2) g/dL Albumin 3.2 L (3.5-5.0) g/dL Crossmatch 02/26/20 02/26/20 02/26/20 Range/Units 07:05 08:25 09:26 WBC (3.8-10.6) k/uL RBC (4.30-5.90) m/uL Hgb (13.0-17.5) gm/dL Hct (39.0-53.0) % Neutrophils # (1.3-7.7) k/uL Lymphocytes # (1.0-4.8) k/uL ABG pCO2 (35-45) mmHg ABG pO2 (83-108) mmHg ABG HCO3 (21-25) mmol/L ABG Total CO2 (19-24) mmol/L ABG O2 Saturation (94-97) % Sodium (137-145) mmol/L Chloride (98-107) mmol/L Glucose (74-99) mg/dL POC Glucose (mg/dL) 129 H 150 H 138 H (75-99) mg/dL Calcium (8.4-10.2) mg/dL Ionized Calcium [place] (4.5-5.3) mg/dL Magnesium (1.6-2.3) mg/dL Total Protein (6.3-8.2) g/dL Albumin (3.5-5.0) g/dL Crossmatch 02/26/20 Range/Units 10:21 WBC (3.8-10.6) k/uL RBC (4.30-5.90) m/uL Hgb (13.0-17.5) gm/dL Hct (39.0-53.0) % Neutrophils # (1.3-7.7) k/uL Lymphocytes # (1.0-4.8) k/uL ABG pCO2 (35-45) mmHg ABG pO2 (83-108) mmHg ABG HCO3 (21-25) mmol/L ABG Total CO2 (19-24) mmol/L ABG O2 Saturation (94-97) % Sodium (137-145) mmol/L Chloride (98-107) mmol/L Glucose (74-99) mg/dL POC Glucose (mg/dL) 130 H (75-99) mg/dL Calcium (8.4-10.2) mg/dL Ionized Calcium [place] (4.5-5.3) mg/dL Magnesium (1.6-2.3) mg/dL Total Protein (6.3-8.2) g/dL Albumin (3.5-5.0) g/dL Crossmatch Assessment and Plan Assessment: Status post triple-vessel coronary artery bypass graft. Postoperative day 1. on mechanical ventilator expected from surgery, extubated now. Triple-vessel coronary disease with recent non-ST elevated ME and stent placement Hypertension Diabetes type 2 [id number] Family history of coronary artery disease History of hernia surgery and back surgeries and meniscal repair surgeries. No history of prior smoking DVT prophylaxis Plan: Patient will be continued on telemetry monitoring. off mechanical ventilator. Currently on insulin drip for blood sugar control. Patient will be continued aspirin, statins. Continue with current management and further recommendations based on the clinical course. Time with Patient: Greater than 30
--- NOTE | 2020-02-28 22:47 | P.PN ---
Subjective Progress Note Date: 02/27/20 Principal diagnosis: Status post triple-vessel coronary artery bypass graft. Patient is a 69-year-old male with a known history of coronary artery disease status post stent placement, hypertension, hyperlipidemia, osteoarthritis, GERD, deafness/hearing disorder, no history of prior smoking and history of hernia surgeries and right knee meniscus repair and 2 back surgeries who was admitted recently with recurrent chest pains. Patient underwent cardiac catheterization on 02/18/2020 showed proximal LAD lesion 50%, mid LAD 80% stenosis and distal LAD stenosis 50 to 60% and several branch of OM1 with 90% stenosis and a right coronary occlusion distally with mild to moderate disease in the proximal to midportion. Patient had stent placement and due to multivessel coronary disease patient was seen by CT surgery and recommended revascularization. Patient had preoperative work-up done and was admitted to the hospital for coronary artery bypass graft. Patient underwent three-vessel coronary artery bypass graft today. Patient was intubated preoperatively and was transferred to MICU. Currently patient is awake and alert and follows simple commands. Still intubated and is planning for extubation today. ABG showed pH 7.37, PCO2 47, PO2 246 Laboratory data reviewed. Blood sugar is 127, BUN 14 and creatinine 0.78 albumin 3.2 02/26/2020 currently sitting in the chair comfortably. Soreness at the surgical site. Otherwise denies any shortness of breath. Tolerating oral diet. Blood sugar is controlled. Currently insulin drip for better blood sugar control. Solo paredes has been afebrile. Chest tubes in place. Laboratory data showed sodium 134, potassium 3.7, BUN 14 and creatinine 0.77 and magnesium is 1.5 Chest x-ray showed stable portable chest. Clinical correlation and follow-up on the liver lesion is recommended. Patchy perihilar infiltrate left lower lobe and left perihilar region persists. Patient is being continued aspirin statins and Plavix. 02/27/20 Patient is currently lying in the bed comfortably. No complaints of chest pain or significant shortness of breath. Currently on oxygen via nasal cannula. Chest x-ray showed diffuse bilateral infiltrate and pleural if lesion correlate for CHF. Versus pneumonia. Patient has been afebrile. Laboratory data showed WBC 7.3, hemoglobin 12.8 and platelets 135 BUN 16 and creatinine 0.79 Patient is being transferred to medical floor today. Current medications reviewed. Objective - Vital Signs Vital signs: Vital Signs Temp 98.4 F 02/27/20 16:00 Pulse 85 02/27/20 16:00 Resp 12 02/27/20 16:00 BP 115/74 02/27/20 16:00 Pulse Ox 93 L 02/27/20 16:00 Intake & Output 02/26/20 02/27/20 02/27/20 18:59 06:59 18:59 Intake Total 904 728 172 Output Total 735 1900 520 Balance 169 1172 -348 Weight 97.6 kg 95.1 kg Intake: IV 904 728 172 CO/CI 20 Lactated Ringers 1,000 ml 550 650 160 @ 20 mls/hr IV .Q24H [facility] Rx#:[id number] Magnesium Sulfate-D5w Pmx 200 1 gm In Dextrose/Water 1 100ml.bag @ 100 mls/hr IVPB Q1H [facility] Rx#: [id number] Pressure bags 84 78 12 ceFAZolin 2 gm In Sodium 50 Chloride 0.9% 50 ml @ 100 mls/hr IVPB Q8HR [facility] Rx# :[id number] Intake, IV Titration 0 Amount Insulin Regular 100 unit 0 In Sodium Chloride 0.9% 100 ml @ Per Protocol IV .Q0M [facility] Rx#:[id number] Output: Chest Tube Drainage 80 190 40 Chest Tube Left Pleural/ 80 190 40 Mediastinal Urine 655 1710 480 Other: Voiding Method Indwelling Catheter Indwelling Catheter Indwelling Catheter # Bowel Movements 0 ABP, PAP, CO, CI - Last Documented Arterial Blood Pressure 130/64 Pulmonary Artery Pressure 28/10 Cardiac Output 4.3 Cardiac Index 2 - Exam PHYSICAL EXAMINATION: Patient is lying in the bed comfortably, no acute distress, awake alert and 0ri ented. HEENT: Normocephalic. Neck is supple. Pupils reactive. Nostrils clear. Oral cavi ty is moist. Ears reveal no drainage. Neck reveals no JVD, carotid bruits, or thyromegaly. CHEST EXAMINATION: Trachea is central. Symmetrical expansion.Bibasilar diminished air entry. No wheezing. Lung callahan clear to auscultation and percussion. CARDIAC: Normal S1, S2 with no gallops. No murmurs ABDOMEN: Soft. Bowel sounds normal. No organomegaly. No abdominal bruits. Extremities: reveal no edema. No clubbing or cyanosis Neurologically awake, alert, oriented x3 with well-coordinated movements. No focal deficits noted Skin: No rash or skin lesions. Psychiatric: Coperative. Musculoskeletal: No joint swelling or deformity. Normal range of motion. - Labs CBC & Chem 7: 02/28/20 07:17 02/28/20 07:17 Labs: Abnormal Lab Results - Last 24 Hours (Table) 02/26/20 02/26/20 02/26/20 Range/Units 18:34 20:14 21:56 Hgb (13.0-17.5) gm/dL Hct (39.0-53.0) % Plt Count (150-450) k/uL Lymphocytes # (1.0-4.8) k/uL Chloride (98-107) mmol/L Glucose (74-99) mg/dL POC Glucose (mg/dL) 119 H 113 H 121 H (75-99) mg/dL Calcium (8.4-10.2) mg/dL Total Protein (6.3-8.2) g/dL Albumin (3.5-5.0) g/dL 02/27/20 02/27/20 02/27/20 Range/Units 00:27 01:51 04:09 Hgb (13.0-17.5) gm/dL Hct (39.0-53.0) % Plt Count (150-450) k/uL Lymphocytes # (1.0-4.8) k/uL Chloride (98-107) mmol/L Glucose (74-99) mg/dL POC Glucose (mg/dL) 101 H 102 H 110 H (75-99) mg/dL Calcium (8.4-10.2) mg/dL Total Protein (6.3-8.2) g/dL Albumin (3.5-5.0) g/dL 02/27/20 02/27/20 02/27/20 Range/Units 04:20 04:20 06:13 Hgb 12.8 L (13.0-17.5) gm/dL Hct 38.8 L (39.0-53.0) % Plt Count 135 L (150-450) k/uL Lymphocytes # 0.5 L (1.0-4.8) k/uL Chloride 108 H (98-107) mmol/L Glucose 110 H (74-99) mg/dL POC Glucose (mg/dL) 102 H (75-99) mg/dL Calcium 8.1 L (8.4-10.2) mg/dL Total Protein 5.1 L (6.3-8.2) g/dL Albumin 3.0 L (3.5-5.0) g/dL 02/27/20 02/27/20 Range/Units 11:47 16:51 Hgb (13.0-17.5) gm/dL Hct (39.0-53.0) % Plt Count (150-450) k/uL Lymphocytes # (1.0-4.8) k/uL Chloride (98-107) mmol/L Glucose (74-99) mg/dL POC Glucose (mg/dL) 127 H 134 H (75-99) mg/dL Calcium (8.4-10.2) mg/dL Total Protein (6.3-8.2) g/dL Albumin (3.5-5.0) g/dL Assessment and Plan Assessment: Status post triple-vessel coronary artery bypass graft. Postoperative day 2. on mechanical ventilator expected from surgery, extubated now. Triple-vessel coronary disease with recent non-ST elevated DC and stent placement Hypertension Diabetes type 2 [id number] Family history of coronary artery disease History of hernia surgery and back surgeries and meniscal repair surgeries. No history of prior smoking DVT prophylaxis Plan: Patient will be continued on telemetry monitoring. off mechanical ventilator. Currently on insulin drip for blood sugar control. Patient will be continued aspirin, statins. Continue with current management and further recommendations based on the clinical course. Time with Patient: Greater than 30
--- NOTE | 2020-02-28 22:49 | P.PN ---
Subjective Progress Note Date: 02/28/20 Principal diagnosis: Status post triple-vessel coronary artery bypass graft. Patient is a 69-year-old male with a known history of coronary artery disease status post stent placement, hypertension, hyperlipidemia, osteoarthritis, GERD, deafness/hearing disorder, no history of prior smoking and history of hernia surgeries and right knee meniscus repair and 2 back surgeries who was admitted recently with recurrent chest pains. Patient underwent cardiac catheterization on 02/18/2020 showed proximal LAD lesion 50%, mid LAD 80% stenosis and distal LAD stenosis 50 to 60% and several branch of OM1 with 90% stenosis and a right coronary occlusion distally with mild to moderate disease in the proximal to midportion. Patient had stent placement and due to multivessel coronary disease patient was seen by CT surgery and recommended revascularization. Patient had preoperative work-up done and was admitted to the hospital for coronary artery bypass graft. Patient underwent three-vessel coronary artery bypass graft today. Patient was intubated preoperatively and was transferred to MICU. Currently patient is awake and alert and follows simple commands. Still intubated and is planning for extubation today. ABG showed pH 7.37, PCO2 47, PO2 246 Laboratory data reviewed. Blood sugar is 127, BUN 14 and creatinine 0.78 albumin 3.2 02/26/2020 currently sitting in the chair comfortably. Soreness at the surgical site. Otherwise denies any shortness of breath. Tolerating oral diet. Blood sugar is controlled. Currently insulin drip for better blood sugar control. Solo paredes has been afebrile. Chest tubes in place. Laboratory data showed sodium 134, potassium 3.7, BUN 14 and creatinine 0.77 and magnesium is 1.5 Chest x-ray showed stable portable chest. Clinical correlation and follow-up on the liver lesion is recommended. Patchy perihilar infiltrate left lower lobe and left perihilar region persists. Patient is being continued aspirin statins and Plavix. 02/27/20 Patient is currently lying in the bed comfortably. No complaints of chest pain or significant shortness of breath. Currently on oxygen via nasal cannula. Chest x-ray showed diffuse bilateral infiltrate and pleural if lesion correlate for CHF. Versus pneumonia. Patient has been afebrile. Laboratory data showed WBC 7.3, hemoglobin 12.8 and platelets 135 BUN 16 and creatinine 0.79 Patient is being transferred to medical floor today. 02/28/2020 Patient is currently lying in bed comfortably. Transferred from ICU to telemetry unit. Denied any complaints of chest pain or shortness breath. Able to ambulate. Chest x-ray showed improved aeration of the lungs bilaterally. Mild residual basilar atelectasis. Metoprolol dose increased to 50 mg. Tachycardia with ambulation. Patient is being continued on heparin subcu for DVT prophylaxis. Laboratory data reviewed showed WBC 8.1, hemoglobin 13.0, BUN 24 and creatinine 0.83 blood sugars controlled with SSI Current medications reviewed. Objective - Vital Signs Vital signs: Vital Signs Temp 98.0 F 02/28/20 12:00 Pulse 91 02/28/20 14:00 Resp 18 02/28/20 14:00 BP 122/76 02/28/20 12:00 Pulse Ox 93 L 02/28/20 12:00 Intake & Output 02/27/20 02/28/20 02/28/20 18:59 06:59 18:59 Intake Total 172 20 Output Total 520 500 Balance -348 -480 Weight 93.6 kg Intake: IV 172 20 Lactated Ringers 1,000 ml 160 20 @ 20 mls/hr IV .Q24H [facility] Rx#:[id number] Pressure bags 12 Output: Chest Tube Drainage 40 Chest Tube Left Pleural/ 40 Mediastinal Urine 480 500 Other: Voiding Method Indwelling Catheter Toilet Toilet # Voids 0 1 # Bowel Movements 1 ABP, PAP, CO, CI - Last Documented Arterial Blood Pressure 130/64 Pulmonary Artery Pressure 28/10 Cardiac Output 4.3 Cardiac Index 2 - Exam PHYSICAL EXAMINATION: Patient is lying in the bed comfortably, no acute distress, awake alert and 0riented. HEENT: Normocephalic. Neck is supple. Pupils reactive. Nostrils clear. Oral cavity is moist. Ears reveal no drainage. Neck reveals no JVD, carotid bruits, or thyromegaly. CHEST EXAMINATION: Trachea is central. Symmetrical expansion.Bibasilar diminished air entry. No wheezing. Lung callahan clear to auscultation and percussion. CARDIAC: Normal S1, S2 with no gallops. No murmurs ABDOMEN: Soft. Bowel sounds normal. No organomegaly. No abdominal bruits. Extremities: reveal no edema. No clubbing or cyanosis Neurologically awake, alert, oriented x3 with well-coordinated movements. No focal deficits noted Skin: No rash or skin lesions. Psychiatric: Coperative. Musculoskeletal: No joint swelling or deformity. Normal range of motion. - Labs CBC & Chem 7: 02/28/20 07:17 02/28/20 07:17 Labs: Abnormal Lab Results - Last 24 Hours (Table) 02/27/20 02/27/20 02/28/20 Range/Units 16:51 20:34 06:10 Hct (39.0-53.0) % Chloride (98-107) mmol/L BUN (9-20) mg/dL Glucose (74-99) mg/dL POC Glucose (mg/dL) 134 H 116 H 100 H (75-99) mg/dL Calcium (8.4-10.2) mg/dL 02/28/20 02/28/20 02/28/20 Range/Units 07:17 07:17 11:37 Hct 38.8 L (39.0-53.0) % Chloride 108 H (98-107) mmol/L BUN 24 H (9-20) mg/dL Glucose 106 H (74-99) mg/dL POC Glucose (mg/dL) 102 H (75-99) mg/dL Calcium 8.2 L (8.4-10.2) mg/dL Assessment and Plan Assessment: Status post triple-vessel coronary artery bypass graft. Postoperative day 3. on mechanical ventilator expected from surgery, extubated now. Triple-vessel coronary disease with recent non-ST elevated ID and stent placement Hypertension Diabetes type 2 [id number] Family history of coronary artery disease History of hernia surgery and back surgeries and meniscal repair surgeries. No history of prior smoking DVT prophylaxis Plan: Patient will be continued on telemetry monitoring. off mechanical ventilator. Currently on insulin drip for blood sugar control. Patient will be continued aspirin, statins. Continue with current management and further recommendations based on the clinical course. Time with Patient: Greater than 30
[2020-02-29] MEDS: HEPARIN SODIUM,PORCINE 5,000 UNIT/ML 1 ML VIAL SQ SCH ×2 (04:05→12:00)
[2020-02-29 04:11] VITALS: RESP 16
[2020-02-29 06:24] LABS: Glucose,Whole Blood 93 mg/dL (75-99)
[2020-02-29] MEDS: INSULIN ASPART (NovoLOG) 100 UNIT/ML VIAL SQ SCH ×2 (06:25→11:50)
[2020-02-29] MEDS: PANTOPRAZOLE 40 MG TABLET PO SCH (06:29)
[2020-02-29] MEDS: LEVOTHYROXINE 125 MCG TAB PO SCH (06:29)
[2020-02-29] MEDS: KETOROLAC 15 MG/ML 1 ML VIAL IVP SCH ×2 (06:29→14:06)
[2020-02-29] MEDS: IPRATROPIUM-ALBUTEROL 3 ML NEB INHALATION SCH ×3 (07:31→15:15)
--- NOTE | 2020-02-29 08:24 | XR ---
EXAMINATION TYPE: XR chest 1V portable DATE OF EXAM: 02/29/2020 Comparison: 02/28/2020 Clinical History: Postoperative CABG Findings: Median sternotomy wires are present with post-CABG clips in the mediastinum. Small left pleural effus ion with left basilar patchy opacity remains. Effusion on the right shows improvement. Upper lungs ar e clear. Impression: Residual small left effusion with left basilar and retrocardiac atelectasis. Effusion on the right kline s improved.
[2020-02-29 08:34] VITALS: TEMP 97.4
[2020-02-29] MEDS: ASPIRIN 325 MG TAB PO SCH (08:36)
[2020-02-29] MEDS: SERTRALINE 25 MG TAB PO SCH (08:36)
[2020-02-29] MEDS: CLOPIDOGREL 75 MG TAB PO SCH (08:36)
[2020-02-29] MEDS: METOPROLOL TARTRATE 50 MG TAB PO SCH (08:36)
[2020-02-29] MEDS: ATORVASTATIN 40 MG TAB PO SCH (08:36)
[2020-02-29] MEDS: ACETAMINOPHEN TAB 500 MG TAB PO PRN (08:37)
[2020-02-29 08:43] LABS: HCT 38.9 % (39.0-53.0); HGB 13.2 gm/dL (13.0-17.5); MCH 30.3 pg (25.0-35.0); MCHC 33.9 g/dL (31.0-37.0); MCV 89.4 fL (80.0-100.0); Mean Platelet Volume 6.9; Platelet Count 207 k/uL (150-450); RBC 4.35 m/uL (4.30-5.90); RDW 13.2 % (11.5-15.5); WBC 7.8 k/uL (3.8-10.6)
[2020-02-29 08:55] LABS: African American GFR (CKD) >90 (>60 ml/min/1.73 sqM); Anion Gap 5 mmol/L; Blood Urea Nitrogen 28 mg/dL (9-20); Calcium 8.6 mg/dL (8.4-10.2); Carbon Dioxide 26 mmol/L (22-30); Chloride 108 mmol/L (98-107); Glucose 137 mg/dL (74-99); Non-African American GFR(CKD) 82 (>60 ml/min/1.73 sqM); Potassium 4.3 mmol/L (3.5-5.1); Sodium 139 mmol/L (137-145)
[2020-02-29] MEDS: TRIAMCINOLONE 0.1% CREAM 80 GM TUBE TOPICAL SCH (11:50)
[2020-02-29 11:52] LABS: Glucose,Whole Blood 109 mg/dL (75-99)
[2020-02-29 12:00] VITALS: BP 122/73; PULSE 63
--- NOTE | 2020-02-29 12:44 | P.PN ---
Subjective Progress Note Date: 02/29/20 HISTORY OF PRESENT ILLNESS: Patient is status post CABG 1 with HERNDON to LAD. Patient examined this morning the cardiac step down unit. He is sitting up in a chair. He denies chest pain or pressure. Denies shortness of breath. Patient has been ambulating in the hallway. Vital signs stable. PHYSICAL EXAM: VITAL SIGNS: Reviewed. GENERAL: Well-developed in no acute distress. NECK: Supple. No JVD or thyromegaly LUNGS: Respirations even and unlabored. Lungs diminished bilaterally. No crackles noted. HEART: Regular rate and rhythm. S1 and S2 heard. Heart hugger in place. EXTREMITIES: Normal range of motion. No clubbing or cyanosis. Peripheral pulses intact. No lower extremity edema ASSESSMENT: Coronary artery disease with previous stenting to the LAD, status post CABG 1 HERNDON to LAD Hypertension Hyperlipidemia Former nicotine dependence Family history of premature coronary artery disease PLAN: Continue current cardiac medications Increase activity as tolerated Encouraged continued use of incentive spirometer Patient is stable for discharge from a cardiac perspective. He is to follow up outpatient with Dr. Andres. Nurse practitioner note has been reviewed by physician. Signing provider agrees with the documented findings, assessment, and plan of care. Objective - Vital Signs Vital signs: Vital Signs Temp 97.4 F L 02/29/20 08:00 Pulse 63 02/29/20 11:58 Resp 16 02/29/20 11:58 BP 122/73 02/29/20 11:58 Pulse Ox 93 L 02/29/20 08:00 Intake & Output 02/28/20 02/29/20 02/29/20 18:59 06:59 18:59 Intake Total 636 660 Output Total 700 Balance 636 -700 660 Weight 93.4 kg Intake: Oral 636 660 Output: Urine 700 Other: Voiding Method Toilet Toilet # Voids 2 1 # Bowel Movements 1 ABP, PAP, CO, CI - Last Documented Arterial Blood Pressure 130/64 Pulmonary Artery Pressure 28/10 Cardiac Output 4.3 Cardiac Index 2 - Labs CBC & Chem 7: 02/29/20 08:04 02/29/20 08:04 Labs: Abnormal Lab Results - Last 24 Hours (Table) 02/28/20 02/28/20 02/29/20 Range/Units 16:37 20:26 08:04 Hct 38.9 L (39.0-53.0) % Chloride (98-107) mmol/L BUN (9-20) mg/dL Glucose (74-99) mg/dL POC Glucose (mg/dL) 106 H 110 H (75-99) mg/dL 02/29/20 02/29/20 Range/Units 08:04 11:50 Hct (39.0-53.0) % Chloride 108 H (98-107) mmol/L BUN 28 H (9-20) mg/dL Glucose 137 H (74-99) mg/dL POC Glucose (mg/dL) 109 H (75-99) mg/dL
--- NOTE | 2020-02-29 13:52 | P.DS ---
Providers Date of admission: 02/25/20 05:44 Expected date of discharge: 02/29/20 Attending physician: Theodore Arias Consults: 02/25/20 11:09 Consult Physician Routine Consulting Provider: Marisabel Briseno Consult Reason/Comments: Wet Cotton Feeder Consult: post cardiac surgery Do you want consulting provider notified?: Yes Consult Physician Routine Consulting Provider: Celestino Palma Consult Reason/Comments: On Awake Counselor Consult: post cardiac surgery Do you want consulting provider notified?: Yes Consult Physician Routine Consulting Provider: Chastity Carballo Consult Reason/Comments: med mgmt; [facility] patient Do you want consulting provider notified?: Yes Primary care physician: [facility] Hospital Course: FINAL DIAGNOSIS: 1. Coronary artery disease, history of stenting to the LAD in August 2018, status post off pump CABG HERNDON to the LAD 2. Hypertension 3. Hyperlipidemia 4. Hypothyroidism 5. Osteoarthritis 6. Remote history of tobacco use 7. Family history of premature coronary artery disease PRINCIPAL PROCEDURE: 1. Off-pump coronary artery bypass grafting 1 with left internal mammary artery to left anterior descending coronary artery. HISTORY OF PRESENT ILLNESS: This is a 69-year-old gentleman [facility] an [facility] basis. He also follows with Dr. Andres from [facility]. He has a past medical history significant for coronary artery disease with previous stent placement to his left anterior descending coronary artery in August 2018, hypertension, hyperlipidemia, hypothyroidism, osteoarthritis, tobacco use as a teenager and family history of premature coronary artery disease with 2 brothers diagnosed before the age of 60. Recently, the patient has had complaints of progressive shortness of breath and exertional chest discomfort which he reports has been present for around 6 months prior to his stent placement. Due to his history of coronary artery disease and his recent symptoms he underwent an elective cardiac catheterization on 02/18/2020 which demonstrated a 99% stenosis of his proximal left anterior descending coronary artery. He also underwent a 2-D echo cardiogram which showed a normal LV size with ejection fraction 45-50%, grade 1 diastolic dysfunction, mild left ventricular hypertrophy, mild mitral valve regurgitation with calcified mitral valve and mild tricuspid valve regurgitation. Subsequently due to the findings on the cardiac catheterization a consult was placed to Dr. Theodore Arias from cardiothoracic surgery for further evaluation and treatment recommendations including myocardial revascularization surgery. Dr. Arias met with the patient, discussed treatment options including myocardial revascularization surgery, risks and benefits of myocardial revascularization surgery including the STS risk score. Knowing the risks as myocardial revascularization surgery patient wished to proceed with the surgical option. HOSPITAL COURSE: On 02/25/2020 the patient was admitted to the hospital, after obtaining consent he was taken to the preoperative area, prepared in the usual fashion, and subseq uently taken to the operating room where Dr. Theodore Arias performed an off-pump coronary artery bypass grafting 1 with his left internal mammary artery to left anterior descending coronary artery. Upon completion of the surgery the patient was transferred to the cardiovascular intensive care unit where he was recovered, monitored hemodynamically and where he progressed cardiac rehabilitation phase 1. He was extubated, all lines, tubes and supportive drips were discontinued when appropriate and he was transferred to the third floor cardiac stepdown unit for further monitoring and rehabilitation. His oxygen was titrated down, he continued to work with physical/occupational therapy and cardiac rehab, he was tolerating an oral diet, his pain was well-controlled and he was ready to be discharged home with [facility] on postoperative day #4. He has received written and verbal instructions regarding his medications, activity restrictions, signs and symptoms requiring physician notification and his follow-up appointments. COMPLICATIONS: There were no postoperative complications. CONSULTATIONS: 1. Dr. Palma for cardiology management. 2. Dr. Briseno for pulmonary and ventilator management. 3. Dr. Duron for medical management. Plan - Discharge Summary Discharge Rx Participant: Yes New Discharge Prescriptions: New Aspirin 325 mg PO DAILY #30 tab Metoprolol Tartrate [Lopressor] 50 mg PO BID #60 tab Clopidogrel [Plavix] 75 mg PO DAILY #30 tab Sennosides-Docusate Sodium [Senokot-S] 2 each PO HS #7 tab Acetaminophen Tab [Tylenol] 1,000 mg PO Q6HR PRN tab PRN Reason: Fever And/ Or Pain Continue Saw [place] 450 mg PO BID Montelukast [Singulair] 10 mg PO HS Levothyroxine Sodium [Synthroid] 125 mcg PO DAILY Fluticasone Nasal [place] [Flonase Nasal [place]] 2 spr EA NOSTRIL HS Omeprazole 20 mg PO DAILY Atorvastatin [Lipitor] 80 mg PO HS #303 tab Cholecalciferol [Vitamin D3 (25 Mcg = 1000 Iu)] 2,000 unit PO DAILY Triamcinolone Acetonide [Triamcinolone Acetonide 0.025%] 1 applic TOPICAL DAILY PRN PRN Reason: Skin Irritation Discontinued Aspirin [Adult Low Dose Aspirin EC] 81 mg PO DAILY Metoprolol Tartrate 25 mg PO BID Nitroglycerin Sl Tabs [Nitrostat] 0.4 mg SUBLINGUAL Q5M PRN #25 tab PRN Reason: Chest Pain amLODIPine [Norvasc] 5 mg PO HS Benazepril HCl [Lotensin] 20 mg PO HS Isosorbide Mononitrate ER [Imdur] 30 mg PO DAILY #30 tab.er.24h Discharge Medication List Fluticasone Nasal [place] [Flonase Nasal [place]] 2 spr EA NOSTRIL HS 02/16/15 [History] Levothyroxine Sodium [Synthroid] 125 mcg PO DAILY 02/16/15 [History] Montelukast [Singulair] 10 mg PO HS 02/16/15 [History] Saw [place] 450 mg PO BID 02/16/15 [History] Omeprazole 20 mg PO DAILY 08/08/18 [History] Atorvastatin [Lipitor] 80 mg PO HS #303 tab 08/12/18 [Rx] Cholecalciferol [Vitamin D3 (25 Mcg = 1000 Iu)] 2,000 unit PO DAILY 02/16/20 [History] Triamcinolone Acetonide [Triamcinolone Acetonide 0.025%] 1 applic TOPICAL DAILY PRN 02/23/20 [History] Acetaminophen Tab [Tylenol] 1,000 mg PO Q6HR PRN tab 02/29/20 [Rx] Aspirin 325 mg PO DAILY #30 tab 02/29/20 [Rx] Clopidogrel [Plavix] 75 mg PO DAILY #30 tab 02/29/20 [Rx] Metoprolol Tartrate [Lopressor] 50 mg PO BID #60 tab 02/29/20 [Rx] Sennosides-Docusate Sodium [Senokot-S] 2 each PO HS #7 tab 02/29/20 [Rx] Follow up Appointment(s)/Referral(s): Marisabel Briseno MD [STAFF PHYSICIAN] - 03/08/20 1:15 pm Olivier Andres MD [STAFF PHYSICIAN] - 10 Days (office will call with a follow up appointment, per [place].) [facility] [NON-STAFF] - 4 Weeks (You will be called approximately 4-6 weeks after surgery for evaluation for cardiac rehab) Theodore Arias MD [STAFF PHYSICIAN] - 03/17/20 9:30 am Sky Mclaughlin NPC [Nurse Practitioner] - 03/07/20 11:00 am [facility] - 1-2 Days [facility] - 03/14/20 10:30 am (Jeet ACUÑA at the [facility]. ) Ambulatory/Diagnostic Orders: Complete Blood Count w/diff [LAB.AMB] Time Frame: 03/03/20, Facility: [facility], Location: Laboratory [facility] Comprehensive Metabolic Panel [LAB.AMB] Time Frame: 03/03/20, Facility: [facility], Location: Laboratory [facility] Activity/Diet/Wound Care/Special Instructions: DISCHARGE INSTRUCTIONS: 1. No driving for 4 weeks, or until physician gives their ok. 2. The patient should sleep in their own bed, no medical bed needed. 3. Stairs are not an issue. If the bedroom is upstairs, it is advised that the patient go up at night and down in the morning for the first week. Go slowly, using handrail and take 1 step at a time. 4. TOPHER hose are to be worn for 30 days or until physician discontinues. 5. Heart hugger is to be worn 100% of the time until physician discontinues.(except when showering) 6. No lifting, pushing, or pulling more than 10 pounds for 12 weeks. The physician will advise of any restriction changes. 7. The patient is expected to continue the prescribed walking program. 8. Continue pain control per as needed orders. 9. Continue with incentive spirometry and splinting/heart hugger until otherwise directed by the physician. 10. Must shower daily using liquid antibacterial soap and a separate white washcloth for each individual incision. 11. Routine sternal incision care. No powders, lotions, ointments on incisions. No dressings are necessary on incisions unless they are draining. Dermabond tape is to remain on sternal incision until surgeon follow-up. 12. Please call surgeon/TELECOMMUNICATIONS ADMINISTRATOR for temp greater than 101 F or purulent drainage from incisions. 13. All prescriptions given by surgeon for 30 days. Refills need to be filled through guidance services coordinator/primary care physician. 14. A Red armband has been placed on the patient. It should be worn for 30 days post surgery and will be removed by the cardiac surgeons. If an ER visit is necessary, please make sure the number on the Red armband is called. 15. You have been referred to and are expected to begin Cardiac Rehab in approximately 4-6 weeks. HOME HEALTH SERVICES TO PROVIDE: RN SKILLED HOME CARE SERVICES FOR POST-OP SURGICAL PATIENTS WITH THE FOLLOWING: Coronary Artery Bypass Surgery (CABG), Mitral Valve Replacement/Repair ( MVR), Aortic Valve Replacement/Repair (AVR) RN TO CONTINUE EDUCATION FROM ``ROAD TO A HEALTH HEART PATIENT EDUCATION MANUAL (GIVEN TO PATIENT IN THE HOSPITAL) MEDICATION RECONCILIATION WITH EDUCATION NEEDED ON FIRST HOME VISIT EMPHASIZE IMPORTANCE OF WEARING BREAST SUPPORT/HEART HUGGER ENCOURAGE USE OF INCENTIVE SPIROMETER 10 X EVERY HOUR WHILE AWAKE ENCOURAGE UTILIZATION OF LOWER EXTREMITY COMPRESSION STOCKINGS/TOPHER HOSE and ELEVATE LEGS ABOVE LEVEL OF HEART WHILE AT REST. ENCOURAGE AMBULATION 3-5x/day INCREASING TOLERATES, WHILE AVOIDING EXTREMES IN TEMPERATURE FREQUENCY: RN TO OPEN THE PATIENT WITHIN 24 HOURS OF DISCHARGE FROM THE HOSPITAL WITH TELEHEALTH INSTALLED AT [facility], RN TO VISIT 2-3 X A WEEK FOR 4 WEEKS ESTABLISHED BY PATIENT NEEDS. LABORATORY: CBC, CMP TO BE DRAWN ON THE THIRD DAY HOME, (RAN STAT) FAX RESULTS TO [phone]. TELEHEALTH PARAMETERS: WEIGHT: NOTIFY MD OF WEIGHT GAIN OF 2 LBS IN 24 HOURS OR 5 LBS IN ONE WEEK HR: NOTIFY MD OF HR <55 BPM OR HR>100 BPM BP: NOTIFY MD IF BP <90/55 OR BP>140/100 O2 SAT: NOTIFY MD IF PO2<93% ON ROOM AIR SEND TELEHEALTH REPORT TO EYE SURGEON AND CARDIOVASCULAR SURGEON THE FIRST WEEK OF CARE AND THEN BI-WEEKLY. PLEASE ADDITIONALLY COMMUNICATE ANY ABNORMALS AND NEW FINDINGS TO THE SURGEONS OFFICE. For any questions or concerns please call hospice clinical manager Angie @ or Arturo @ Discharge Disposition: HOME WITH HOME HEALTH SERVICES
--- NOTE | 2020-02-29 15:49 | PN ---
PROGRESS NOTE PULMONARY/CRITICAL CARE PROGRESS NOTE: DATE OF SERVICE: 02/29/2020 This is a 69-year-old gentleman whom I am seeing on postoperative day number 4 from bypass grafting, HERNDON to LAD, done off pump. The patient carries with him a diagnosis of benign essential hypertension, liy-iejrkym-zriqeegzv diabetes mellitus, GERD with esophagitis, significant family history for premature coronary artery disease and postoperative atelectasis. In addition, the patient underwent routine postoperative ventilator management. Currently he is doing well. Plans are for discharging this patient potentially today. Not sure about that totally. PHYSICAL EXAMINATION: Currently the patient's vital signs are stable. Temperature 97.4, heart rate 63, respiratory rate 16, blood pressure 122/73, mean 89, room-air saturation 93%. GENERAL APPEARANCE: Appears in no acute distress. HEENT: Examination is grossly unremarkable. NECK: Supple. Full range of motion. No adenopathy. Neck veins are flat. CARDIOVASCULAR: Examination reveals regular rhythm and rate. Heart rate in mid 60s. S1, S2 normal. No S3, S4 or murmur. LUNGS: Lungs are relatively clear. No wheezes or rhonchi. A few scattered crackles. ABDOMEN: Soft. Bowel sounds are heard. EXTREMITIES: Intact. No cyanosis, clubbing or edema. SKIN: Without rash. NEUROLOGIC: Neurologic examination is nonfocal. LABS/IMAGING: White count 7.8, hemoglobin 13.2, hematocrit 38.9, platelet count 207,000. Sodium 139, potassium 4.3, chloride 108, CO2 26. Anion gap is 5. BUN and creatinine were 20 and 0.94. Microbiology is currently negative. A chest x-ray done today shows pretty clear lung callahan except for either atelectasis or small effusion at the left lung base. CURRENT MEDICATIONS: Reviewed. The patient is on Tylenol, aspirin, Lipitor, Cepacol lozenges, Dulcolax, Plavix, Benadryl, subcutaneous heparin, insulin, DuoNeb, Toradol, levothyroxine, magnesium replacement, Reglan, metoprolol, Singulair, Zofran, Protonix, phosphorus replacement, potassium replacement, Senna and Kenalog cream. ASSESSMENT: 1. Postoperative day number 4, status post HERNDON to LAD bypass, off pump. 2. Routine postoperative ventilator management. 3. Benign essential hypertension. 4. Skx-qbnossz-fjolzwkms diabetes mellitus. 5. History of gastroesophageal reflux disease without esophagitis. 6. Significant family history for premature coronary artery disease. 7. Postoperative atelectasis, resolved. PLAN: The patient is doing well. He might be considered for discharge today. Not sure about that. He has been weaned off of oxygen. Would advise the patient to continue with hourly use of the incentive spirometer. In addition, deep breathing, coughing and clearing of secretions would be helpful in helping to pop open that left lower lobe and also to prevent additional atelectasis and/or pleural effusion. Will continue to follow. Prognosis is guarded. MMODL / IJN: [id number] /
== END 2020-02-29 15:49 | disposition home health service (06) | DRG 236 ==
LOC: 2ORMAIN 05:44 → 2SICU 11:34 → 3SCARD 02-28 01:09
PROVIDERS: ADMIT Thoracic Surgery (Cardiothoracic Vascular Surgery); ATTEND Thoracic Surgery (Cardiothoracic Vascular Surgery)
PROC: 0BH17EZ Insertion of Endotracheal Airway into Trachea, Via Natural or Artificial Opening (ICD-10-PCS; 2020-02-25)
PROC: 5A1935Z Respiratory Ventilation, Less than 24 Consecutive Hours (ICD-10-PCS; 2020-02-25)
PROC: 02100Z9 Bypass Coronary Artery, One Artery from Left Internal Mammary, Open Approach (ICD-10-PCS; principal; 2020-02-25 08:00)
DX: I25.10 Atherosclerotic heart disease of native coronary artery without angina pectoris (principal); J98.11 Atelectasis; E78.5 Hyperlipidemia, unspecified; E11.9 Type 2 diabetes mellitus without complications; H91.90 Unspecified hearing loss, unspecified ear; I10 Essential (primary) hypertension; K21.00 Gastro-esophageal reflux disease with esophagitis, without bleeding; M19.90 Unspecified osteoarthritis, unspecified site; I08.1 Rheumatic disorders of both mitral and tricuspid valves; E03.9 Hypothyroidism, unspecified; Z79.82 Long term (current) use of aspirin; Z79.84 Long term (current) use of oral hypoglycemic drugs; Z79.890 Hormone replacement therapy; Z79.899 Other long term (current) drug therapy; Z82.49 Family history of ischemic heart disease and other diseases of the circulatory system; Z82.5 Family history of asthma and other chronic lower respiratory diseases; Z87.891 Personal history of nicotine dependence; Z95.5 Presence of coronary angioplasty implant and graft; I25.2 Old myocardial infarction
CPT/HCPCS: 36415; 71045; 71046; 80048; 80053; 82330; 82805; 83735; 84132; 85025; 85027; 85520; 85610; 85730; 86850; 86891; 86900; 86901; 86920; 94002; 94640; 94760

== ENCOUNTER → 2022-01-02 | Outpatient (CLI) | payer MEDICARE ==
--- NOTE | 2022-01-02 11:38 | US ---
EXAMINATION TYPE: US carotid duplex BILAT DATE OF EXAM: 01/02/2022 COMPARISON: US carotid 02/18/2020. CLINICAL HISTORY: I65.29 OCCLUSION AND STENOSIS OF UNSPECIFIED CAROT. Stenosis TECHNIQUE: Carotid duplex ultrasound examination. Indirect Doppler criteria was utilized. FINDINGS: EXAM MEASUREMENTS: RIGHT: Peak Systolic Velocity (PSV) cm/sec ----- Right CCA: 76.0 ----- Right ICA: 128 ----- Right ECA: 145 ICA/CCA ratio: 1.7 RIGHT: End Diastole cm/sec ----- Right CCA: 20.1 ----- Right ICA: 49.8 ----- Right ECA: 14.8 LEFT: Peak Systolic Velocity (PSV) cm/sec ----- Left CCA: 67.3 ----- Left ICA: 59.6 ----- Left ECA: 143 ICA/CCA ratio: 0.9 LEFT: End Diastole cm/sec ----- Left CCA: 15.9 ----- Left ICA: 13.4 ----- Left ECA: 16.2 VERTEBRALS (direction of flow): Right Vertebral: Antegrade Left Vertebral: Antegrade Rhythm: Normal LINTER TENDER NOTES: Elevated velocities bilateral ECA's, otherwise no evidence significant stenosis Mild to moderate eccentric plaque of the carotid bulbs with left greater than right. IMPRESSION: Mild to moderate atherosclerotic plaque bilaterally without hemodynamically significant stenosis of e ither internal carotid artery. Criteria for Assigning % of Stenosis / Diameter reduction (Estimation based on the indirect measurements of the internal carotid artery velocities (ICA PSV). 1. Normal (no stenosis)=ICA PSV < 125 cm/s: ratio < 2.0: ICA EDV<40 cm/s. 2. Less than 50% stenosis=ICA PSV < 125 cm/s: ratio < 2.0: ICA EDV<40 cm/s. 3. 50 to 69% stenosis=ICA PSV of 125 to 230 cm/s: ration 2.0 ? 4.0: ICA EDV 40-100 cm/s. 4. Greater than 70% stenosis to near occlusion= ICA PSV > 230 cm/s: ratio > 4.0: ICA EDV > 100 cm/s. 5. Near occlusion= ICA PSV velocities may be low or undetectable: variable ratio and ICA EDV. 6. Total occlusion=unable to detect flow.
== END | disposition home or self-care (01) ==
LOC: RADUSWWP 10:54
PROVIDERS: ATTEND Family Medicine
DX: I65.23 Occlusion and stenosis of bilateral carotid arteries (principal)
CPT/HCPCS: 93880

== ENCOUNTER → 2022-11-06 | Outpatient (CLI) | payer MEDICARE ==
[2022-11-06 11:44] LABS: ALT 25 U/L (10-49); AST 23 U/L (14-35); Chol/HDL Ratio 3.39 Ratio
== END | disposition home or self-care (01) ==
LOC: LABWHC1 07:39
PROVIDERS: ATTEND Internal Medicine Interventional Cardiology
DX: E78.2 Mixed hyperlipidemia (principal)
CPT/HCPCS: 36415; 80061; 84450; 84460

== ENCOUNTER → 2023-05-06 | Outpatient (CLI) | payer MEDICARE ==
[2023-05-06 15:44] LABS: ALT 36 U/L (10-49); AST 21 U/L (14-35); Alkaline Phosphatase 84 U/L (41-126); Blood Urea Nitrogen 25.1 mg/dL (9.0-27.0); Calcium 9.3 mg/dL (8.7-10.3); Carbon Dioxide 25.3 mmol/L (21.6-31.8); Chloride 109 mmol/L (96-109); Chol/HDL Ratio 3.36 Ratio; Glucose 113 mg/dL (70-110); LDL Cholesterol,Calculated 61.5 mg/dL (0.0-131.0); Potassium 3.8 mmol/L (3.5-5.5); Sodium 145 mmol/L (135-145); Total Bilirubin 0.5 mg/dL (0.3-1.2)
== END | disposition home or self-care (01) ==
LOC: LABWHC1 07:37
PROVIDERS: ATTEND Internal Medicine Interventional Cardiology
DX: E78.2 Mixed hyperlipidemia (principal)
CPT/HCPCS: 36415; 80053; 80061

== ENCOUNTER → 2023-11-12 | Outpatient (CLI) | payer MEDICARE ==
[2023-11-12 10:43] LABS: ALT 36 U/L (10-49); AST 22 U/L (14-35); LDL Cholesterol,Calculated 60.3 mg/dL (0.0-131.0)
== END | disposition home or self-care (01) ==
LOC: LABWHC1 07:18
PROVIDERS: ATTEND Internal Medicine Interventional Cardiology
DX: E78.2 Mixed hyperlipidemia (principal)
CPT/HCPCS: 36415; 80061; 84450; 84460

== ENCOUNTER → 2024-06-08 | Outpatient (CLI) | payer MEDICARE ==
[2024-06-08 19:00] LABS: ALT 47 U/L (10-49); AST 28 U/L (14-35); Albumin 4.1 g/dL (3.8-4.9); Albumin/Globulin Ratio 1.95 Ratio (1.60-3.17); Alkaline Phosphatase 92 U/L (41-126); Blood Urea Nitrogen 21.6 mg/dL (9.0-27.0); Calcium 9.5 mg/dL (8.7-10.3); Carbon Dioxide 27.5 mmol/L (21.6-31.8); Chloride 105 mmol/L (96-109); Chol/HDL Ratio 4.62 Ratio; Globulin 2.1 g/dL (1.6-3.3); Glucose 192 mg/dL (70-110); LDL Cholesterol,Calculated 44.8 mg/dL (0.0-131.0); Potassium 3.8 mmol/L (3.5-5.5); Sodium 143 mmol/L (135-145); Total Bilirubin 0.4 mg/dL (0.3-1.2); Total Protein 6.2 g/dL (6.2-8.2)
== END | disposition home or self-care (01) ==
LOC: LABWHC1 13:46
PROVIDERS: ATTEND Internal Medicine Clinical Cardiac Electrophysiology
DX: I10 Essential (primary) hypertension (principal); E78.2 Mixed hyperlipidemia
CPT/HCPCS: 36415; 80053; 80061